=== PATIENT | female | born 1980 | race African-American/Black ===

== ENCOUNTER 2020-12-17 18:25 | Inpatient (IN) | payer OTHER, MEDICAID ==
--- NOTE | 2020-12-17 19:54 | RAD REPORT ---
EXAM DESCRIPTION: RAD - Chest Single View - 12/17/2020 7:47 pm CLINICAL HISTORY: SOB Chest pain. COMPARISON: Chest Pa And Lat (2 Views) dated 11/16/2016; CHEST PA AND LAT 2 VIEW dated 10/07/2015; SAMEERA ST PA AND LAT 2 VIEW dated 09/24/2013; CHEST SINGLE VIEW dated 07/20/2009 FINDINGS: Portable technique limits examination quality. Patchy opacities are present particularly in the right lung likely representing pulmonary edema or pn eumonia. The heart is moderately enlarged in size. No displaced fractures.
[2020-12-17 20:13] LABS: Protime INR 0.97
[2020-12-17 20:14] LABS: Basophils % 0.8 % (0-1.3); Lymphocytes % 17.2 % (15.3-44.8); MPV 9.1 fL (7.6-11.3); RBC Red Blood Cell Count 3.59 M/uL (3.86-4.86)
[2020-12-17] MEDS ORDERED: FUROSEMIDE 20 MG/ 2ML VIAL ONE (20:25)
[2020-12-17 20:27] LABS: ALT/SGPT 10 U/L (12-78); AST/SGOT 11 U/L (15-37); Albumin 2.6 g/dL (3.4-5.0); Alkaline Phosphatase 90 U/L (45-117); BUN Blood Urea Nitrogen 31 mg/dL (7-18); Bicarbonate 26 mmol/L (21-32); Bilirubin Direct < 0.1 mg/dL (0-0.2); Bilirubin Total 0.3 mg/dL (0.2-1.0); Glucose Level 336 mg/dL (74-106); Magnesium 1.5 mg/dL (1.8-2.4); Potassium 4.3 mmol/L (3.5-5.1); Protein, Total 7.9 g/dL (6.4-8.2); Sodium Level 139 mmol/L (136-145)
[2020-12-17 20:29] LABS: NT PRO-BNP 2055 pg/mL (<125); Troponin (Emerg Dept Use Only) < 0.02 ng/mL (0.0-0.045)
[2020-12-17 20:52] LABS: Urine Blood 2+ (NEG); Urine Glucose 2+ (NEG); Urine Protein 3+ (NEG)
[2020-12-17] MEDS ORDERED: NITROGLYCERIN 1 GM PKT TD ONE (21:21)
--- NOTE | 2020-12-17 21:22 | EDPHYS ---
Physician Documentation [facility] Name: Mireille Donovan Age: 40 yrs Sex: Female : 1980 Arrival Date: 12/17/2020 Time: 18:28 Bed 15 Private MD: ED Physician Aj Quan HPI: 12/17 19:27 This 40 yrs old Black Female presents to ER via Wheelchair with complaints of Shortness mh7 Of Breath, CHF. 19:27 The patient has shortness of breath with light activity. Onset: The symptoms/episode mh7 began/occurred 4 day(s) ago. Duration: The symptoms are intermittent, with no pattern. The patient's shortness of breath is aggravated by exertion. Associated signs and symptoms: Pertinent positives: non-productive cough, Pertinent negatives: chest pain, productive cough, diaphoresis, dizziness, fever, hemoptysis, loss of consciousness, nausea, numbness in extremities, visual changes, vomiting. Severity of symptoms: At their worst the symptoms were moderate 2 hour(s) ago, in the emergency department the symptoms are unchanged. The patient has experienced similar episodes in the past, several times. Historical: - Allergies: 18:36 No Known Allergies; ll1 - Home Meds: 20:04 atorvastatin 80 mg Oral tab 1 tab once daily [Active]; metformin 500 mg Oral tab 1 tab vg1 2 times per day [Active]; hydrochlorothiazide 25 mg Oral tab 1 tab once daily [Active]; carvedilol 25 mg Oral tab 1 tab 2 times per day [Active]; Bumetanide Oral [Active]; Spironolactone Oral [Active]; Hydralazine Oral [Active]; - PMHx: 18:36 CVA; Diabetes - IDDM; Hypertension; CHF; ll1 - PSHx: 18:36 ; R knee; ll1 - Immunization history:: Flu vaccine is not up to date. - Social history:: Smoking status: Patient denies any tobacco usage or history of. ROS: 19:27 Constitutional: Negative for fever, chills, and weight loss, Eyes: Negative for injury, mh7 pain, redness, and discharge, ENT: Negative for injury, pain, and discharge, Neck: Negative for injury, pain, and swelling, Cardiovascular: Negative for chest pain, palpitations, and edema, Abdomen/GI: Negative for abdominal pain, nausea, vomiting, diarrhea, and constipation, Back: Negative for injury and pain, : Negative for injury, bleeding, discharge, and swelling, MS/Extremity: Negative for injury and deformity, Skin: Negative for injury, rash, and discoloration, Neuro: Negative for headache, weakness, numbness, tingling, and seizure, Psych: Negative for depression, anxiety, suicide ideation, homicidal ideation, and hallucinations, Allergy/Immunology: Negative for hives, rash, and allergies, Endocrine: Negative for neck swelling, polydipsia, polyuria, polyphagia, and marked weight changes, Hematologic/Lymphatic: Negative for swollen nodes, abnormal bleeding, and unusual bruising. Exam: 19:27 Constitutional: This is a well developed, well nourished patient who is awake, alert, mh7 and in no acute distress. Head/Face: Normocephalic, atraumatic. Eyes: Pupils equal round and reactive to light, extra-ocular motions intact. Lids and lashes normal. Conjunctiva and sclera are non-icteric and not injected. Cornea within normal limits. Periorbital areas with no swelling, redness, or edema. Neck: Trachea midline, no thyromegaly or masses palpated, and no cervical lymphadenopathy. Supple, full range of motion without nuchal rigidity, or vertebral point tenderness. No Meningismus. Chest/axilla: Normal chest wall appearance and motion. Nontender with no deformity. No lesions are appreciated. 19:27 Abdomen/GI: Soft, non-tender, with normal bowel sounds. No distension or tympany. No guarding or rebound. No evidence of tenderness throughout. Back: No spinal tenderness. No costovertebral tenderness. Full range of motion. Skin: Warm, dry with normal turgor. Normal color with no rashes, no lesions, and no evidence of cellulitis. MS/ Extremity: Pulses equal, no cyanosis. Neurovascular intact. Full, normal range of motion. Neuro: Awake and alert, GCS 15, oriented to person, place, time, and situation. Cranial nerves II-XII grossly intact. Motor strength 5/5 in all extremities. Sensory grossly intact. Cerebellar exam normal. Normal gait. Psych: Awake, alert, with orientation to person, place and time. Behavior, mood, and affect are within normal limits. 19:27 Cardiovascular: Rate: tachycardic, Rhythm: regular, Pulses: no pulse deficits are appreciated, Heart sounds: normal, normal S1and S2, Edema: is not appreciated, JVD: is not appreciated. 19:27 Respiratory: the patient does not display signs of respiratory distress, Respirations: normal, Breath sounds: rhonchi, that are mild, are scattered, Respiratory rate: 20 Vital Signs: 18:36 BP 231 / 116; Pulse 111; Resp 18; Temp 97.4; Pulse Ox 94% ; Weight 176.9 kg; Height 5 ll1 ft. 5 in. (165.10 cm); Pain 4/10; 18:54 BP 229 / 90; Pulse 105; Resp 22; Pulse Ox 98% on R/A; vg1 20:05 BP 256 / 115; Pulse 105; Resp 24; Pulse Ox 97% on 2 lpm NC; vg1 20:30 BP 230 / 114; Pulse 99; Resp 26; Pulse Ox 98% on 2 lpm NC; vg1 21:00 BP 210 / 113; Pulse 100; Resp 26; Pulse Ox 99% on 2 lpm NC; vg1 18:36 Body Mass Index 64.90 (176.90 kg, 165.10 cm) ll1 MDM: 21:20 Differential diagnosis: Anemia Anxiety Reaction asthma, Bronchitis CHF exacerbation, [facility] Chronic Obstructive Pulmonary Disease Myocardial Infarction pneumonia, Pneumothorax Psychogenic pulmonary edema, reactive airway disease. Data reviewed: vital signs, nurses notes, old medical records, lab test result(s), cardiac enzymes, CBC, electrolytes, urinalysis, EKG, radiologic studies, plain films. Data interpreted: Pulse oximetry: on 2L(s) per nasal canula, is 99 %. Interpretation: acceptable. Counseling: I had a detailed discussion with the patient and/or guardian regarding: the historical points, exam findings, and any diagnostic results supporting the discharge/admit diagnosis, the presence of at least one elevated blood pressure reading (>120/80) during this emergency department visit, lab results, radiology results, the need for further work-up and treatment in the hospital. 21:22 Patient medically screened. [facility] 12/17 19:11 Order name: Basic Metabolic Panel [facility] 12/17 19:11 Order name: CBC with Diff [facility] 12/17 19:11 Order name: LFT's [facility] 12/17 19:11 Order name: Magnesium [facility] 12/17 19:11 Order name: NT PRO-BNP [facility] 12/17 19:11 Order name: PT-INR; Complete Time: 20:55 [facility] 12/17 19:11 Order name: Troponin (emerg Dept Use Only); Complete Time: 20:55 [facility] 12/17 19:11 Order name: Basic Metabolic Panel; Complete Time: 20:55 [facility] 12/17 19:11 Order name: CBC with Automated Diff; Complete Time: 20:55 [facility] 12/17 19:11 Order name: Liver (Hepatic) Function; Complete Time: 20:55 [facility] 12/17 19:11 Order name: Magnesium; Complete Time: 20:55 [facility] 12/17 19:11 Order name: NT PRO-BNP; Complete Time: 20:55 [facility] 12/17 20:05 Order name: Urine Dipstick--Ancillary (enter results); Complete Time: 20:55 [facility] 12/17 20:05 Order name: Urine --Ancillary (enter results); Complete Time: 20:55 [facility] 12/17 19:11 Order name: XRAY Chest (1 view); Complete Time: 20:07 [facility] 12/17 19:11 Order name: EKG; Complete Time: 19:12 [facility] 12/17 19:11 Order name: Cardiac monitoring; Complete Time: 19:53 [facility] 12/17 20:56 Order name: Blood Culture Adult (2) [facility] 12/17 21:17 Order name: SARS-COV-2 RT PCR; Complete Time: 21:17 [facility] 12/17 21:43 Order name: Magnesium [facility] 12/17 21:43 Order name: CONS Pharmacy Consult [facility] 12/17 21:43 Order name: CONS Physician Consult [facility] 12/17 21:43 Order name: Echo with Doppler [facility] 12/17 21:43 Order name: Thyroid Stimulating Hormone [facility] 12/17 21:43 Order name: Troponin I [facility] 12/17 21:44 Order name: Renal Ultrasound-Complete [facility] 12/17 19:11 Order name: EKG - Nurse/Tech; Complete Time: 19:53 [facility] 12/17 19:11 Order name: IV Saline Lock; Complete Time: 19:43 [facility] 12/17 19:11 Order name: Labs collected and sent; Complete Time: 19:43 [facility] 12/17 19:11 Order name: O2 Per Protocol; Complete Time: 19:43 [facility] 12/17 19:11 Order name: O2 Sat Monitoring; Complete Time: 19:43 [facility] 12/17 19:11 Order name: Urine Dipstick-Ancillary (obtain specimen); Complete Time: 20:11 [facility] 12/17 19:15 Order name: Urine Test (obtain specimen); Complete Time: 20:11 7 Administered Medications: 20:15 Drug: Lasix 20 mg Route: IVP; Site: right antecubital; vg1 21:00 Follow up: Response: No adverse reaction [facility] 21:10 Drug: Nitro-Bid Ointment 2 % 1 inches Route: Transdermal; Site: anterior chest wall; vg1 22:16 Follow up: Response: No adverse reaction [facility] 21:42 Drug: Insulin Regular Human 10 units {Co-Signature: jenny (Johnson Waite RN).} Route: vg1 Sub-Q; Site: right upper arm; 22:16 Follow up: Response: No adverse reaction [facility] Disposition: 12/17/20 21:22 Hospitalization ordered by Isabel Varela for Inpatient Admission. Preliminary diagnosis are CHF Exacerbation, Uncontrolled Hypertension. - Bed requested for Telemetry/MedSurg (Inpatient). - Status is Inpatient Admission. vg1 - Condition is Stable. - Problem is an acute exacerbation. - Symptoms have improved. Signatures: Dispatcher [employer] EDPA Mariah Robertson RN RN mw Garcia, Victoria, RN RN vg1 Ted Ward RN RN 1 Aj Quan MD MD [facility] Johnson Waite RN jb4 Corrections: (The following items were deleted from the chart) 20:34 20:09 CORONAVIRUS+MR.LAB.BRZ ordered. [facility] 21:32 21:22 Hospitalization Ordered by Isabel Varela MD for Inpatient Admission. Preliminary mw diagnosis is CHF Exacerbation; Uncontrolled Hypertension. Bed requested for Telemetry/MedSurg (Inpatient). Status is Inpatient Admission. Condition is Stable. Problem is an acute exacerbation. Symptoms have improved. [facility] 22:16 21:32 12/17/2020 21:22 Hospitalization Ordered by Isabel Varela MD for Inpatient vg1 Admission. Preliminary diagnosis is CHF Exacerbation; Uncontrolled Hypertension. Bed requested for Telemetry/MedSurg (Inpatient). Status is Inpatient Admission. Condition is Stable. Problem is an acute exacerbation. Symptoms have improved. mw
--- NOTE | 2020-12-17 21:22 | ER ---
Nurse's Notes [facility] [place] Name: Mireille Donovan Age: 40 yrs Sex: Female : 1980 Arrival Date: 12/17/2020 Time: 18:28 Bed 15 Private MD: Diagnosis: CHF Exacerbation;Uncontrolled Hypertension Presentation: 12/17 18:36 Chief complaint: Patient states: SOB and fluid build up for 4 days. Can't breathe ll1 laying flat. No fever. Coronavirus screen: Client denies travel out of the [place] in the last 14 days. At this time, the client does not indicate any symptoms associated with coronavirus-19. Ebola Screen: Patient denies travel to an Ebola-affected area in the 21 days before illness onset. Initial Sepsis Screen: Does the patient meet any 2 criteria? HR > 90 bpm. No. Patient's initial sepsis screen is negative. Does the patient have a suspected source of infection? Yes: Other: possible CHF. Risk Assessment: Do you want to hurt yourself or someone else? Patient reports no desire to harm self or others. Onset of symptoms was December 13, 2020. 18:36 Method Of Arrival: Wheelchair ll1 18:36 Acuity: NICOLE 3 ll1 Historical: - Allergies: 18:36 No Known Allergies; ll1 - Home Meds: 20:04 atorvastatin 80 mg Oral tab 1 tab once daily [Active]; metformin 500 mg Oral tab 1 tab vg1 2 times per day [Active]; hydrochlorothiazide 25 mg Oral tab 1 tab once daily [Active]; carvedilol 25 mg Oral tab 1 tab 2 times per day [Active]; Bumetanide Oral [Active]; Spironolactone Oral [Active]; Hydralazine Oral [Active]; - PMHx: 18:36 CVA; Diabetes - IDDM; Hypertension; CHF; ll1 - PSHx: 18:36 ; R knee; ll1 - Immunization history:: Flu vaccine is not up to date. - Social history:: Smoking status: Patient denies any tobacco usage or history of. Screenin:54 Abuse screen: Denies threats or abuse. Nutritional screening: No deficits noted. vg1 Tuberculosis screening: No symptoms or risk factors identified. Fall Risk No fall in past 12 months (0 pts). No secondary diagnosis (0 pts). IV access (20 points). Ambulatory Aid- None/Bed Rest/Nurse Assist (0 pts). Gait- Normal/Bed Rest/Wheelchair (0 pts) Mental Status- Oriented to own ability (0 pts). Total Mares Fall Scale indicates No Risk (0-24 pts). Assessment: 18:52 General: Appears in no apparent distress. comfortable, Behavior is calm, cooperative. vg1 Pain: Denies pain. Neuro: Level of Consciousness is awake, alert, obeys commands, Oriented to person, place, time, situation. Cardiovascular: Heart tones S1 S2 Pulses apical and radial pulses equal and regular. Respiratory: Reports shortness of breath when laying on Right side. Airway is patent Respiratory effort is even, unlabored, Respiratory pattern is regular, symmetrical, Breath sounds are clear bilaterally. GI: No signs and/or symptoms were reported involving the gastrointestinal system. : No signs and/or symptoms were reported regarding the genitourinary system. EENT: No signs and/or symptoms were reported regarding the EENT system. Derm: Skin is intact, is healthy with good turgor. Musculoskeletal: Circulation, motion, and sensation intact. 20:04 Reassessment: Patient appears in no apparent distress at this time. No changes from vg1 previously documented assessment. Patient and/or family updated on plan of care and expected duration. Pain level reassessed. Patient is alert, oriented x 3, equal unlabored respirations, skin warm/dry/pink. 20:09 Reassessment: Received VO from Dr Quan to administer Lasix 20 mg IVP x1. vg1 Vital Signs: 18:36 BP 231 / 116; Pulse 111; Resp 18; Temp 97.4; Pulse Ox 94% ; Weight 176.9 kg; Height 5 ll1 ft. 5 in. (165.10 cm); Pain 4/10; 18:54 BP 229 / 90; Pulse 105; Resp 22; Pulse Ox 98% on R/A; vg1 20:05 BP 256 / 115; Pulse 105; Resp 24; Pulse Ox 97% on 2 lpm NC; vg1 20:30 BP 230 / 114; Pulse 99; Resp 26; Pulse Ox 98% on 2 lpm NC; vg1 21:00 BP 210 / 113; Pulse 100; Resp 26; Pulse Ox 99% on 2 lpm NC; vg1 18:36 Body Mass Index 64.90 (176.90 kg, 165.10 cm) ll1 ED Course: 18:28 Patient arrived in ED. mr 18:36 Arm band placed on Patient placed in an exam room, on a stretcher. ll1 18:37 Triage completed. ll1 18:42 Theresa Pratt, RN is Primary Nurse. vg1 18:54 Patient has correct armband on for positive identification. Bed in low position. Call vg1 light in reach. Side rails up X 1. 19:00 Aj Quan MD is Attending Physician. mh7 19:10 Missed attempt(s): 20 gauge in left antecubital area. Bleeding controlled, band aid jp3 applied, catheter tip intact. 19:42 Initial lab(s) drawn, by ED staff, sent to lab. Inserted saline lock: 22 gauge in right vg1 antecubital area, using aseptic technique. ,using aseptic technique. Done by Antonia FREDERICK Blood collected. 19:47 XRAY Chest (1 view) In Process Unspecified. EDMS 19:55 EKG done, by ED staff, reviewed by Aj Quan MD. vg1 20:11 Urine collected: clean catch specimen, clear, hien colored. vg1 20:40 COVID swab sent to lab. jp3 21:00 First set of blood cultures drawn by me. jp3 21:10 Second set of blood cultures drawn by me. jp3 21:21 Isabel Varela MD is Hospitalizing Provider. 7 22:01 No provider procedures requiring assistance completed. Patient admitted, IV remains in vg1 place. Administered Medications: 20:15 Drug: Lasix 20 mg Route: IVP; Site: right antecubital; vg1 21:00 Follow up: Response: No adverse reaction vg1 21:10 Drug: Nitro-Bid Ointment 2 % 1 inches Route: Transdermal; Site: anterior chest wall; vg1 22:16 Follow up: Response: No adverse reaction vg1 21:42 Drug: Insulin Regular Human 10 units {Co-Signature: jbRaymond (Johnson Waite RN).} Route: vg1 Sub-Q; Site: right upper arm; 22:16 Follow up: Response: No adverse reaction vg1 Outcome: 21:22 Decision to Hospitalize by Provider. 7 22:01 Admitted to Tele accompanied by tech, via stretcher, room 214, with oxygen, with chart, vg1 Report called to OTONIEL Lu 22:01 Condition: good 22:01 Instructed on the need for admit. 22:16 Patient left the ED. vg1 Signatures: Dispatcher [employer] STACY Karlo Keyonna Gan, Romie jp3 Theresa Pratt, RN RN vg1 Ted Ward RN RN ll1 Aj Quan MD MD mh7 Johnson Waite RN jb4
--- NOTE | 2020-12-17 21:32 | P.HP ---
Certification for Inpatient With expected LOS: >2 Midnights Patient will require the following post-hospital care: None Practitioner: I am a practitioner with admitting privileges, knowledge of patient current condition, hospital course, and medical plan of care. Services: Services provided to patient in accordance with Admission requirements found in Title 42 Section 412.3 of the Code of Federal Regulations Patient History Date of Service: 12/18/20 Reason for admission: Shortness of breath History of Present Illness: 40-year-old female with past medical history of diabetes mellitus type 1, hypertension, CHF-syetolic with EF 30-395 in 2017 , presented because of worsening shortness of breath, initially was on exertion but later became at rest. On admission she was noted mildly dyspneic requiring supplemental O2. She was also noted with marked elevated blood pressure with systolic of 210/116. She admits to compliance with her medications including her daily lasix use . She denies any chest pain. She denies any fever or chills. She admits to cough which dry sputum. Her cough B screen was negative. Chest x-ray shows bilateral interstitial pattern consistent with pneumonia vessels CHF. She has been admitted for presumed CHF exacerbation. Allergies NKDA Allergy (Uncoded 10/07/15 15:54) Unknown No Known Allergies Allergy (Uncoded 11/23/16 14:03) Unknown Home medications list reviewed: No Home Medications: Liraglutide [Victoza 3-Mandeep] 1.8 ml PO DAILY 11/16/16 Montelukast [Singulair*] 10 mg PO DAILY 11/16/16 Sertraline [Zoloft*] 50 mg PO BEDTIME 11/16/16 Atorvastatin Calcium [Lipitor] 80 mg PO BEDTIME #0 tab 11/18/16 Furosemide [Lasix*] 80 mg PO DAILY #30 tab 11/18/16 Hydralazine [Apresoline*] 50 mg PO TID #90 tab 11/18/16 Sacubitril/Valsartan [Entresto 49 mg-51 mg Tablet] 2 tab PO BID #120 tab 11/18/16 carvediloL [Coreg*] 25 mg PO BID 6AM 6PM tab 11/18/16 Pen Needle, Diabetic [Insulin Pen Needle] 1 dis.ndl [facility] BREAKFAST 12/17/20 Pen Needle, Diabetic [Insulin Pen Needle] 1 dis.ndl MC TID 12/17/20 Pen Needle, Diabetic [Insulin Pen Needle] See Protocol SQ BEDTIME 12/17/20 - Past Medical/Surgical History Diabetic: Yes -: HTN -: CVA -: DM -: C SECTION -: RIGHT KNEE SURGERY - Family History Mother -: Hypertension, Diabetes Father -: Hypertension, Diabetes, Stroke - Social History Smoking Status: Never smoker Alcohol use: Yes CD- Drugs: No Caffeine use: Yes Place of Residence: Home Review of Systems 10-point ROS is otherwise unremarkable Physical Examination - Physical Exam General: Alert, Oriented x3, Cooperative, Mild distress HEENT: Atraumatic, Normocephalic, PERRLA Neck: Supple, 2+ carotid pulse no bruit, JVD not distended Respiratory: Diminished, Crackles/rales Cardiovascular: Normal pulses, Regular rate/rhythm, Normal S1 S2 Gastrointestinal: Normal bowel sounds, Soft and benign, Non-distended Musculoskeletal: No clubbing, No swelling Integumentary: No rashes, No breakdown Neurological: Normal gait, Normal speech, Normal strength at 5/5 x4 extr - Studies Laboratory Data (last 24 hrs) 12/17/20 19:40: PT 11.2, INR 0.97 12/17/20 19:40: WBC 11.70 H, Hgb 10.5 L, Hct 32.0 L, Plt Count 377 12/17/20 19:40: Sodium 139, Potassium 4.3, BUN 31 H, Creatinine 1.89 H, Glucose 336 H, Magnesium 1.5 L, Total Bilirubin 0.3, AST 11 L, ALT 10 L, Alkaline Phosphatase 90 Imagings Data: Chest x-ray -Patchy opacities are present particularly in the right lung likely representing pulmonary edema or pneumonia. The heart is moderately enlarged in size. No displaced fractures. Assessment and Plan - Problems (Diagnosis) (1) ARF (acute renal failure) Current Visit: Yes Status: Acute (2) Malignant hypertensive urgency Current Visit: Yes Status: Acute (3) Diabetes Current Visit: Yes Status: Acute (4) CHF (congestive heart failure) Current Visit: No Status: Acute (5) Cardiomyopathy Current Visit: No Status: Acute (6) Hypomagnesemia Current Visit: Yes Status: Acute - Plan #Acute CHF exacerbation-may be due to acute on chronic systolic CHF - obtain repeat echocardiogram -start IV Lasix 60 mg Q 12 -monitor intake and output -Strict fluid restriction to less than 1.2 L per day -Daily weights -serial CE May need cardiology consult #Hypertensive urgency-will start IV labetalol 20 mg x1 now - resume coreg -adjust hydralazine to 100 tid -Add isosorbide to aid hydralazine for cardiac protection -Hold Fausto or Arb for now since azotemia -Hold Entresto for now until Creatinine stabilize May be due to renal artery stenosis, will obtain renal Doppler #Acute kidney injury-prior baseline creatinine of 1.3 -hold Fausto or Arb -follow with diureses -may be due to cardiorenal syndrome -will obtained nephrology consult to follow -Proteinuria noted , follow proteinuria level as outpt -may be due to DM nephropathy #Diabetes mellitus - continue insulin regimen, continue home meds - Accu-Cheks Q 6 #DVT prophylaxis-subcutaneous heparin/Lovenox #Advanced directive-full code next #Disposition -possible hospital stay for more than 48 hr workup - Advance Directives Does patient have a Living Will: No Does patient have a Durable POA for Healthcare: No
[2020-12-17] MEDS ORDERED: LORAZEPAM 0.5 MG TABLET PO PRN (21:34)
[2020-12-17] MEDS ORDERED: HYDRALAZINE HCL 20 MG/ML VIAL IV PRN (21:34)
[2020-12-17] MEDS ORDERED: ALBUTEROL 2.5 MG/3 ML NEB SOL NEB PRN (21:34)
[2020-12-17] MEDS ORDERED: MORPHINE 2 MG/ML SYR IV PRN (21:34)
[2020-12-17] MEDS ORDERED: GLUCAGON 1 MG/VIAL IM PRN (21:34)
[2020-12-17] MEDS ORDERED: D50W 25 GM/50 ML SYRINGE IV PRN (21:34)
[2020-12-17] MEDS ORDERED: GUAIFENESIN/DM 5 ML UCUP PO PRN (21:34)
[2020-12-17] MEDS ORDERED: ONDANSETRON 4 MG/2 ML VIAL IV PRN (21:35)
[2020-12-17] MEDS ORDERED: LABETALOL 20 MG/4ML SYRINGE IV ONE (21:39)
[2020-12-17] MEDS ORDERED: INSULIN -REGULAR HUMAN 50 UNIT/0.5 ML ML ONE (21:51)
[2020-12-17] MEDS: ISOSORBIDE DINIT 20 MG TAB PO SCH (22:43)
[2020-12-17] MEDS: FUROSEMIDE 40 MG/4 ML VIAL IV SCH (22:44)
[2020-12-17] MEDS: HYDRALAZINE HCL 25 MG TABLET PO SCH (22:44)
[2020-12-17] MEDS: Magnesium Sulfate 2gm IVPB 2 G/50 ML BAG IV SCH ×2 (22:44→23:45)
[2020-12-18 00:03] LABS: Troponin I 0.02 ng/mL (0.0-0.045)
[2020-12-18 00:04] LABS: Thyroid Stimulating Hormone 4.31 uIU/mL (0.360-3.740)
[2020-12-18 00:06] LABS: Magnesium 1.4 mg/dL (1.8-2.4)
[2020-12-18] MEDS: HEPARIN 5000 UNIT/ML 1 ML VIAL SQ SCH ×3 (01:53→17:53)
[2020-12-18 04:31] LABS: Absolute Lymphocytes (CBC) 2.3 K/uL (0.7-4.9); Basophils % 1.2 % (0-1.3); Hematocrit 29.5 % (36.0-45.0); Lymphocytes % 21.6 % (15.3-44.8); MPV 9.3 fL (7.6-11.3)
[2020-12-18 04:38] LABS: Albumin 2.3 g/dL (3.4-5.0); Bilirubin Total 0.3 mg/dL (0.2-1.0); Magnesium 2.2 mg/dL (1.8-2.4); Potassium 4.3 mmol/L (3.5-5.1); Protein, Total 6.7 g/dL (6.4-8.2)
[2020-12-18] MEDS: carvediloL 25 MG TAB PO SCH ×2 (05:35→17:53)
[2020-12-18 05:39] VITALS: BMI 66.3
[2020-12-18] MEDS ORDERED: INSULIN -REGULAR HUMAN 50 UNIT/0.5 ML ML SQ SCH (07:30)
--- NOTE | 2020-12-18 07:54 | EKG ---
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
[2020-12-18] MEDS: MONTELUKAST 10 MG TAB PO SCH (09:17)
[2020-12-18] MEDS: HYDRALAZINE HCL 25 MG TABLET PO SCH ×3 (09:17→21:00)
[2020-12-18] MEDS: ASPIRIN EC 81 MG TAB PO SCH (09:18)
[2020-12-18] MEDS: ISOSORBIDE DINIT 20 MG TAB PO SCH ×3 (09:18→21:00)
[2020-12-18] MEDS: FUROSEMIDE 40 MG/4 ML VIAL IV SCH ×2 (09:19→21:32)
[2020-12-18] MEDS: INSULIN -REGULAR HUMAN 50 UNIT/0.5 ML ML SQ SCH ×4 (09:20→21:00)
--- NOTE | 2020-12-18 09:32 | P.CNS ---
Date of Consult: 12/18/20 Reason for Consult: NIKOLAY/CKD Chief Complaint: Shortness of breath History of Present Illness: A 40-year-old AA woman with past medical history of Morbid obesity, CKD , IDDM Dx 20 years ago, hypertension, CHF on Entresto and Bumex 2mg bid and HCTZ pt presented with SOB in ER Cr 1.9 , SBP 210, Chest x-ray shows bilateral interstitial pattern consistent with pneumonia vessels CHF. Review of Systems: Head and Neck: No red eye. No ear pain. GI: denied nausea or diarrhea. : No polyuria. No dysuria. No hematuria. 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 Cardiovascular: denied chest pain or palpitation Endocrine: No polydipsia. Skin: No rash. Neuro: denied neuropathy. Musculoskeletal: denied joint pain Physical exam general: AAOX3, in mild distress , obese Neck; Supple, No elevated JVD hear: RRR, normal S1,2 no murmur or rub Chest: decreased air entry b/L Abdomen: Soft , Nt Extremities: +1 edema A/P NIKOLAY vs CKD no available recent labs proteninuric will order US cont lasix avoid NSAID nad contrast CHF with pulmonary edema F/U TTE Cont lasix cont to hold entresto DM SSI HTN BP is better controlled now cont to hold entresto total time spent 65min Allergies NKDA Allergy (Uncoded 10/07/15 15:54) Unknown No Known Allergies Allergy (Uncoded 11/23/16 14:03) Unknown Home Medications: Liraglutide [Victoza 3-Mandeep] 1.8 ml PO DAILY 11/16/16 Montelukast [Singulair*] 10 mg PO DAILY 11/16/16 Sertraline [Zoloft*] 50 mg PO BEDTIME 11/16/16 Atorvastatin Calcium [Lipitor] 80 mg PO BEDTIME #0 tab 11/18/16 Furosemide [Lasix*] 80 mg PO DAILY #30 tab 11/18/16 Hydralazine [Apresoline*] 50 mg PO TID #90 tab 11/18/16 Sacubitril/Valsartan [Entresto 49 mg-51 mg Tablet] 2 tab PO BID #120 tab 11/18/16 carvediloL [Coreg*] 25 mg PO BID 6AM 6PM tab 01/15/17 Pen Needle, Diabetic [Insulin Pen Needle] 1 dis.ndl MC BREAKFAST 12/17/20 Pen Needle, Diabetic [Insulin Pen Needle] 1 dis.ndl MC TID 12/17/20 Pen Needle, Diabetic [Insulin Pen Needle] See Protocol SQ BEDTIME 12/17/20 - Past Medical/Surgical History Diabetic: Yes -: HTN -: CVA -: DM -: C SECTION -: RIGHT KNEE SURGERY - Family History Mother Medical History: Hypertension, Diabetes Father Medical History: Hypertension, Diabetes, Stroke - Social History Smoking Status: Unknown if ever smoked Alcohol use: Yes CD- Drugs: No Caffeine use: Yes Place of Residence: Home Physical Examination Temp Pulse Resp BP Pulse Ox 97.6 F 78 20 168/77 H 96 12/18/20 08:00 12/18/20 08:00 12/18/20 08:00 12/18/20 08:00 12/18/20 08:00 Laboratory Data (last 24 hrs) 12/17/20 19:40: PT 11.2, INR 0.97 12/17/20 19:40: WBC 11.70 H, Hgb 10.5 L, Hct 32.0 L, Plt Count 377 12/17/20 19:40: Sodium 139, Potassium 4.3, BUN 31 H, Creatinine 1.89 H, Glucose 336 H, Magnesium 1.5 L, Total Bilirubin 0.3, AST 11 L, ALT 10 L, Alkaline Phosphatase 90
--- NOTE | 2020-12-18 11:23 | P.PN ---
Subjective Date of Service: 12/18/20 Chief Complaint: Shortness of breath Patient states she feels better. She is maintained on oxygen by nasal cannula. Physical Examination - Vital Signs Temperature: 97.6 F Blood Pressure: 168/77 Pulse: 78 Respirations: 20 Pulse Ox (%): 96 - Physical Exam General: Alert, In no apparent distress, Obese HEENT: Atraumatic, PERRLA, Mucous membr. moist/pink, Sclerae nonicteric Neck: Supple, JVD not distended Respiratory: Diminished Cardiovascular: Regular rate/rhythm, Normal S1 S2 Gastrointestinal: Soft and benign, Non-distended, No tenderness Musculoskeletal: No tenderness, Swelling (Bilateral legs) Integumentary: No rashes, No erythema Neurological: Normal strength at 5/5 x4 extr, Cranial nerves 3-12 intact - Studies Laboratory Data (last 24 hrs) 12/17/20 19:40: PT 11.2, INR 0.97 12/17/20 19:40: WBC 11.70 H, Hgb 10.5 L, Hct 32.0 L, Plt Count 377 12/17/20 19:40: Sodium 139, Potassium 4.3, BUN 31 H, Creatinine 1.89 H, Glucose 336 H, Magnesium 1.5 L, Total Bilirubin 0.3, AST 11 L, ALT 10 L, Alkaline Phosphatase 90 Assessment And Plan - Current Problems (Diagnosis) (1) Acute diastolic heart failure Current Visit: Yes Status: Acute (2) Morbid obesity Current Visit: Yes Status: Acute (3) ARF (acute renal failure) Current Visit: Yes Status: Acute (4) Diabetes Current Visit: Yes Status: Acute (5) Malignant hypertensive urgency Current Visit: Yes Status: Acute - Plan Continue IV Lasix. IV hydralazine p.r.n. for BP spikes. Resume home antihypertensives. Hydralazine increased to 100 mg t.i.d. Coreg maintained at 25 mg b.i.d. Echocardiogram is pending. Nephrology input appreciated. Patient noted to have significant proteinuria. Nephrology is managing. Insulin sliding scale and Lantus insulin for glucose management.
[2020-12-18] MEDS: SERTRALINE HCL 50 MG TAB PO SCH (21:00)
[2020-12-18] MEDS: INSULIN GLARGINE 100 UNITS/ML SQ SCH (21:00)
[2020-12-18] MEDS: ATORVASTATIN 80 MG TAB PO SCH (21:00)
[2020-12-18] MEDS: ACETAMINOPHEN 500 MG TAB PO PRN (21:49)
[2020-12-19] MEDS: HEPARIN 5000 UNIT/ML 1 ML VIAL SQ SCH ×3 (01:20→17:39)
[2020-12-19 04:34] LABS: Absolute Lymphocytes (CBC) 2.1 K/uL (0.7-4.9); Basophils % 0.4 % (0-1.3); Hematocrit 25.8 % (36.0-45.0); Lymphocytes % 17.6 % (15.3-44.8); MPV 8.3 fL (7.6-11.3); RBC Red Blood Cell Count 2.91 M/uL (3.86-4.86)
[2020-12-19 04:51] LABS: Albumin 2.5 g/dL (3.4-5.0); Bilirubin Total 0.3 mg/dL (0.2-1.0); Potassium 4.4 mmol/L (3.5-5.1); Protein, Total 7.1 g/dL (6.4-8.2)
[2020-12-19] MEDS: carvediloL 25 MG TAB PO SCH ×2 (05:49→17:38)
[2020-12-19] MEDS: INSULIN -REGULAR HUMAN 50 UNIT/0.5 ML ML SQ SCH ×4 (07:30→20:52)
[2020-12-19] MEDS: HYDRALAZINE HCL 25 MG TABLET PO SCH ×3 (09:00→20:52)
[2020-12-19] MEDS ORDERED: AMLODIPINE 10 MG TAB PO SCH (09:12)
[2020-12-19] MEDS: FUROSEMIDE 40 MG/4 ML VIAL IV SCH ×2 (10:00→18:05)
--- NOTE | 2020-12-19 10:45 | RAD REPORT ---
EXAM DESCRIPTION: US - Abdomen Pelvis Scan US - 12/19/2020 9:44 am CLINICAL HISTORY: HTN urgency Final report was delayed due to technical difficulty with the PACs Fluency reporting system COMPARISON: No comparisons TECHNIQUE: Sonographic evaluation of the kidneys was performed with measurements obtained and gross anatomic assessment performed.Doppler evaluation of the renal arteries, interlobar arteries and aorta performed. Waveforms and velocities were recorded. The renal artery ratios and resistive index kelsie ues were calculated. FINDINGS: Right kidney is 11.8 x 5.4 x 6.0 cm. Left kidney is 13.3 x 5.1 x 5.2 cm. Cortical thicknes s and echogenicity are normal. No hydronephrosis or suspicious renal mass. Doppler evaluation of the renal vasculature shows no suspicious waveform pattern. No suspicious veloc ity findings. Right renal artery resistive index values range from 0.79-0.83 in value. Proximal left renal artery was not optimally visualized. Resistive index values are 0.69 and 0.75 in value for the left renal artery. Right renal arcuate artery were resistive index value is 0.81 with the left resist fabrizio index value for the arcuate artery 0.83 in value. Renal artery ratios are well within normal range. IMPRESSION: Renal vascular study showing no evidence for renal artery stenosis. No vascular abnormal ity seen. Kidneys are normal size and symmetric in size. Cortical thickness and echogenicity are normal with no hydronephrosis or suspicious mass.
[2020-12-19] MEDS: ISOSORBIDE DINIT 20 MG TAB PO SCH ×3 (11:39→20:52)
[2020-12-19] MEDS: ASPIRIN EC 81 MG TAB PO SCH (11:39)
[2020-12-19] MEDS: MONTELUKAST 10 MG TAB PO SCH (11:40)
--- NOTE | 2020-12-19 13:09 | P.PN ---
Subjective Date of Service: 12/19/20 Chief Complaint: Shortness of breath Patient reports an episode of dizziness and swelling on her right face last night. Her serum creatinine is getting worse. Blood pressure still significantly elevated this morning. She still complaining of significant shortness of breath. Physical Examination - Vital Signs Temperature: 97.6 F Blood Pressure: 158/76 Pulse: 74 Respirations: 20 Pulse Ox (%): 98 - Physical Exam General: Alert, In no apparent distress, Oriented x3 Neck: Supple, JVD not distended Respiratory: Diminished Cardiovascular: Regular rate/rhythm, Normal S1 S2, Edema (1+ bilateral lower ex tremity) Gastrointestinal: Soft and benign, No tenderness Musculoskeletal: No tenderness Integumentary: No rashes, No erythema Neurological: Other (No focal motor deficit) Assessment And Plan - Current Problems (Diagnosis) (1) Acute diastolic heart failure Current Visit: Yes Status: Acute (2) Morbid obesity Current Visit: Yes Status: Acute (3) ARF (acute renal failure) Current Visit: Yes Status: Acute (4) Diabetes Current Visit: Yes Status: Acute (5) Malignant hypertensive urgency Current Visit: Yes Status: Acute - Plan Reduce IV Lasix dose to 40 mg b.i.d. IV hydralazine p.r.n. for BP spikes. Patient feels he her symptoms last night is related to the increase in hydralazine dose and requested we cut back to her original dose. Hydralazine decreased to 50 mg t.i.d. Continue Coreg 25 mg b.i.d. Added amlodipine 10 mg daily. Nephrology is following manage renal insufficiency. Echocardiogram is pending. Insulin sliding scale and Lantus insulin for glucose management.
[2020-12-19 13:41] LABS: Urine Protein/Creatinine Ratio 2.01 ratio (<0.15)
[2020-12-19] MEDS: ACETAMINOPHEN 500 MG TAB PO PRN (14:04)
[2020-12-19] MEDS ORDERED: D50W 25 GM/50 ML SYRINGE IV PRN (15:00)
[2020-12-19] MEDS ORDERED: D50W 25 GM/50 ML VIAL IV PRN (16:00)
[2020-12-19] MEDS: SERTRALINE HCL 50 MG TAB PO SCH (20:52)
[2020-12-19] MEDS: INSULIN GLARGINE 100 UNITS/ML SQ SCH (20:53)
[2020-12-19] MEDS: ATORVASTATIN 80 MG TAB PO SCH (20:56)
[2020-12-20] MEDS: HEPARIN 5000 UNIT/ML 1 ML VIAL SQ SCH (01:18)
[2020-12-20 05:52] LABS: Absolute Lymphocytes (CBC) 2.7 K/uL (0.7-4.9); Basophils % 0.3 % (0-1.3); Hematocrit 26.1 % (36.0-45.0); Lymphocytes % 25.9 % (15.3-44.8); MPV 8.2 fL (7.6-11.3); RBC Red Blood Cell Count 2.89 M/uL (3.86-4.86)
[2020-12-20 05:59] LABS: Albumin 2.4 g/dL (3.4-5.0); Bilirubin Total 0.3 mg/dL (0.2-1.0); Magnesium 1.9 mg/dL (1.8-2.4); Potassium 4.1 mmol/L (3.5-5.1); Protein, Total 6.8 g/dL (6.4-8.2)
[2020-12-20 06:43] VITALS: TEMP 97.4
[2020-12-20] MEDS: FUROSEMIDE 40 MG/4 ML VIAL IV SCH (06:46)
[2020-12-20] MEDS: carvediloL 25 MG TAB PO SCH (06:46)
[2020-12-20 06:47] VITALS: BP 164/79
[2020-12-20 08:24] VITALS: O2SAT 96
--- NOTE | 2020-12-20 19:33 | P.DS ---
Admission Date: 12/17/20 Discharge Date: 12/20/20 Disposition: AMA-LEFT AGAINST MEDICAL ADVIC Reason for Admission: Shortness of breath Consultations: Nephrology - Dr. Garner Procedures: Abd U/S (12/17): Renal vascular study showing no evidence for renal artery stenosis. No vascular abnormality seen. Kidneys are normal size and symmetric in size. Cortical thickness and echogenicity are normal with no hydronephrosis or suspicious mass. Doppler evaluation of the renal vasculature shows no suspicious waveform pattern. No suspicious velocity findings. Right renal artery resistive index values range from 0.79-0.83 in value. Proximal left renal artery was not optimally visualized. Resistive index values are 0.69 and 0.75 in value for the left renal artery. Right renal arcuate artery were resistive index value is 0.81 with the left resistive index value for the arcuate artery 0.83 in value. CXR (12/17): Patchy opacities are present particularly in the right lung likely representing pulmonary edema or pneumonia. The heart is moderately enlarged in size. No displaced fractures. Problem List: Acute on chronic systolic heart failure (HFrEF) Malignant hypertensive urgency with h/o HTN ARF (acute renal failure) Diabetes Mellitus, type 1 Morbid obesity Brief History of Present Illness: 40yo F, PMH: DM1, HTN, CHF (EF:30-39% in 2017), presented due to worsening SOB, initially on exertion but later became at rest. At time of admission, she was noted to be mildly dyspneic requiring supplemental O2, noted to have marked elevated BP: 210/116. Reported compliance with her medications, including daily lasix use. Denies chest pain, fevers, chills. +cough with dry sputum. CXR: bilateral insterstitial pattern concerning for pneumonia vs CHF exacerbation. Hospital Course: She was admitted and treated for CHF exacerbation and hypertensive urgency. The patient left AMA. Upon my arrival for morning rounds, patient and her family reported she did not want to continue her medical treatments/care here. 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 I advised against leaving AMA as patient's blood pressure has still been labile. Patient and family stated they had made up to their mind already. Patient was breathing comfortably on room air, she had no headaches/dizziness. Vital Signs/Physical Exam: Temp Pulse Resp BP Pulse Ox 97.4 F 77 20 164/79 H 93 12/20/20 04:00 12/20/20 06:46 12/20/20 04:00 12/20/20 06:46 12/20/20 04:00 General: Alert, In no apparent distress HEENT: Sclerae nonicteric Respiratory: Other (patient deferred; nonlabored on room air at rest) Cardiovascular: Other (patient deferred) Integumentary: No rashes (seen on exposed skin) Laboratory Data at Discharge: WBC 10.40 K/uL (4.3-10.9) 12/20/20 05:30 Hgb 8.6 g/dL (12.0-15.0) L 12/20/20 05:30 Hct 26.1 % (36.0-45.0) L 12/20/20 05:30 Plt Count 346 K/uL (152-406) 12/20/20 05:30 PT 11.2 SECONDS (9.5-12.5) 12/17/20 19:40 INR 0.97 12/17/20 19:40 Sodium 140 mmol/L (136-145) 12/20/20 05:30 Potassium 4.1 mmol/L (3.5-5.1) 12/20/20 05:30 BUN 47 mg/dL (7-18) H 12/20/20 05:30 Creatinine 2.41 mg/dL (0.55-1.3) H 12/20/20 05:30 Glucose 186 mg/dL (74-106) H 12/20/20 05:30 Magnesium 1.9 mg/dL (1.8-2.4) 12/20/20 05:30 Total Bilirubin 0.3 mg/dL (0.2-1.0) 12/20/20 05:30 AST 9 U/L (15-37) L 12/20/20 05:30 ALT 10 U/L (12-78) L 12/20/20 05:30 Alkaline Phosphatase 67 U/L (45-117) 12/20/20 05:30 Troponin I < 0.02 ng/mL (0.0-0.045) 12/18/20 03:59 Home Medications: Liraglutide [Victoza 3-Mandeep] 1.8 ml PO DAILY 11/16/16 Montelukast [Singulair*] 10 mg PO DAILY 11/16/16 Sertraline [Zoloft*] 50 mg PO BEDTIME 11/16/16 Atorvastatin Calcium [Lipitor] 80 mg PO BEDTIME #0 tab 11/18/16 Furosemide [Lasix*] 80 mg PO DAILY #30 tab 11/18/16 Hydralazine [Apresoline*] 50 mg PO TID #90 tab 11/18/16 Sacubitril/Valsartan [Entresto 49 mg-51 mg Tablet] 2 tab PO BID #120 tab 11/18/16 carvediloL [Coreg*] 25 mg PO BID 6AM 6PM tab 11/18/16 Pen Needle, Diabetic [Insulin Pen Needle] 1 dis.ndl MC BREAKFAST 12/17/20 Pen Needle, Diabetic [Insulin Pen Needle] 1 dis.ndl MC TID 12/17/20 Pen Needle, Diabetic [Insulin Pen Needle] See Protocol SQ BEDTIME 12/17/20 Followup: Maday Ann NP [Primary Care Provider] - Time spent managing pt's care (in minutes): 35
== END 2020-12-20 08:38 | disposition left against medical advice (07) | DRG 291 ==
LOC: ER 18:25 → 2ND 22:05 → INTOOBSV 22:05 → OBSVTOIN 12-19 17:37
PROVIDERS: ADMIT Internal Medicine; ATTEND Hospitalist
DX: I13.0 Hypertensive heart and chronic kidney disease with heart failure and stage 1 through stage 4 chronic kidney disease, or unspecified chronic kidney disease (principal); I50.31 Acute diastolic (congestive) heart failure; N17.9 Acute kidney failure, unspecified; Z68.44 Body mass index [BMI] 60.0-69.9, adult; E66.01 Morbid (severe) obesity due to excess calories; I43 Cardiomyopathy in diseases classified elsewhere; E83.42 Hypomagnesemia; N18.9 Chronic kidney disease, unspecified; E11.22 Type 2 diabetes mellitus with diabetic chronic kidney disease; I16.0 Hypertensive urgency; Z53.29 Procedure and treatment not carried out because of patient's decision for other reasons; Z79.84 Long term (current) use of oral hypoglycemic drugs; Z79.899 Other long term (current) drug therapy; Z86.73 Personal history of transient ischemic attack (TIA), and cerebral infarction without residual deficits; Z20.822 Contact with and (suspected) exposure to COVID-19
CPT/HCPCS: 36415; 71045; 76706; 76770; 80048; 80053; 80076; 81003; 81025; 82570; 82947; 83735; 83880; 84156; 84300; 84439; 84443; 84484; 85025; 85610; 87040; 93005; 93975; 96372; 96374; 99285; J1644; J1815; J1940; J2270; J2405; J3475; U0003

== ENCOUNTER 2021-11-05 05:44 | Emergency (ER) | payer OTHER ==
--- OUTSIDE RECORDS SUMMARY | 2021-11-05 05:48 | XMS REPORT | Continuity of Care Document ---
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 9.4 mg/dL 8.6-10.6 7868791401) T PROTEIN (test code = 7.4 g/dL 6.3-8.2 7094652913) ALBUMIN (test code = 3.9 g/dL 3.5-5.0 9325136299) ALK PHOS (test code = 86 U/L 34-122 0121171266) ALTv (test code = 15 U/L 5-35 1742-6) AST(SGOT) (test code = 24 U/L 13-40 7886497895) eGFR (test code = mL/min/1.73m2 9614229787) MARIA LUISA (test code = MARIA LUISA) Association of Glomerular Filtration Rate (GFR) and Staging of Kidney Disease* + --+ --+ ------+| GFR (mL/min/1.73 m2) ?| With Kidney Damage ?| ?Without Kidney Damage+ --------+ --------+ +| ?>90 ?| ?Stage one ?| ? Normal ?+ ---+ ---+ -------+| ?60-89 ?| ?Stage two ?| ? Decreased GFR ? + --+ --+ ------+| ?30-59 ?| ?Stage three ?| ? Stage three ? + --+ --+ ------+| ?15-29 ?| ?Stage four ? | ? Stage four ?+ ---+ ---+ -------+| ?<15 (or dialysis) ? ?| ?Stage five ? | ? Stage five ?+ ---+ ---+ -------+ *Each stage assumes the associated GFR level has been in effect for at least three months. ?Stages 1 to 5, with or without kidney disease, indicate chronic kidney disease. Notes: Determination of stages one and two (with eGFR >59mL/min/1.73 m2) requires estimation of kidney damage for at least three months as defined by structural or functional abnormalities of the kidney, manifested by either:Pathological abnormalities or Markers of kidney damage (including abnormalities in the composition of the blood or urine or abnormalities in imaging tests). Lab Interpretation Abnormal (test code = 31727-9) [facility], [id number] 07:44:03 Test Item Value Reference Range Interpretation Comments PREG SERUM (test code Negative = [id number]) MARIA LUISA (test code = MARIA LUISA) Less than 10 IU/L. ?If low titer or ectopic is suspected, resubmit specimen in 48-72 hours. [facility]
[2021-11-05 08:39] LABS: SARS-COV-2 RT PCR NEGATIVE (NEGATIVE)
--- NOTE | 2021-11-05 08:44 | RAD REPORT ---
EXAM DESCRIPTION: RAD - Chest Single View - 11/05/2021 8:17 am CLINICAL HISTORY: SOB;Cough COMPARISON: Chest Single View dated 12/17/2020; Chest Pa And Lat (2 Views) dated 11/16/2016; CHEST PA AND LAT 2 VIEW dated 10/07/2015; CHEST PA AND LAT 2 VIEW dated 09/24/2013 FINDINGS: Lines: None. Lungs: Hazy opacities with prominence of the pulmonary interstitium. Pleural: No significant pleural effusions or pneumothorax. Cardiac: Moderate to severe cardiomegaly. Bones: No acute fractures. Other: IMPRESSION: Mild edema is suspected. Moderate to severe cardiomegaly.
[2021-11-05 09:50] LABS: Absolute Lymphocytes (CBC) 2.4 K/uL (0.7-4.9); Hematocrit 28.7 % (36.0-45.0); Lymphocytes % 20.5 % (15.3-44.8); RBC Red Blood Cell Count 3.25 M/uL (3.86-4.86)
[2021-11-05 09:54] LABS: Protime INR 1.09
[2021-11-05 10:10] LABS: ALT/SGPT 17 U/L (12-78); AST/SGOT 16 U/L (15-37); Albumin 2.8 g/dL (3.4-5.0); Alkaline Phosphatase 85 U/L (45-117); BUN Blood Urea Nitrogen 37 mg/dL (7-18); Bicarbonate 24 mmol/L (21-32); Bilirubin Direct < 0.1 mg/dL (0-0.2); Bilirubin Total 0.2 mg/dL (0.2-1.0); Glucose Level 226 mg/dL (74-106); NT PRO-BNP 1055 pg/mL (<125); Potassium 3.9 mmol/L (3.5-5.1); Protein, Total 8.3 g/dL (6.4-8.2); Sodium Level 138 mmol/L (136-145); Troponin (Emerg Dept Use Only) < 0.02 ng/mL (0.0-0.045)
[2021-11-05 10:14] LABS: Magnesium 1.4 mg/dL (1.8-2.4)
[2021-11-05] MEDS ORDERED: IPRATROPIUM BROM 0.5MG/2.5ML ONE (11:36)
[2021-11-05] MEDS ORDERED: LEVALBUTEROL 1.25 MG/3 ML NEB ONE (11:36)
[2021-11-05] MEDS ORDERED: MAGNESIUM SULFATE 1 gm IVPB 1 GM/100 ML BAG IV ONE (11:36)
--- NOTE | 2021-11-05 13:08 | ER ---
Nurse's Notes [facility] Name: Mireille Donovan Age: 41 yrs Sex: Female : 1980 Arrival Date: 11/05/2021 Time: 05:47 Bed 17 Private MD: Diagnosis: Mild intermittent asthma;Congestive heart failure: Chronic Presentation: 11/05 07:17 Chief complaint: Patient states: coughing and wheezing for over a week, denies fever or iw chills, productive cough , no known exposure to COVID. Coronavirus screen: Client presents with at least one sign or symptom that may indicate coronavirus-19. Ebola Screen: Patient negative for fever greater than or equal to 101.5 degrees Fahrenheit, and additional compatible Ebola Virus Disease symptoms Patient denies exposure to infectious person. Patient denies travel to an Ebola-affected area in the 21 days before illness onset. No symptoms or risks identified at this time. Initial Sepsis Screen: Does the patient meet any 2 criteria? No. Patient's initial sepsis screen is negative. Does the patient have a suspected source of infection? No. Patient's initial sepsis screen is negative. Risk Assessment: Do you want to hurt yourself or someone else? Patient reports no desire to harm self or others. Onset of symptoms was October 28, 2021. 07:17 Method Of Arrival: Ambulatory iw 07:17 Acuity: NICOLE 3 iw Triage Assessment: 12:00 General: Appears in no apparent distress. Respiratory: Reports shortness of breath eo2 Onset: The symptoms/episode began/occurred at an unknown time. the patient has moderate shortness of breath. 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 - Irregular menses iw Historical: - Allergies: 07:19 No Known Allergies; iw - Home Meds: 12:58 Apidra 100 unit/mL subcutaneous soln 10 unit 3 times a day if needed [Active]; aspirin eo2 325 mg Oral tab 1 tab once daily [Active]; atorvastatin 80 mg Oral tab 1 tab once daily [Active]; Bumetanide Oral [Active]; carvedilol 25 mg Oral tab 1 tab 2 times per day [Active]; Hydralazine Oral [Active]; hydrochlorothiazide 25 mg Oral tab 1 tab once daily [Active]; Invokana 300 mg Oral tab 1 tab once daily [Active]; Levemir 100 unit/mL subcutaneous soln 50 unit nightly [Active]; losartan 25 mg Oral tab 1 tab once daily [Active]; metformin 500 mg Oral tab 1 tab 2 times per day [Active]; montelukast 10 mg Oral tab 1 tab once daily [Active]; Nexium 40 mg Oral cpDR 1 cap once daily [Active]; sertraline 50 mg Oral tab 1 tab once daily [Active]; Spironolactone Oral [Active]; Victoza 2-Mandeep 0.6 mg/0.1 mL (18 mg/3 mL) subcutaneous pnij 1.8 mL [Active]; - PMHx: 07:19 CHF; CVA; Diabetes - IDDM; Hypertension; iw - PSHx: 07:19 section; knee; Tonsillectomy; Adenoid excision; iw - Immunization history:: Client reports receiving the 2nd dose of the Covid vaccine. - Social history:: Smoking status: Patient denies any tobacco usage or history of. Screenin:48 Abuse screen: Denies threats or abuse. Denies injuries from another. Nutritional iw screening: No deficits noted. Tuberculosis screening: No symptoms or risk factors identified. Fall Risk IV access (20 points). Assessment: 11:46 Reassessment: Patient appears in no apparent distress at this time. Patient and/or iw family updated on plan of care and expected duration. Pain level reassessed. Patient is alert, oriented x 3, equal unlabored respirations, skin warm/dry/pink. pt given breathing tx, VSS, magnesium started to RAC. 12:00 General: Appears in no apparent distress. Behavior is calm, cooperative. Pain: Denies eo2 pain. Neuro: Denies dizziness, headache. Cardiovascular: Reports hx CHF Denies chest pain. Respiratory: Reports shortness of breath cough that is Airway is patent Respiratory effort is even, unlabored, Breath sounds with wheezes bilaterally. 12:00 Cardiovascular: Rhythm is sinus rhythm. eo2 12:57 Cardiovascular:. eo2 Vital Signs: 07:20 BP 154 / 77; Pulse 81; Resp 18; Temp 97.0; Pulse Ox 99% on R/A; Weight 163.29 kg; iw Height 5 ft. 5 in. (165.10 cm); 11:47 BP 142 / 61; Pulse 74; Resp 18 S; Pulse Ox 100% on Nebulizer Mask; iw 12:00 BP 155 / 78; Pulse 74; Resp 17; Pulse Ox 100% ; Pain 0/10; eo2 13:00 BP 167 / 90; Pulse 99; Resp 18; Pulse Ox 99% ; Pain 0/10; eo2 14:00 BP 156 / 67; Pulse 81; Resp 17; Pulse Ox 100% ; Pain 0/10; eo2 07:20 Body Mass Index 59.91 (163.29 kg, 165.10 cm) iw Vitals: 12:00 Cardiac Rhythm Assessment Regular Sinus rhythm. eo2 ED Course: 05:47 Patient arrived in ED. wm 07:19 Triage completed. iw 07:20 Arm band placed on. iw 07:37 Naman Leung MD is Attending Physician. kdr 08:16 CXR XRAY In Process Unspecified. EDMS 09:30 Inserted saline lock: 20 gauge in right antecubital area, using aseptic technique. eo2 10:51 Shania Soria, OTONIEL is Primary Nurse. eo2 11:59 EKG done, by ED staff, reviewed by Naman Leung MD. dh3 12:00 Patient has correct armband on for positive identification. eo2 12:00 No provider procedures requiring assistance completed. eo2 14:09 IV discontinued. eo2 Administered Medications: 11:46 Not Given (Physician Discretion): Albuterol - atroVENT (ipratropium) (3:1) (2.5 mg - iw 0.5 mg) 3 ml Nebulizer once 11:46 Drug: Magnesium Sulfate 1 grams Route: IVPB; Infused Over: 1 hrs; Site: right iw antecubital; 12:45 Follow up: Response: No adverse reaction; IV Status: Completed infusion; IV Intake: eo2 100ml 11:46 Drug: Xopenex (levalbuterol) (3) 1.25 mg Route: Inhalation; iw 12:30 Follow up: Response: No adverse reaction; Wheezing diminished eo2 Intake: 12:45 IV: 100ml; Total: 100ml. eo2 Outcome: 13:07 Discharge ordered by . kdr 14:09 Discharged to home eo2 14:09 Condition: stable 14:09 Discharge instructions given to patient, Instructed on discharge instructions, follow up and referral plans. Demonstrated understanding of instructions, follow-up care. 14:10 Patient left the ED. eo2 Signatures: Dispatcher [employer] EDMS Naman Leung MD MD [facility] Leeann Tate RN RN Naheed Alegria formerly [facility] Tati Romano Shania Soria RN RN eo2 Corrections: (The following items were deleted from the chart) 14:02 12:00 Respiratory: Airway is patent Respiratory effort is even, unlabored, Breath eo2 sounds with wheezes bilaterally. eo2
--- NOTE | 2021-11-05 13:09 | EDPHYS ---
Physician Documentation [facility] Name: Mireille Donovan Age: 41 yrs Sex: Female : 1980 Arrival Date: 11/05/2021 Time: 05:47 Bed 17 Private MD: ED Physician Naman Leung HPI: 11/05 09:01 This 41 yrs old Black Female presents to ER via Ambulatory with complaints of Cough, kdr Wheezing > 1 Year. 09:01 The patient or guardian reports airway noise, cough, that is intermittent, described as kdr moderate, with no sputum, difficulty breathing. Onset: The symptoms/episode began/occurred gradually, 1 week(s) ago. Severity of symptoms: At their worst the symptoms were mild, moderate, in the emergency department the symptoms are unchanged. Associated signs and symptoms: The patient has no apparent associated signs or symptoms. The patient has experienced similar episodes in the past, multiple times. The patient has not recently seen a physician. Patient states she has had increasing shortness of breath over the last week. She has a history of CHF. She also has history of asthma. 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 iw Historical: - Allergies: 07:19 No Known Allergies; iw - Home Meds: 12:58 Apidra 100 unit/mL subcutaneous soln 10 unit 3 times a day if needed [Active]; aspirin eo2 325 mg Oral tab 1 tab once daily [Active]; atorvastatin 80 mg Oral tab 1 tab once daily [Active]; Bumetanide Oral [Active]; carvedilol 25 mg Oral tab 1 tab 2 times per day [Active]; Hydralazine Oral [Active]; hydrochlorothiazide 25 mg Oral tab 1 tab once daily [Active]; Invokana 300 mg Oral tab 1 tab once daily [Active]; Levemir 100 unit/mL subcutaneous soln 50 unit nightly [Active]; losartan 25 mg Oral tab 1 tab once daily [Active]; metformin 500 mg Oral tab 1 tab 2 times per day [Active]; montelukast 10 mg Oral tab 1 tab once daily [Active]; Nexium 40 mg Oral cpDR 1 cap once daily [Active]; sertraline 50 mg Oral tab 1 tab once daily [Active]; Spironolactone Oral [Active]; Victoza 2-Mandeep 0.6 mg/0.1 mL (18 mg/3 mL) subcutaneous pnij 1.8 mL [Active]; - PMHx: 07:19 CHF; CVA; Diabetes - IDDM; Hypertension; iw - PSHx: 07:19 section; knee; Tonsillectomy; Adenoid excision; iw - Immunization history:: Client reports receiving the 2nd dose of the Covid vaccine. - Social history:: Smoking status: Patient denies any tobacco usage or history of. ROS: 09:01 Constitutional: Negative for fever, chills, and weight loss, Eyes: Negative for injury, kdr pain, redness, and discharge, Neck: Negative for injury, pain, and swelling, Cardiovascular: Negative for chest pain, palpitations, and edema, Abdomen/GI: Negative for abdominal pain, nausea, vomiting, diarrhea, and constipation, Back: Negative for injury and pain, : Negative for injury, bleeding, discharge, and swelling, MS/Extremity: Negative for injury and deformity, Skin: Negative for injury, rash, and discoloration, Neuro: Negative for headache, weakness, numbness, tingling, and seizure activity. Psych: Negative for depression, anxiety, suicide ideation, homicidal ideation, and hallucinations, Allergy/Immunology: Negative for hives, rash, and allergies, Endocrine: Negative for neck swelling, polydipsia, polyuria, polyphagia, and marked weight changes, Hematologic/Lymphatic: Negative for swollen nodes, abnormal bleeding, and unusual bruising. 09:01 Respiratory: Positive for cough, with no reported sputum, dyspnea on exertion, shortness of breath, wheezing, Negative for orthopnea, pleurisy. Exam: 09:01 Constitutional: This is a well developed, well nourished obese patient who is awake, kdr alert, and in no acute distress. Head/Face: Normocephalic, atraumatic. Eyes: Pupils equal round and reactive to light, extra-ocular motions intact. Lids and lashes normal. Conjunctiva and sclera are non-icteric and not injected. Cornea within normal limits. Periorbital areas with no swelling, redness, or edema. Neck: Trachea midline, no thyromegaly or masses palpated, and no cervical lymphadenopathy. Supple, full range of motion without nuchal rigidity, or vertebral point tenderness. No Meningismus. Chest/axilla: Normal chest wall appearance and motion. Nontender with no deformity. No lesions are appreciated. Cardiovascular: Regular rate and rhythm with a normal S1 and S2. No gallops, murmurs, or rubs. Normal PMI, no JVD. No pulse deficits. Abdomen/GI: Soft, non-tender, with normal bowel sounds. No distension or tympany. No guarding or rebound. No evidence of tenderness throughout. Back: No spinal tenderness. No costovertebral tenderness. Full range of motion. Skin: Warm, dry with normal turgor. Normal color with no rashes, no lesions, and no evidence of cellulitis. MS/ Extremity: Pulses equal, no cyanosis. Neurovascular intact. Full, normal range of motion. Neuro: Awake and alert, GCS 15, oriented to person, place, time, and situation. Cranial nerves II-XII grossly intact. Motor strength 5/5 in all extremities. Sensory grossly intact. Cerebellar exam normal. Normal gait. Psych: Awake, alert, with orientation to person, place and time. Behavior, mood, and affect are within normal limits. 09:01 Respiratory: the patient does not display signs of respiratory distress, Respirations: normal, Breath sounds: wheezing: that is mild, is heard diffusely. 12:15 ECG was reviewed by the Attending Physician. kdr Vital Signs: 07:20 BP 154 / 77; Pulse 81; Resp 18; Temp 97.0; Pulse Ox 99% on R/A; Weight 163.29 kg; iw Height 5 ft. 5 in. (165.10 cm); 11:47 BP 142 / 61; Pulse 74; Resp 18 S; Pulse Ox 100% on Nebulizer Mask; iw 12:00 BP 155 / 78; Pulse 74; Resp 17; Pulse Ox 100% ; Pain 0/10; eo2 13:00 BP 167 / 90; Pulse 99; Resp 18; Pulse Ox 99% ; Pain 0/10; eo2 14:00 BP 156 / 67; Pulse 81; Resp 17; Pulse Ox 100% ; Pain 0/10; eo2 07:20 Body Mass Index 59.91 (163.29 kg, 165.10 cm) iw MDM: 13:07 Patient medically screened. kdr 18:57 Data reviewed: vital signs, nurses notes, lab test result(s), radiologic studies. kdr Counseling: I had a detailed discussion with the patient and/or guardian regarding: the historical points, exam findings, and any diagnostic results supporting the discharge/admit diagnosis, lab results, radiology results, the need for outpatient follow up. 11/05 07:25 Order name: COVID-19/FLU A+B (Document "Date of Onset" if Symptomatic); Complete Time: iw 08:58 11/05 09:00 Order name: Basic Metabolic Panel; Complete Time: 10:56 kdr 11/05 09:00 Order name: CBC with Diff; Complete Time: 10:56 kdr 11/05 09:00 Order name: LFT's; Complete Time: 10:56 kdr 11/05 09:00 Order name: Magnesium; Complete Time: 10:56 kdr 11/05 09:00 Order name: NT PRO-BNP; Complete Time: 10:56 kdr 11/05 07:22 Order name: CXR XRAY; Complete Time: 08:58 iw 11/05 09:00 Order name: PT-INR; Complete Time: 10:56 kdr 11/05 09:00 Order name: Troponin (emerg Dept Use Only); Complete Time: 10:56 kdr 11/05 09:00 Order name: EKG; Complete Time: 09:01 kdr 02 09:00 Order name: Cardiac monitoring; Complete Time: 12:00 kdr 11/05 09:00 Order name: EKG - Nurse/Tech; Complete Time: 12:00 kdr 02 09:00 Order name: IV Saline Lock; Complete Time: 11:46 kdr 11/05 09:00 Order name: Labs collected and sent; Complete Time: 11:46 kdr 11/05 09:00 Order name: O2 Per Protocol; Complete Time: 11:46 kdr 11/05 09:00 Order name: O2 Sat Monitoring; Complete Time: 11:46 kdr EC:15 Rate is 75 beats/min. Rhythm is regular, Sinus Rhythm with No ectopy. QT interval is kdr prolonged at 442 msec. Clinical impression: NSR w/ Non-specific ST/T Changes. Administered Medications: 11:46 Not Given (Physician Discretion): Albuterol - atroVENT (ipratropium) (3:1) (2.5 mg - iw 0.5 mg) 3 ml Nebulizer once 11:46 Drug: Magnesium Sulfate 1 grams Route: IVPB; Infused Over: 1 hrs; Site: right iw antecubital; 12:45 Follow up: Response: No adverse reaction; IV Status: Completed infusion; IV Intake: eo2 100ml 11:46 Drug: Xopenex (levalbuterol) (3) 1.25 mg Route: Inhalation; iw 12:30 Follow up: Response: No adverse reaction; Wheezing diminished eo2 Disposition Summary: 11/05/21 13:07 Discharge Ordered Location: Home kdr Problem: an acute exacerbation kdr Symptoms: have improved kdr Condition: Stable kdr Diagnosis - Mild intermittent asthma kdr - Congestive heart failure: Chronic kdr Followup: kdr - With: Private Physician - When: 2 - 3 days - Reason: If symptoms return, Further diagnostic work-up, Recheck today's complaints, Continuance of care, Re-evaluation by your physician Discharge Instructions: - Discharge Summary Sheet kdr - Asthma, Adult kdr - Asthma, Adult, [id number] kdr - Heart Failure, Diagnosis, [id number] kdr - Asthma Attack Prevention, Adult kdr - Heart Failure Exacerbation kdr - Heart Failure Eating Plan kdr Forms: - Medication Reconciliation Form kdr - Thank You Letter kdr Signatures: Dispatcher [employer] Naman García MD MD kdr Leeann Tate RN RN iw Shania Soria RN RN eo2
[2021-11-05 14:32] VITALS: TEMP 97
[2021-11-05 14:38] VITALS: BP 156/67; O2SAT 100
== END 2021-11-05 14:10 | disposition home or self-care (01) ==
LOC: ER 05:44
DX: J45.20 Mild intermittent asthma, uncomplicated (principal); I50.9 Heart failure, unspecified; Z20.822 Contact with and (suspected) exposure to COVID-19; I10 Essential (primary) hypertension; Z79.4 Long term (current) use of insulin
CPT/HCPCS: 96365; 93005; 85025; 80048; 36415; 83735; 85610; 80076; 84484; 83880; 0240U; 71045; 99285; J3475

== ENCOUNTER 2022-04-10 06:21 | Inpatient (IN) | payer OTHER ==
--- OUTSIDE RECORDS SUMMARY | 2022-04-10 06:25 | XMS REPORT | Continuity of Care Document ---
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 done at (test code = INDEX CLEAR GREENACRES HUGO ONAL HCVAB) [facility] [address] [place] [address] [id number] COMPLEMENT [id number] 13:20:00 Test Item Value Reference Range Interpretation Comments COMPLEMENT C3 (test 147 mg/dL 82-167 Performe d At: HD code = COMC3) [facility] n7207 [place], [place] [id number] Kyle L MD [phone] COMPLEMENT [id number] 13:20:00 Test Item Value Reference Range Interpretation Comments COMPLEMENT C4 (test code = COMC4) 44 mg/dL 12-38 H [id number] 14:35:00 Test Item Value Reference Range Interpretation Comments GLUBED (test code = GLUBED) 131 mg/dL 70-110 H AB HEPATITIS [id number] 15:30:00 Test Item Value Reference Range Interpretation Comments AB HEPATITIS C (test code NON REACTIVE INDEX NON REACT. = HCVAB) HIV 12 AB [id number] 11:13:00 Test Item Value Reference Range Interpretation Comments AB HIV 1 2 (test code = NON REACTIVE NONREACTIVE [id number]) AG HIV1 P24 (test code = NEGATIVE NEGATIVE [id number]) FE W/TOTAL IRON BINDING CAP.2021-11-16 08:38:00 Test Item Value Reference Range Interpretation Comments SERUM IRON (test 27 mcg/dl 35.0-150.0 L Patients tr eated with code = IRON) metal-binding d rugs such asdeferoxamine may have depressed iron values due to ironchel ation. Clinical impact would be mitigated byconsideration of clinical sympto ms. TOTAL IRON BINDING 245 mcg/dl 260.0-445.0 L Result is in microgram CAPACITY (test code per deci liter = TIBC) IRON SATURATION 11 % 15-50 L (test code = FESAT) [id number] 08:38:00 Test Item Value Reference Range Interpretation Comments FERRITIN (test code = KARI) 112 ng/mL 11.0-306.8 N CBC W/AUTO [id number] 07:24:00 Test Item Value Reference Range Interpretation Comments WHITE BLOOD CELL (test code = 14.9 K/mm3 4.5-11.0 H WBC) RED BLOOD CELL (test code = 2.83 M/mm3 3.80-5.20 L RBC) HEMOGLOBIN (test code = HGB) 8.0 gm/dL 12.0-16.0 L HEMATOCRIT (test code = HCT) 25.8 % 36.0-48.0 L MEAN CELL VOLUME (test code = 91.2 UM3 82.0-99.0 N MCV) MEAN CELL HGB (test code = MCH) 28.3 UUG 25.5-32.5 N MEAN CELL HGB CONCETRATION 31.0 gm/dL 29.0-35.5 N (test code = MCHC) RED CELL DISTRIBUTION WIDTH 13.3 % 11.5-15.0 N (test code = RDW) RED CELL DISTRIBUTION WIDTH SD 43.8 fL 34.8-50.2 N (test code = RDW-SD) PLATELET COUNT (test code = 385 K/mm3 150-400 N PLT) MEAN PLATELET VOLUME (test code 9.9 fl 7.4-10.4 N = MPV) NEUTROPHIL % (test code = NT%) 65.5 % 49.0-76.0 N IMMATURE GRANULOCYTE % (test 0.6 % 0.0-0.4 H code = IG%) LYMPHOCYTE % (test code = LY%) 24.6 % 23.0-38.0 N MONOCYTE % (test code = MO%) 8.1 % 1.0-10.0 N EOSINOPHIL % (test code = EO%) 0.9 % 1.0-5.0 L BASOPHIL % (test code = BA%) 0.3 % 0.0-1.0 N NUCLEATED RBC % (test code = 0.0 % 0.0-0.1 N NRBC%) NEUTROPHIL # (test code = NT#) 9.7 K/mm3 2.4-6.3 H IMMATURE GRANULOCYTE # (test 0.09 x10 3/uL 0.00-0.07 H code = IG#) LYMPHOCYTE # (test code = LY#) 3.7 K/mm3 1.2-4.0 N MONOCYTE # (test code = MO#) 1.2 K/mm3 0.0-0.6 H EOSINOPHIL # (test code = EO#) 0.1 K/MM3 0.0-0.7 N BASOPHIL # (test code = BA#) 0.0 K/mm3 0.0-0.2 N NUCLEATED RBC # (test code = 0.00 X10 3uL 0.00-0.01 N NRBC#) BASIC METABOLIC [id number] 06:37:00 Test Item Value Reference Range Interpretation Comments SODIUM (test code = NA) 139 mmol/l 134.0-147.0 N POTASSIUM (test code = K) 4.1 mmol/L 3.6-5.2 N CHLORIDE (test code = CL) 106 mmol/l 98.0-107.0 N CARBON DIOXIDE (test code = CO2) 23.4 mmol/l 21.0-33.0 N ANION GAP (test code = GAP) 13.7 0-20 N GLUCOSE (test code = GLU) 184 mg/dl 70.0-110.0 H BLOOD UREA NITROGEN (test code = 65 mg/dl 7.0-18.0 H BUN) CREATININE (test code = CREAT) 2.41 mg/dL 0.60-1.30 H GFR NON BLACK (test code = 24 mL/min 95-105 L GFRNONBLACK) GFR BLACK (test code = GFRBLACK) 28 mL/min 115-127 L CALCIUM (test code = CA) 8.0 mg/dl 8.0-10.5 N [id number] 04:49:00 Test Item Value Reference Range Interpretation Comments GLUBED (test code = GLUBED) 172 mg/dL 70-110 H [id number] 20:48:00 Test Item Value Reference Range Interpretation Comments GLUBED (test code = GLUBED) 185 mg/dL 70-110 H [id number] 15:56:00 Test Item Value Reference Range Interpretation Comments HGBA1C% (test code = HGBA1C%) 10.5 %A1C 4.8-6.0 H ESTIMATED AVERAGE GLUCOSE (test 255 MG/DL code = EAG) ADD ONSpecimen comments: off blood in labBASIC METABOLIC [id number] 15:35:00 Test Item Value Reference Range Interpretation Comments SODIUM (test code = NA) 139 mmol/l 134.0-147.0 N POTASSIUM (test code = K) 4.1 mmol/L 3.6-5.2 N CHLORIDE (test code = CL) 103 mmol/l 98.0-107.0 N CARBON DIOXIDE (test code = CO2) 21.9 mmol/l 21.0-33.0 N ANION GAP (test code = GAP) 18.2 0-20 N GLUCOSE (test code = GLU) 193 mg/dl 70.0-110.0 H BLOOD UREA NITROGEN (test code = 67 mg/dl 7.0-18.0 H BUN) CREATININE (test code = CREAT) 2.49 mg/dL 0.60-1.30 H GFR NON BLACK (test code = 23 mL/min 95-105 L GFRNONBLACK) GFR BLACK (test code = GFRBLACK) 27 mL/min 115-127 L CALCIUM (test code = CA) 7.8 mg/dl 8.0-10.5 L H/S PER KNLIPID PROFILE (CORONARY RISK)2021-11-15 15:26:00 Test Item Value Reference Range Interpretation Comments TRIGLYCERIDES (test code = TRIG) 220 mg/dl 40.0-150.0 H CHOLESTEROL (test code = CHOL) 175 mg/dl 0.0-200.0 N CHOLESTEROL/HDL RATIO (test code = 5.5 RATIO CHOLHDL) HDL CHOLESTEROL (test code = HDL) 32 mg/dl 30.0-60.0 N LIPOPROTEIN LDL (test code = LDL) 87 mg/dl 70-130 N H/S PT. E.LAB.KN 11/15/21 0730.[id number] 10:27:00 Test Item Value Reference Range Interpretation Comments GLUBED (test code = GLUBED) 218 mg/dL 70-110 H [id number] 06:55:00 Test Item Value Reference Range Interpretation Comments GLUBED (test code = GLUBED) 173 mg/dL 70-110 H [id number] 20:38:00 Test Item Value Reference Range Interpretation Comments GLUBED (test code = GLUBED) 297 mg/dL 70-110 H [id number] 16:15:00 Test Item Value Reference Range Interpretation Comments GLUBED (test code = GLUBED) 244 mg/dL 70-110 H [id number] 11:37:00 Test Item Value Reference Range Interpretation Comments GLUBED (test code = GLUBED) 241 mg/dL 70-110 H - US RETRO [id number] 09:56:00 [facility] JOYEduCECILIA RODAS : 1980 Sex: F FAX: Brandee Montgomery MD [phone] [place]: St: [facility] FAX: Ange Hamilton [phone] Name: CAYETANO JOY [facility] : 1980 Age/S: 41/F [address] [facility] Unit #: [id number] Loc: [address] Phys: [place] [address] Acct: [id number] Dis Date: Status: ADM IN PHONE #: [phone] Exam Date: 11/14/2021926 FAX #: [phone]: arf EXAMS: CPT CODE: [id number] US RETRO LTD 03112 EXAMINATION: - US RETRO LTD. LOCATION: B2. HISTORY: arf. COMPARISON: None. TECHNIQUE: Routine renal ultrasound was performed. FINDINGS: The kidneys are normal in size. The right kidney measures 12.8 cm, and the left kidney measures 13.0 cm in length. Cortical echogenicity is within normal limits. There is no evidence of renal mass, hydronephrosis or urolithiasis. The urinary bladder is partially distended. IMPRESSION: Normal sonographic appearance of the kidneys. at 0956 Reported and signed by: Melinda Baum M.D. CC: Brandee Zaldivar MD; Marilu Tracy MD Technologist: JUNE FLETCHER Trnscrd Date/Time/By: 11/14/2021 (0956) : By: [email or web address] PAGE 1 Signed Report FAX: Brandee Montgomery MD [phone] [place]: St: ADM FAX: Ange Salazar [phone] Name: CAYETANO JOY [facility] : 1980 Age/S: 41/F [address] [facility] Unit #: [id number] Loc: [address] [place] [address] Phys: [place] [address] Acct: [id number] Dis Date: Status: ADM IN PHONE #: [phone] Exam Date: 11/14/2021926 FAX #: [phone] Caitlin son: arf EXAMS: CPT CODE: [id number] RETRO LTD 98564 <Continued> Orig Print D/T: S: 11/14/2021 (0959) PAGE 2 Signed ReportBASIC METABOLIC [id number] 09:12:00 Test Item Value Reference Range Interpretation Comments SODIUM (test code = NA) 137 mmol/l 134.0-147.0 N POTASSIUM (test code = K) 3.7 mmol/L 3.6-5.2 N CHLORIDE (test code = CL) 101 mmol/l 98.0-107.0 N CARBON DIOXIDE (test code = CO2) 24.9 mmol/l 21.0-33.0 N ANION GAP (test code = GAP) 14.8 0-20 N GLUCOSE (test code = GLU) 266 mg/dl 70.0-110.0 H BLOOD UREA NITROGEN (test code = 67 mg/dl 7.0-18.0 H BUN) CREATININE (test code = CREAT) 2.96 mg/dL 0.60-1.30 H GFR NON BLACK (test code = 19 mL/min 95-105 L GFRNONBLACK) GFR BLACK (test code = GFRBLACK) 22 mL/min 115-127 L CALCIUM (test code = CA) 8.1 mg/dl 8.0-10.5 N CBC W/AUTO [id number] 08:55:00 Test Item Value Reference Range Interpretation Comments WHITE BLOOD CELL (test code = 16.6 K/mm3 4.5-11.0 H WBC) RED BLOOD CELL (test code = 3.13 M/mm3 3.80-5.20 L RBC) HEMOGLOBIN (test code = HGB) 9.1 gm/dL 12.0-16.0 L HEMATOCRIT (test code = HCT) 28.9 % 36.0-48.0 L MEAN CELL VOLUME (test code = 92.3 UM3 82.0-99.0 MCV) MEAN CELL HGB (test code = MCH) 29.1 UUG 25.5-32.5 N MEAN CELL HGB CONCETRATION 31.5 gm/dL 29.0-35.5 N (test code = MCHC) RED CELL DISTRIBUTION WIDTH 13.1 % 11.5-15.0 N (test code = RDW) RED CELL DISTRIBUTION WIDTH SD 43.8 fL 34.8-50.2 N (test code = RDW-SD) PLATELET COUNT (test code = 407 K/mm3 150-400 H PLT) MEAN PLATELET VOLUME (test code 9.2 fl 7.4-10.4 N = MPV) NEUTROPHIL % (test code = NT%) 65.3 % 49.0-76.0 N IMMATURE GRANULOCYTE % (test 0.6 % 0.0-0.4 H code = IG%) LYMPHOCYTE % (test code = LY%) 25.8 % 23.0-38.0 N MONOCYTE % (test code = MO%) 7.6 % 1.0-10.0 N EOSINOPHIL % (test code = EO%) 0.4 % 1.0-5.0 L BASOPHIL % (test code = BA%) 0.3 % 0.0-1.0 N NUCLEATED RBC % (test code = 0.0 % 0.0-0.1 N NRBC%) NEUTROPHIL # (test code = NT#) 10.9 K/mm3 2.4-6.3 H IMMATURE GRANULOCYTE # (test 0.10 x10 3/uL 0.00-0.07 H code = IG#) LYMPHOCYTE # (test code = LY#) 4.3 K/mm3 1.2-4.0 H MONOCYTE # (test code = MO#) 1.3 K/mm3 0.0-0.6 H EOSINOPHIL # (test code = EO#) 0.1 K/MM3 0.0-0.7 N BASOPHIL # (test code = BA#) 0.1 K/mm3 0.0-0.2 N NUCLEATED RBC # (test code = 0.00 X10 3uL 0.00-0.01 N NRBC#) [id number] 07:33:00 Test Item Value Reference Range Interpretation Comments GLUBED (test code = GLUBED) 199 mg/dL 70-110 H [id number] 21:00:00 Test Item Value Reference Range Interpretation Comments GLUBED (test code = GLUBED) 251 mg/dL 70-110 H [id number] 16:49:00 Test Item Value Reference Range Interpretation Comments GLUBED (test code = GLUBED) 289 mg/dL 70-110 H BASIC METABOLIC [id number] 14:09:00 Test Item Value Reference Range Interpretation Comments SODIUM (test code = NA) 135 mmol/l 134.0-147.0 N POTASSIUM (test code = K) 3.9 mmol/L 3.6-5.2 N CHLORIDE (test code = CL) 99 mmol/l 98.0-107.0 N CARBON DIOXIDE (test code = CO2) 26.2 mmol/l 21.0-33.0 N ANION GAP (test code = GAP) 13.7 0-20 N GLUCOSE (test code = GLU) 349 mg/dl 70.0-110.0 H BLOOD UREA NITROGEN (test code = 58 mg/dl 7.0-18.0 H BUN) CREATININE (test code = CREAT) 2.93 mg/dL 0.60-1.30 H GFR NON BLACK (test code = 19 mL/min 95-105 L GFRNONBLACK) GFR BLACK (test code = GFRBLACK) 23 mL/min 115-127 L CALCIUM (test code = CA) 8.4 mg/dl 8.0-10.5 N HEPATIC FUNCTION PANEL [id number] 14:09:00 Test Item Value Reference Range Interpretation Comments TOTAL PROTEIN (test code = PROT) 7.9 gm/dL 6.4-8.2 N ALBUMIN (test code = ALB) 2.7 gm/dl 3.2-4.7 L BILIRUBIN TOTAL (test code = BILT) 0.3 mg/dl 0.0-1.0 N BILIRUBIN DIRECT (test code = <0.1 mg/dl 0.0-0.3 N BILD) SGOT/AST (test code = AST) 39 Units/L 15-37 H SGPT/ALT (test code = ALT) 91 Units/L 12.0-78.0 H ALKALINE PHOSPHATASE TOTAL (test 88 Units/L 50.0-136.0 N code = ALKP) B-TYPE NATRIURETIC [id number] 14:09:00 Test Item Value Reference Range Interpretation Comments B-TYPE NATRIURETIC PEPTIDE (test 291 PG/ML 5-100 H code = BNP) [id number] 14:09:00 Test Item Value Reference Range Interpretation Comments TROPONIN-I (test <0.02 NG/ML 0.00-0.06 N REFERENCE R ANGEL code = TROPI) TROPONIN I HEA LTHY INDIVIDUALS: < 0.06 ng/mL R/O ISCHE ALEXIS: 0.07 - 0.60 ng/ mL CUT-OFF RANGE F OR AMI: 0.60 - 1.5 ng/m L COVID 19 INHOUSE [id number] 13:52:00 Test Item Value Reference Range Interpretation Comments COVID 19 INHOUSE NEGATIVE NEGATIVE Negative re sults should be AG (test code = treated as p resumptive and [id number]) ifinconsistent with clinical signs and sympt oms, or necessaryfor pa tient management, donta uld be tested with an alterna tivemolecular assay. Negative results do not preclude [id number] tion and should not be u sed as the sole basis forp atient management deci sions. Negative result s should beconsidered in the context of a patient's recent exposures,histo ry, presence of clinical sig ns and symptoms consis tentwith COVID-19. CBC W/AUTO [id number] 13:33:00 Test Item Value Reference Range Interpretation Comments WHITE BLOOD CELL (test code = 18.7 K/mm3 4.5-11.0 H WBC) RED BLOOD CELL (test code = 3.55 M/mm3 3.80-5.20 L RBC) HEMOGLOBIN (test code = HGB) 10.0 gm/dL 12.0-16.0 L HEMATOCRIT (test code = HCT) 31.1 % 36.0-48.0 L MEAN CELL VOLUME (test code = 87.6 UM3 82.0-99.0 N MCV) MEAN CELL HGB (test code = MCH) 28.2 UUG 25.5-32.5 N MEAN CELL HGB CONCETRATION 32.2 gm/dL 29.0-35.5 N (test code = MCHC) RED CELL DISTRIBUTION WIDTH 12.7 % 11.5-15.0 N (test code = RDW) RED CELL DISTRIBUTION WIDTH SD 40.6 fL 34.8-50.2 N (test code = RDW-SD) PLATELET COUNT (test code = 459 K/mm3 150-400 H PLT) MEAN PLATELET VOLUME (test code 9.8 fl 7.4-10.4 N = MPV) NEUTROPHIL % (test code = NT%) 72.1 % 49.0-76.0 N IMMATURE GRANULOCYTE % (test 0.7 % 0.0-0.4 H code = IG%) LYMPHOCYTE % (test code = LY%) 19.0 % 23.0-38.0 L MONOCYTE % (test code = MO%) 7.9 % 1.0-10.0 N EOSINOPHIL % (test code = EO%) 0.1 % 1.0-5.0 L BASOPHIL % (test code = BA%) 0.2 % 0.0-1.0 N NUCLEATED RBC % (test code = 0.0 % 0.0-0.1 N NRBC%) NEUTROPHIL # (test code = NT#) 13.5 K/mm3 2.4-6.3 H IMMATURE GRANULOCYTE # (test 0.13 x10 3/uL 0.00-0.07 H code = IG#) LYMPHOCYTE # (test code = LY#) 3.6 K/mm3 1.2-4.0 N MONOCYTE # (test code = MO#) 1.5 K/mm3 0.0-0.6 H EOSINOPHIL # (test code = EO#) 0.0 K/MM3 0.0-0.7 N BASOPHIL # (test code = BA#) 0.0 K/mm3 0.0-0.2 N NUCLEATED RBC # (test code = 0.00 X10 3uL 0.00-0.01 N [facility]#) URINALYSIS [id number] 11:36:00 Test Item Value Reference Range Interpretation Comments UA COLOR (test code = YELLOW COLU) UA APPEARANCE (test code CLEAR = APPU) UA GLUCOSE DIPSTICK (test 250 mg/dl NORMAL code = DGLUU) UA BILIRUBIN DIPSTICK NEGATIVE mg/dL NEGATIVE (test code = BILU) UA KETONE DIPSTICK (test NEGATIVE mg/dl NEGATIVE code = KETU) UA SPECIFIC GRAVITY (test 1.015 1.000-1.030 code = SGU) UA BLOOD DIPSTICK (test 50 Brayan/micL Brayan/micL NEGATIVE A code = ASHA) UA PH DIPSTICK (test code 6.0 5.0-9.0 = DAVIS) UA PROTEIN DIPSTICK (test 500 mg/dl mg/dl NEGATIVE A code = PROU) UA UROBILINIOGEN DIPSTICK NORMAL mg/dl NORMAL (test code = URO) UA NITRITE DIPSTICK (test NEGATIVE NEGATIVE code = TEDDY) UA LEUKOCYTE ESTERASE NEGATIVE Yuriy/micL NEGATIVE DIPSTICK (test code = LEUU) UA WBC (test code = WBCU) 0-3 WBC/HPF NONE UA RBC (test code = RBCU) 5-10 RBC/HPF 0-3 A UA EPITHELIAL CELLS (test 0-3 EPI/HPF 0-3 code = EPIU) UA BACTERIA (test code = TRACE NONE BACU) UR HCG [id number] 11:36:00 Test Item Value Reference Range Interpretation Comments UR HCG QUAL (test code = HCGQLU) NEGATIVE NEGATIVE DRUGS OF ABUSE SCREEN [id number] 11:36:00 Test Item Value Reference Range Interpretation Comments URN COCAINE (test code NEGATIVE NEGATIVE Cocai ne cut-off = COCAURN) concentration: 300 ng/mL URN CANNABINOIDS (test NEGATIVE NEGATIVE Canna binoids cut-off code = CANNABURN) concentrat ion: 50 ng/mL URN AMPHETAMINE (test NEGATIVE NEGATIVE Amphet amine cut-off code = AMPHETURN) concentrat ion: 1000 ng/mL URN BARBITURATE (test NEGATIVE NEGATIVE Barbit urate cut-off code = BARBITURN) concentrat ion: 200 ng/mL URN BENZODIAZEPINE NEGATIVE NEGATIVE Benzodiaz epine cut-off (test code = BENZOURN) selina ntration: 200 ng/mL URN OPIATES (test code NEGATIVE NEGATIVE Opiat es cut-off = OPIATURN) concentration: 2000 ng/mL URN PHENCYCLIDINE (PCP) NEGATIVE NEGATIVE Phen cyclidine(PCP) (test code = PHENCURN) cut-o ff concentration: 25 ng/ml URN METHADONE (test NEGATIVE NEGATIVE Methadon e cut-off code = METHAURN) concentrati on: 300 ng/mL - CT HEAD/BRAIN W/O [id number] 11:27:00 [facility] : 1980 Sex: F FAX: Luis Cornelius [phone] [place]: St: PRE FAX: Ana Paula Carmona MD [phone] Name: QASIM JOY [facility] : 1980 Age/S: 41/F [address] [facility] Unit: [id number] Loc: [address] Phys: Luis Cornelius [address] Acct: [id number] Dis Date: Status: PRE ER PHONE #: [phone] Exam Date: 11/13/2021 1116 FAX #: [phone] Reason: w eakness, syncope EXAMS: CPT CODE: [id number] CT HEAD/BRAIN W/O CONT [id number] Dictation location: H37. CT HEAD WITHOUT CONTRAST. HISTORY: weakness, syncope COMPARISON: No comparison is available. TECHNIQUE: Axial CT images of the head were obtained with coronal and/or sagittal reformatted views. Automated exposure contro l, iterative reconstruction technique, and/or adjustment of mA and/or kV according to patient's size was utilized for radiation dose reduction. IV CONTRAST: None. FINDINGS: Small area of encephalomalacia seen along the right basal ganglia towards the posterior limb of the internal capsule. Another area of encephalomalacia seen along the right occipital parietal region also concerning for a chronic infarct. Minimal amount of periventricular and deep white matter hypodensities are seen, these are most commonly associated with chronic, microvascular ischemic changes. No other intracranial abnormalities such as hemorrhage, mass, mass effect, hydrocephalus, midline shift, extra-axial fluid collection or secondary signs of an acute infarct are noted. The calvarium and skull base are intact. The paranasal sinus and mastoid air cells are clear. IMPRESSION: No evidence of acute intracranial abnormality. 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 Correlate with comorbidities. If needed, MRI brain may be helpful for further assessment. PAGE 1 Signed Report (CONTINUED) FAX: Luis Cornelius [phone] [place]: St: PRE FAX: Karol Carmona MD [phone] Name: QASIM JOY [facility] : 1980 Age/S: 41/F [address] [facility] Unit: [id number] Loc: E.ERS[address] [place], [place] Phys: Luis Cornelius [address] Acct: [id number] Dis Date: Status: PRE ER PHONE #: [phone] Exam Date: 11/13/2021 1116 FAX #: [phone] Reason: weakness, syncope EXAMS: CPT CODE: [id number] CT HEAD/BRAIN W/O CONT [id number] <Continued> at 1127 Reported and signed by: Nazia Montano M.D. CC: Luis CINTRON; Karol Carmona MD Technologist: ELLIOT MEJIA; KIRA BOOGIE Trnscrd Dt/Tm: 11/13/2021 (1127) [email or web address] Orig Print D/T: S: 11/13/2021 (1130 PAGE 2 Signed Report- XR CHEST 1 [id number] 11:19:00 [facility] 1980 Sex: F FAX: Luis Cornelius [phone] [place]: St: PRE FAX: Fab Carmona MD [phone] Name: QASIM JOY [facility] : 1980 Age/S: 41/F [address] [facility] Unit #: [id number] Loc: [address] Phys: Luis Cornelius [id number] Acct: [id number] Dis Date: Status: PRE ER PHONE #: [phone] Exam Date: 11/13/2021 1117 FAX #: [phone] Reason: SOB EXAMS: CPT CODE: [id number] XR CHEST 1 V 86047 HISTORY: Shortness of breath Location code: B2 FINDINGS: Frontal view of thechest demonstrates a moderately enlarged cardiomediastinal silhouette, with central venous congestion and mild interstitial edema. The trachea is midline. No effusion or pneumothorax. The bones are intact. IMPRESSION: Moderate cardiomegaly and central venous congestion with mild interstitial edema. No significant effusions. Electronically Signedby Alysha Hernández on 11/13/2021 at 1119 Reported and signed by: Roverto Hernández M.D. CC: Luis CINTRON; Karol Carmona MD Technologist: MELLISSA PACHECO Trnlard Date/Time/By: 11/13/2021 (0568) : By: [email or web address] PAGE 1 Signed Report FAX: Luis Cornelius [phone] [place]: St: PRE FAX: Karol Carmona MD [phone] --- Name: QASIM JOY [facility] : 1980 Age/S: 41/F [address] [facility] Unit #: [id number] Loc: E.ERS[address] [place] [address] Phys: Luis Cornelius [id number] Acct: [id number] Dis Date: Status: PRE ER PHONE #: [phone] Exam Date: 11/13/2021 1117 FAX #: [phone] Reason: SOB EXAMS: CPT CODE: [id number] XR CHEST 1 V [id number] <Continued> Orig Print D/T: S: 11/13/2021 (1123) PAGE 2 Signed Report
[2022-04-10] MEDS ORDERED: ONDANSETRON 4 MG/2 ML VIAL ONE (07:06)
[2022-04-10] MEDS ORDERED: NA CHLORIDE 0.9% 500 ML ONE (07:06)
[2022-04-10 07:40] LABS: Absolute Lymphocytes (CBC) 1.8 K/uL (0.7-4.9); Lymphocytes % 16.4 % (15.3-44.8); MPV 8.5 fL (7.6-11.3); RBC Red Blood Cell Count 4.24 M/uL (3.86-4.86)
[2022-04-10] MEDS ORDERED: LABETALOL 20 MG/4ML SYRINGE IV ONE (07:42)
[2022-04-10 08:10] LABS: ALT/SGPT 13 U/L (12-78); AST/SGOT 17 U/L (15-37); Alkaline Phosphatase 87 U/L (45-117); BUN Blood Urea Nitrogen 45 mg/dL (7-18); Bicarbonate 20 mmol/L (21-32); Bilirubin Total 0.3 mg/dL (0.2-1.0); Glomerular Filtration Rate 30 ml/min (=/>90); Glucose Level 194 mg/dL (74-106); Lipase 153 U/L (73-393); NT PRO-BNP 3182 pg/mL (<125); Potassium 4.3 mmol/L (3.5-5.1); Protein, Total 8.4 g/dL (6.4-8.2); Sodium Level 138 mmol/L (136-145); Troponin High Sensitivity 30.9 pg/mL (<58.9)
[2022-04-10 08:11] LABS: Bilirubin Direct < 0.1 mg/dL (0-0.2)
[2022-04-10 08:16] LABS: Magnesium 1.3 mg/dL (1.8-2.4)
--- NOTE | 2022-04-10 08:29 | RAD REPORT ---
EXAM DESCRIPTION: RAD - Chest Single View - 04/10/2022 7:51 am CLINICAL HISTORY: Hypertensive COMPARISON: Portable 11/05/2021 TECHNIQUE: AP portable chest image was obtained 04/10/2022 7:51 am . FINDINGS: Lung volumes are relatively low. Large body habitus and portable technique accentuate all chest findings. No focal mass or consolidation identifiable. Interstitial pattern is similar or less prominent than t he comparison study. Cardiomegaly is present but improved. Upper lobe vasculature is mildly prominent . No measurable pleural effusion and no pneumothorax. No acute bony abnormality seen. No acute aortic findings suspected. IMPRESSION: Patient shows a minimal failure/ volume overload pattern. Findings are less prominent th an seen on the November 05 imaging.
[2022-04-10] MEDS ORDERED: MAGNESIUM OXIDE 400 MG TAB ONE (08:41)
[2022-04-10] MEDS ORDERED: MAGNESIUM SULFATE 1 gm IVPB 1 GM/100 ML BAG IV ONE ×2 (08:42→12:06)
[2022-04-10 08:49] LABS: Urine Blood 2+ (Negative); Urine Glucose Trace (Negative); Urine Protein 3+ (Negative); Urine Specific Gravity 1.025 (1.005-1.030); Urine pH 5.5 (5.0-7.0)
[2022-04-10] MEDS ORDERED: PROMETHAZINE INJ 25 MG/ML AMP ONE ×2 (09:21→11:43)
--- NOTE | 2022-04-10 10:36 | RAD REPORT ---
EXAM DESCRIPTION: CT - Abdomen Pelvis Wo Contrast - 04/10/2022 10:18 am CLINICAL HISTORY: Abdominal pain, acute, nonlocalized COMPARISON: None TECHNIQUE: Axial [address] imaging of the abdomen and pelvis was performed without IV contrast. No IV contrast was given because of allergy, abnormal renal function, patient refusal or physician re quest. No oral contrast administered. All CT scans are performed using dose optimization technique as appropriate and may include automated exposure control or mA/KV adjustment according to patient size. FINDINGS: Exam has inherent limitation due to body habitus affects. No suspicious findings in the lung bases. Heart size is prominent. No pericardial thickening or effus ion. The liver, spleen and pancreas show no suspicious findings on non-contrast imaging. Gallbladder size is normal. No evidence for gallbladder wall thickening or edema. No pericholecystic fluid. Increased density in the fundus of the gallbladder is potentially gallstones. Technical artifact due to body lomeli bitus affects would be possible as well. No biliary tree dilatation. No hydronephrosis or suspicious renal mass. No significant adrenal finding. Isodense renal masses an d pyelonephritis cannot be excluded in the absence of IV contrast. Mostly contracted urinary bladder shows no suspicious findings. Uterus and ovaries have suspicious finding as well. No dilated bowel loops or bowel wall thickening. The appendix is not well defined. No direct or indir ect appendicitis findings. No free air, free fluid or inflammatory stranding. No mass or bulky lympha denopathy. A 6 centimeter diameter fat only periumbilical hernia is present. No congestion or edema o f the herniated fat. No suspicious bony findings. Lower lumbar degenerative changes are present. There is degenerative gas in the L5-S1 disc space. IMPRESSION: Non-contrast enhanced CT abdomen and pelvis imaging show no acute or emergent finding. Slight hyperdensity in the gallbladder fundus could be technical artifact or stones. No wall thickeni ng or edema. No biliary tree abnormality. Full assessment is limited is the absence of IV contrast.
--- NOTE | 2022-04-10 11:07 | EDPHYS ---
Physician Documentation [facility] Name: Mireille Donovan Age: 42 yrs Sex: Female : 1980 Arrival Date: 04/10/2022 Time: 06:24 Bed 14 Private MD: ED Physician Nilson Porter HPI: 04/10 06:45 This 42 yrs old Black Female presents to ER via Ambulatory with complaints of Vomiting, mh7 Medication reaction. 06:45 The patient presents to the emergency department with nausea, that is moderate, mh7 vomiting, that is intermittent, 6 times since the onset of symptoms, described as clear fluid, abdominal pain, of the epigastric area, described as intermittent, vague,\\E\\ waxing and waning, and does not radiate. Onset: The symptoms/episode began/occurred last night. Possible causes: New diabetes medication. The symptoms are aggravated by nothing. The symptoms are alleviated by nothing. Associated signs and symptoms: Pertinent negatives: anorexia, belching, constipation, diarrhea, dysuria, fever, flatulence, GI bleeding, hematuria, vaginal discharge. Severity of symptoms: At their worst the symptoms were moderate last night, in the emergency department the symptoms have improved moderately. 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 - Irregular menses lg3 Historical: - Allergies: 06:36 No Known Allergies; lg3 - Home Meds: 06:36 Albuterol Inhl [Active]; Albuterol Nebulizer [Active]; atorvastatin 80 mg Oral tab 1 lg3 tab once daily [Active]; symbicort [Active]; bumetanide 2 mg oral tab 2 times per day [Active]; carvedilol 25 mg oral tab 2 tab 2 times per day [Active]; Cholecal DF oral [Active]; doxazosin 4 mg oral tab 1 tab twice a day [Active]; ezetimibe 10 mg oral tab 1 tab once daily [Active]; levothyroxine 50 mcg cap 1 cap once daily [Active]; linagliptin 5 mg oral tab 1 tab once daily [Active]; metformin 500 mg Oral tab 1 tab 2 times per day [Active]; Novolog Sub-Q [Active]; prednisone 20 mg Oral tab once daily [Active]; semaglutide inj oral [Active]; sertraline 50 mg Oral tab 1 tab once daily [Active]; spironolacton-hydrochlorothiaz 25-25 mg Oral tab 1 tab once daily [Active]; tresiba 60 units QHS [Active]; - PMHx: 06:36 CHF; CVA; Diabetes - IDDM; Hypertension; Hypothyroidism; Asthma; stroke; lg3 - PSHx: 06:36 Adenoid excision; section; knee; Tonsillectomy; lg3 - Immunization history:: Adult Immunizations up to date, Client reports receiving the 2nd dose of the Covid vaccine, moderna X3. - Social history:: Smoking status: Patient denies any tobacco usage or history of. Patient/guardian denies using alcohol, street drugs. ROS: 06:45 Constitutional: Negative for fever, chills, and weight loss, Eyes: Negative for injury, mh7 pain, redness, and discharge, ENT: Negative for injury, pain, and discharge, Neck: Negative for injury, pain, and swelling, Cardiovascular: Negative for chest pain, palpitations, and edema, Respiratory: Negative for shortness of breath, cough, wheezing, and pleuritic chest pain, Back: Negative for injury and pain, : Negative for injury, bleeding, discharge, and swelling, MS/Extremity: Negative for injury and deformity, Skin: Negative for injury, rash, and discoloration, Neuro: Negative for headache, weakness, numbness, tingling, and seizure, Psych: Negative for depression, anxiety, suicide ideation, homicidal ideation, and hallucinations, Allergy/Immunology: Negative for hives, rash, and allergies, Endocrine: Negative for neck swelling, polydipsia, polyuria, polyphagia, and marked weight changes, Hematologic/Lymphatic: Negative for swollen nodes, abnormal bleeding, and unusual bruising. Exam: 06:45 Head/Face: Normocephalic, atraumatic. Eyes: Pupils equal round and reactive to light, mh7 extra-ocular motions intact. Lids and lashes normal. Conjunctiva and sclera are non-icteric and not injected. Cornea within normal limits. Periorbital areas with no swelling, redness, or edema. Neck: Trachea midline, no thyromegaly or masses palpated, and no cervical lymphadenopathy. Supple, full range of motion without nuchal rigidity, or vertebral point tenderness. No Meningismus. Chest/axilla: Normal chest wall appearance and motion. Nontender with no deformity. No lesions are appreciated. 06:45 Respiratory: Lungs have equal breath sounds bilaterally, clear to auscultation and percussion. No rales, rhonchi or wheezes noted. No increased work of breathing, no retractions or nasal flaring. 06:45 Back: No spinal tenderness. No costovertebral tenderness. Full range of motion. Skin: Warm, dry with normal turgor. Normal color with no rashes, no lesions, and no evidence of cellulitis. MS/ Extremity: Pulses equal, no cyanosis. Neurovascular intact. Full, normal range of motion. Neuro: Awake and alert, GCS 15, oriented to person, place, time, and situation. Cranial nerves II-XII grossly intact. Motor strength 5/5 in all extremities. Sensory grossly intact. Cerebellar exam normal. Normal gait. Psych: Awake, alert, with orientation to person, place and time. Behavior, mood, and affect are within normal limits. 06:45 Constitutional: The patient appears in no acute distress, alert, awake, uncomfortable. 06:45 Cardiovascular: Rate: tachycardic, Rhythm: regular, Pulses: no pulse deficits are appreciated, Heart sounds: normal, normal S1and S2, Edema: is not appreciated, JVD: is not appreciated. 06:45 Abdomen/GI: Inspection: obese Bowel sounds: normal, in all quadrants, Palpation: nontender, in all quadrants, Indicators: McBurney's point is not tender, Franklin's sign is negative, Rovsing's sign is negative, Obturator sign is negative, Psoas sign is negative, Liver: no appreciated palpable abnormalities, Hernia: not appreciated. Vital Signs: 06:34 BP 224 / 130; Pulse 116; Resp 18 S; Temp 98.4(O); Pulse Ox 100% on R/A; Weight 163.29 lg3 kg (R); Height 5 ft. 5 in. (165.10 cm) (R); 07:00 BP 214 / 113; Pulse 112; Resp 18; Pulse Ox 100% ; Pain 3/10; jh6 07:48 BP 209 / 102; Pulse 97; Resp 18; Pulse Ox 100% ; Pain 2/10; jh6 08:30 BP 211 / 116; Pulse 92; Resp 18; Pulse Ox 100% ; Pain 0/10; jh6 09:30 BP 200 / 119; Pulse 102; Resp 18; Pulse Ox 100% ; Pain 1/10; jh6 10:30 BP 212 / 101; Pulse 102; Resp 18; Pulse Ox 100% ; Pain 2/10; jh6 11:30 BP 141 / 119; Pulse 112; Resp 18; Temp 97.8(O); Pulse Ox 98% ; Pain 0/10; jh6 12:46 BP 153 / 81; Pulse 100; Resp 17; Pulse Ox 100% ; Pain 0/10; jh6 06:34 Body Mass Index 59.91 (163.29 kg, 165.10 cm) lg3 MDM: 07:01 Patient medically screened. rn 11:04 Differential diagnosis: gastritis, viral gastroenteritis, gastroenteritis, malignant rn HTN, medication side effect, CHF. Data reviewed: vital signs, nurses notes, lab test result(s), EKG, radiologic studies, CT scan, and as a result, I will admit patient. Counseling: I had a detailed discussion with the patient and/or guardian regarding: the historical points, exam findings, and any diagnostic results supporting the discharge/admit diagnosis, lab results, radiology results, the need for further work-up and treatment in the hospital. Response to treatment: There is no appreciated change of the patient's symptoms at this time, and as a result, I will admit patient. Admission orders: after a detailed discussion of the patient's condition and case, the admit orders are written by me. ED course: Pt still not feeling much better, still nauseated and vomiting, + malignant HTN without improvement after labetalol, slight worsening in renal function, + pulmonary edema with minimal respiratory symptoms. Pt does not feel well enough to go home, will observe overnight. . 04/10 06:47 Order name: Basic Metabolic Panel; Complete Time: 08:36 04/10 06:47 Order name: CBC with Diff; Complete Time: 07:50 04/10 06:47 Order name: LFT's; Complete Time: 08:36 04/10 06:47 Order name: Magnesium; Complete Time: 08:36 04/10 06:47 Order name: NT PRO-BNP; Complete Time: 08:36 04/10 06:47 Order name: PT-INR 04/10 06:47 Order name: Troponin HS; Complete Time: 08:36 mh07 06:47 Order name: Lipase; Complete Time: 08:36 7 04/10 07:09 Order name: Glucose, Ancillary Testing; Complete Time: 07:50 EDMS 04/10 07:29 Order name: Flu; Complete Time: 08:36 rn 07 07:29 Order name: SARS-COV-2 RT PCR (Document "Date of Onset" if Symptomatic); Complete Time: rn 09:10 04/10 08:49 Order name: Urine Dipstick-Ancillary; Complete Time: 09:10 MS 04/10 08:53 Order name: Urine --Ancillary (enter results) bd 04/10 12:24 Order name: Urinalysis EDMS 04/10 06:47 Order name: XRAY Chest (1 view); Complete Time: 08:36 [facility] 04/10 10:00 Order name: CT Abd/Pelvis - Without Contrast rn 04/10 10:04 Order name: Abdomen ; Complete Time: 10:39 EDMS 04/10 12:24 Order name: Echo with Doppler [facility] 04/10 12:26 Order name: CBC with Automated Diff EDMS 04/10 12:26 Order name: CBC with Automated Diff EDMS 04/10 12:26 Order name: Comprehensive Metabolic Panel EDMS 04/10 12:26 Order name: Comprehensive Metabolic Panel [facility] 04/10 12:26 Order name: NT PRO-BNP EDMS 04/10 12:26 Order name: NT PRO-BNP EDMS 04/10 12:36 Order name: Abdomen Pelvis Scan\\E\\US EDMS 04/10 14:16 Order name: Glucose, Ancillary Testing [facility] 04/10 06:47 Order name: EKG; Complete Time: 06:48 [facility] 04/10 06:47 Order name: Cardiac monitoring; Complete Time: 06:58 [facility] 04/10 06:47 Order name: EKG - Nurse/Tech; Complete Time: 06:58 [facility] 04/10 06:47 Order name: IV Saline Lock [facility] 04/10 06:47 Order name: Labs collected and sent [facility] 04/10 06:47 Order name: O2 Per Protocol; Complete Time: 06:57 7 04/10 06:47 Order name: O2 Sat Monitoring; Complete Time: 06:57 [facility] 04/10 06:49 Order name: Accucheck Blood Glucose; Complete Time: 06:57 [facility] 04/10 12:02 Order name: CONS Physician Consult EDKS 04/10 12:24 Order name: NPO; Complete Time: 12:44 EDMS 04/10 12:24 Order name: NPO; Complete Time: 12:44 EDMS Administered Medications: 07:34 Drug: Zofran (Ondansetron) 4 mg Route: IVP; Site: right forearm; 6 07:34 Drug: NS 0.9% 500 ml Route: IV; Rate: bolus; Site: right forearm; 6 07:39 Drug: Labetalol 10 mg Route: IV; Rate: per protocol; Infused Over: 2 mins; Site: right 6 forearm; 09:18 Follow up: Response: Blood pressure is lowered [facility] 08:36 Drug: Magnesium Sulfate 1 grams Route: IVPB; Infused Over: 1 hrs; Site: right forearm; [facility] 09:18 Follow up: Response: No adverse reaction [facility] 09:18 Drug: Phenergan (promethazine) 12.5 mg Route: IVP; Site: right forearm; 6 11:16 Drug: hydrALAZINE 10 mg Route: IVP; Site: right forearm; 6 11:33 Follow up: Response: Blood pressure is lowered [facility] 11:41 Drug: Phenergan (promethazine) 12.5 mg Route: IVP; Site: left antecubital; 6 12:44 Follow up: Response: Nausea is decreased [facility] Disposition Summary: 04/10/22 11:06 Hospitalization Ordered Hospitalization Status: Observation rn Provider: Bijan Verma rn Location: Telemetry/[facility] (observation) rn Condition: Stable rn Problem: new rn Symptoms: are unchanged rn Bed/Room Type: Standard rn Room Assignment: 220(04/10/22 15:47) dw Diagnosis - Intractable vomiting rn - Malignant Hypertension rn - Acidosis rn - Unspecified combined systolic (congestive) and diastolic (congestive) heart failure rn Forms: - Medication Reconciliation Form rn - SBAR form rn Signatures: Dispatcher [facility] Laura Acuña RN RN dw Nieto, Roman, MD MD rn Gibson, Lacie, RN RN 3 Aj Quan MD MD [facility] Maday Kidd RN RN 6 Corrections: (The following items were deleted from the chart) 12:36 12:33 Renal Ultrasound-Complete ordered. EDMS EDMS 15:47 11:06 rn dw
--- NOTE | 2022-04-10 11:07 | ER ---
Nurse's Notes [facility] Name: Mireille Donovan Age: 42 yrs Sex: Female : 1980 Arrival Date: 04/10/2022 Time: 06:24 Bed 14 Private MD: Diagnosis: Intractable vomiting;Malignant Hypertension;Acidosis;Unspecified combined systolic (congestive) and diastolic (congestive) heart failure Presentation: 04/10 06:34 Chief complaint: Patient states: i took 2 units of ozempic for the first time and about lg3 an hour later i began vomiting and have not stopped. i took it around 2000 last night. Coronavirus screen: Client denies travel out of the [place] in the last 14 days. At this time, the client does not indicate any symptoms associated with coronavirus-19. Ebola Screen: No symptoms or risks identified at this time. Initial Sepsis Screen: Does the patient meet any 2 criteria? No. Patient's initial sepsis screen is negative. Does the patient have a suspected source of infection? No. Patient's initial sepsis screen is negative. Risk Assessment: Do you want to hurt yourself or someone else? Patient reports no desire to harm self or others. Onset of symptoms was April 09, 2022. 06:34 Method Of Arrival: Ambulatory lg3 06:34 Acuity: NICOLE 3 lg3 Triage Assessment: 06:36 General: Appears in no apparent distress. uncomfortable, Behavior is calm, cooperative. lg3 Pain: Denies pain. EENT: No deficits noted. No signs and/or symptoms were reported regarding the EENT system. Neuro: No deficits noted. Iglesias Agitation-Sedation Scale (RASS): 0 - Alert and Calm Level of Consciousness is awake, alert, obeys commands, Oriented to person, place, time, situation. Cardiovascular: No deficits noted. Denies chest pain, Capillary refill < 3 seconds Clubbing of nail beds is absent JVD is absent Patient's skin is warm and dry. Cardiovascular: Respiratory: No deficits noted. Airway is patent Trachea midline Respiratory effort is even, unlabored, Respiratory pattern is regular, symmetrical. GI: Reports intolerance of fluids, intolerance of food, nausea, vomiting. : No deficits noted. No signs and/or symptoms were reported regarding the genitourinary system. Derm: No deficits noted. No signs and/or symptoms reported regarding the dermatologic system. Skin is intact, is healthy with good turgor, Skin is dry, Skin temperature is warm. Musculoskeletal: No deficits noted. No signs and/or symptoms reported regarding the musculoskeletal system. Circulation, motion, and sensation intact. Range of motion: intact in all extremities. 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 - Irregular menses lg3 Historical: - Allergies: 06:36 No Known Allergies; lg3 - Home Meds: 06:36 Albuterol Inhl [Active]; Albuterol Nebulizer [Active]; atorvastatin 80 mg Oral tab 1 lg3 tab once daily [Active]; symbicort [Active]; bumetanide 2 mg oral tab 2 times per day [Active]; carvedilol 25 mg oral tab 2 tab 2 times per day [Active]; Cholecal DF oral [Active]; doxazosin 4 mg oral tab 1 tab twice a day [Active]; ezetimibe 10 mg oral tab 1 tab once daily [Active]; levothyroxine 50 mcg cap 1 cap once daily [Active]; linagliptin 5 mg oral tab 1 tab once daily [Active]; metformin 500 mg Oral tab 1 tab 2 times per day [Active]; Novolog Sub-Q [Active]; prednisone 20 mg Oral tab once daily [Active]; semaglutide inj oral [Active]; sertraline 50 mg Oral tab 1 tab once daily [Active]; spironolacton-hydrochlorothiaz 25-25 mg Oral tab 1 tab once daily [Active]; tresiba 60 units QHS [Active]; - PMHx: 06:36 CHF; CVA; Diabetes - IDDM; Hypertension; Hypothyroidism; Asthma; stroke; lg3 - PSHx: 06:36 Adenoid excision; section; knee; Tonsillectomy; lg3 - Immunization history:: Adult Immunizations up to date, Client reports receiving the 2nd dose of the Covid vaccine, moderna X3. - Social history:: Smoking status: Patient denies any tobacco usage or history of. Patient/guardian denies using alcohol, street drugs. Screenin:50 Abuse screen: Denies threats or abuse. Denies injuries from another. Nutritional lg3 screening: No deficits noted. Tuberculosis screening: No symptoms or risk factors identified. Fall Risk None identified. Assessment: 06:51 General: see triage assessment . lg3 07:00 General: Appears in no apparent distress. comfortable. jh6 07:10 Pain: Complains of pain in epigastric area, right upper quadrant and left upper jh6 quadrant Pain currently is 2 out of 10 on a pain scale. GI: Bowel sounds present X 4 quads. Abd is soft Abd is non tender Reports nausea. 08:30 Reassessment: No changes from previously documented assessment. jh6 09:30 Reassessment: Patient and/or family updated on plan of care and expected duration. Pain jh6 level reassessed. Patient is alert, oriented x 3, equal unlabored respirations, skin warm/dry/pink. 09:30 General: pt having an episode of vomiting and er provider made aware. pt states that jh6 zofran did help for a little but started getting worse just recent. pt also states that her normal bp has been elevated for some time even with taking bp meds. reports that her normal is 200/100 range. . 10:30 Reassessment: Patient and/or family updated on plan of care and expected duration. Pain jh6 level reassessed. 10:30 General: pt able to rest after meds given and has had no further episodes of vomiting. jh6 family is at bedside. . 11:41 Reassessment: admitting provider at bedside speaking with pt, when pt became nauseated jh6 and vomited x 1. verbal order for Phenergan 12.5mg given. Pain: Denies pain. 12:46 Reassessment: Patient and/or family updated on plan of care and expected duration. Pain jh6 level reassessed. pt resting with eyes closed. nad noted and call light in reach. Patient states feeling better. Vital Signs: 06:34 BP 224 / 130; Pulse 116; Resp 18 S; Temp 98.4(O); Pulse Ox 100% on R/A; Weight 163.29 lg3 kg (R); Height 5 ft. 5 in. (165.10 cm) (R); 07:00 BP 214 / 113; Pulse 112; Resp 18; Pulse Ox 100% ; Pain 3/10; jh6 07:48 BP 209 / 102; Pulse 97; Resp 18; Pulse Ox 100% ; Pain 2/10; jh6 08:30 BP 211 / 116; Pulse 92; Resp 18; Pulse Ox 100% ; Pain 0/10; 6 09:30 BP 200 / 119; Pulse 102; Resp 18; Pulse Ox 100% ; Pain 1/10; jh6 10:30 BP 212 / 101; Pulse 102; Resp 18; Pulse Ox 100% ; Pain 2/10; jh6 11:30 BP 141 / 119; Pulse 112; Resp 18; Temp 97.8(O); Pulse Ox 98% ; Pain 0/10; jh6 12:46 BP 153 / 81; Pulse 100; Resp 17; Pulse Ox 100% ; Pain 0/10; jh6 06:34 Body Mass Index 59.91 (163.29 kg, 165.10 cm) lg3 ED Course: 06:24 Patient arrived in ED. bp1 06:29 Aj Quan MD is Attending Physician. 7 06:34 Erika Stephens, OTONIEL is Primary Nurse. lg3 06:36 Triage completed. lg3 06:36 Arm band placed on right wrist. lg3 06:51 Patient has correct armband on for positive identification. Bed in low position. Call 3 light in reach. Client placed on continuous cardiac and pulse oximetry monitoring. NIBP monitoring applied. laboratory monitor on. Door closed. Noise minimized. Warm blanket given. Family accompanied patient. 07:01 Attending Physician role handed off by Aj Quan MD rn 07:01 Nilson Porter MD is Attending Physician. rn 07:25 Inserted saline lock: 22 gauge in right forearm, using aseptic technique. [facility] 07:52 XRAY Chest (1 view) In Process Unspecified. EDMS 10:19 Abdomen In Process Unspecified. EDMS 11:05 Bijan Verma MD is Hospitalizing Provider. rn 12:44 Urinalysis Sent. [facility] Administered Medications: 07:34 Drug: Zofran (Ondansetron) 4 mg Route: IVP; Site: right forearm; 6 07:34 Drug: NS 0.9% 500 ml Route: IV; Rate: bolus; Site: right forearm; 6 07:39 Drug: Labetalol 10 mg Route: IV; Rate: per protocol; Infused Over: 2 mins; Site: right [facility] forearm; 09:18 Follow up: Response: Blood pressure is lowered [facility] 08:36 Drug: Magnesium Sulfate 1 grams Route: IVPB; Infused Over: 1 hrs; Site: right forearm; jh6 09:18 Follow up: Response: No adverse reaction [facility] 09:18 Drug: Phenergan (promethazine) 12.5 mg Route: IVP; Site: right forearm; [facility] 11:16 Drug: hydrALAZINE 10 mg Route: IVP; Site: right forearm; 6 11:33 Follow up: Response: Blood pressure is lowered [facility] 11:41 Drug: Phenergan (promethazine) 12.5 mg Route: IVP; Site: left antecubital; [facility] 12:44 Follow up: Response: Nausea is decreased [facility] Outcome: 11:06 Decision to Hospitalize by Provider. rn 15:59 Admitted to Tele accompanied by tech, via wheelchair, room 220, [address] 15:59 Condition: stable [facility] 15:59 Instructed on the need for admit, Demonstrated understanding of 16:09 Patient left the ED. [facility] Signatures: Dispatcher [employer] EDMS Nilson Porter MD MD rn Martinez, Maria 5 Erika Stephens RN RN 3 Kelly Cabello Maurice, MD MD 7 Maday Kidd RN RN 6 Corrections: (The following items were deleted from the chart) 07:09 07:08 Bed in low position. Side rails up X 1. Adult w/ patient. [place] [id number] 07:09 07:08 Client placed on continuous cardiac and pulse oximetry monitoring. NIBP [facility] monitoring applied. laboratory monitor on. [facility] 07:09 07:07 EKG done, by ED staff, reviewed by Nilson Porter MD [place] [id number]
[2022-04-10] MEDS ORDERED: HYDRALAZINE HCL 20 MG/ML VIAL ONE (11:13)
[2022-04-10] MEDS ORDERED: LABETALOL 20 MG/4ML SYRINGE IV PRN (12:10)
[2022-04-10] MEDS ORDERED: HYDROCODONE/APAP 5/325 MG TAB PO PRN (12:16)
[2022-04-10] MEDS ORDERED: PROMETHAZINE INJ 25 MG/ML AMP IV PRN (12:16)
[2022-04-10] MEDS ORDERED: ZOLPIDEM TARTRATE 5 MG TABLET PO PRN (12:18)
--- NOTE | 2022-04-10 12:36 | P.HP ---
Certification for Inpatient With expected LOS: >2 Midnights Patient will require the following post-hospital care: None Practitioner: I am a practitioner with admitting privileges, knowledge of patient current condition, hospital course, and medical plan of care. Services: Services provided to patient in accordance with Admission requirements found in Title 42 Section 412.3 of the Code of Federal Regulations Patient History Date of Service: 04/10/22 Reason for admission: Hypertensive Urgency History of Present Illness: Patient is a 42-year-old female with a past medical history significant for diabetes, hypertension, CHF, CVA, morbid obesity who presents with complaint of uncontrolled hypertension, nausea and vomiting. Patient reported that her blood sugar has been uncontrolled and has been in the 200s to 300s. Patient reported that her insulin medication was changed to Ozempic and she took 2 units around 8 PM yesterday. 1 hour later patient started having nausea and vomiting that has been ongoing since yesterday. Patient also reports that her blood pressure has been uncontrolled in the last 1 month with systolic SBP in the 200s. Patient reported that she has not been able to follow-up with her PCP due to insurance issues. Patient reports associated signs and symptoms of chills, shortness of breath with exertion and BLE edema. Patient denies any other signs and symptoms. Symptoms are aggravated or relieved by nothing. Patient decided to present to the hospital due to worsening symptoms. Allergies No Known Allergies Allergy (Unverified 04/10/22 12:39) Home medications list reviewed: Yes Home Medications: Liraglutide [Victoza 3-Mandeep] 1.8 ml PO DAILY 11/16/16 Montelukast [Singulair*] 10 mg PO DAILY 11/16/16 Sertraline [Zoloft*] 50 mg PO BEDTIME 11/16/16 Atorvastatin Calcium [Lipitor] 80 mg PO BEDTIME #0 tab 11/18/16 Furosemide [Lasix*] 80 mg PO DAILY #30 tab 11/18/16 Hydralazine [Apresoline*] 50 mg PO TID #90 tab 11/18/16 Sacubitril/Valsartan [Entresto 49 mg-51 mg Tablet] 2 tab PO BID #120 tab 11/18/16 carvediloL [Coreg*] 25 mg PO BID 6AM 6PM tab 11/18/16 Pen Needle, Diabetic [Insulin Pen Needle] 1 dis.ndl [facility] BREAKFAST 12/17/20 Pen Needle, Diabetic [[facility] Pen Needle, Diabetic [Insulin Pen Needle] See Protocol SQ BEDTIME 12/17/20 - Past Medical/Surgical History Diabetic: Yes -: HTN -: CVA -: DM -: C SECTION -: RIGHT KNEE SURGERY - Family History Mother -: Hypertension, Diabetes Father -: Hypertension, Diabetes, Stroke - Social History Smoking Status: Never smoker Alcohol use: Yes CD- Drugs: No Caffeine use: Yes Review of Systems General: Chills Eyes: Unremarkable ENT: Unremarkable Respiratory: SOB with Excertion Cardiovascular: Edema Gastrointestinal: Nausea, Vomiting Genitourinary: Unremarkable Musculoskeletal: Unremarkable Integumentary: Unremarkable Neurological: Unremarkable Lymphatics: Unremarkable Physical Examination - Physical Exam General: Alert, Oriented x3 HEENT: PERRLA Neck: Supple, JVD not distended Respiratory: Clear to auscultation bilaterally Cardiovascular: Regular rate/rhythm, Edema (BLE edema) Capillary refill: <2 Seconds Gastrointestinal: Normal bowel sounds, Soft and benign, Non-distended Musculoskeletal: No clubbing, No erythema, No tenderness Integumentary: No rashes, No breakdown, No significant lesion Neurological: Normal gait, Normal speech, Normal tone Lymphatics: No axilla or inguinal lymphadenopathy - Studies Laboratory Data (last 24 hrs) 04/10/22 07:21: WBC 11.2 H, Hgb 12.0, Hct 38.0, Plt Count 349 04/10/22 07:21: Sodium 138, Potassium 4.3, BUN 45 H, Creatinine 2.10 H, Glucose 194 H, Magnesium 1.3 L*, Total Bilirubin 0.3, AST 17, ALT 13, Alkaline Phosphatase 87, Lipase 153 Microbiology Data (last 24 hrs): 04/10/22 07:40 Nasopharnyx Influenza Type A Antigen Screen - Final 04/10/22 07:40 Nasopharnyx Influenza Type B Antigen Screen - Final Assessment and Plan - Plan --Hypertensive urgency. Patient reports uncontrolled blood pressure in the last 1 month. Not able to follow-up with PCP due to insurance issues. Cardiology consulted. Echocardiogram pending to assess LV\valvular function and wall motion. Telemetry to monitor for any significant arrhythmia. Renal ultrasound to rule out renal artery stenosis. Continue home medications and hydralazine as needed. Will await further recommendation from manager diesel. --Nausea and vomiting. Antiemetics on board. CT abdomen worrisome for cholelithiasis. Gallbladder ultrasound pending for further evaluation. Continue supportive care. --CKD 3B. Nephrology consulted. Will await further recommendations from toe puller. --Acute on chronic systolic CHF exacerbation. Continue diuresis with Lasix. Daily weight and strict I/O. Continue home medications. Further management per manager diesel. . --History of CVA. Continue aspirin when appropriate. --HLD. Continue statin when appropriate. --Depression. Continue home medications when appropriate. --DM2. BS monitor with sliding scale insulin. --Morbid obesity. Patient counseled on weight reduction, diet and exercise therapy. --DVT prophylaxis with heparin subQ Discharge Plan: Home Plan to discharge in: 72 Hours - Advance Directives Does patient have a Living Will: No Does patient have a Durable POA for Healthcare: No - Code Status/Comfort Care Code Status Assessed: Yes Code Status: Full Code Critical Care: No
[2022-04-10] MEDS ORDERED: SODIUM CHLORIDE 0.9% 10ML INJ IV PRN (12:57)
[2022-04-10] MEDS: INSULIN -REGULAR HUMAN 50 UNIT/0.5 ML ML SQ SCH ×3 (13:00→21:37)
--- NOTE | 2022-04-10 13:24 | P.CNS ---
Date of Consult: 04/10/22 Reason for Consult: renal failure Requesting Physician: Moise Porter Chief Complaint: Hypertensive Urgency History of Present Illness: 42F w/ PMHx of Htn, HLD, DM2, morbid obesity, chronic systolic HF, CVA, & depression, who p/w 1-day hx of nausea & vomiting, referred to Nephrology for NIKOLAY. SCr was 0.9 in February 2017, then was 1.9 in Dec 2020. SCr on adm is 2.1. She has mild leukocytosis, acidosis, & hypoMg. BNP sig elevated. Has serum protein gap. Allergies No Known Allergies Allergy (Verified 04/10/22 16:48) Home Medications: Liraglutide [Victoza 3-Mandeep] 1.8 ml PO DAILY 11/16/16 Montelukast [Singulair*] 10 mg PO DAILY 11/16/16 Sertraline [Zoloft*] 50 mg PO BEDTIME 11/16/16 Atorvastatin Calcium [Lipitor] 80 mg PO BEDTIME #0 tab 11/18/16 Furosemide [Lasix*] 80 mg PO DAILY #30 tab 11/18/16 Hydralazine [Apresoline*] 50 mg PO TID #90 tab 11/18/16 Sacubitril/Valsartan [Entresto 49 mg-51 mg Tablet] 2 tab PO BID #120 tab 11/18/16 carvediloL [Coreg*] 25 mg PO BID 6AM 6PM tab 11/18/16 Pen Needle, Diabetic [Insulin Pen Needle] 1 dis.ndl [facility] BREAKFAST 12/17/20 Pen Needle, Diabetic [Insulin Pen Needle] 1 dis.ndl [facility] TID 12/17/20 Pen Needle, Diabetic [Insulin Pen Needle] See Protocol SQ BEDTIME 12/17/20 - Past Medical/Surgical History Diabetic: Yes -: HTN -: CVA -: DM -: C SECTION -: RIGHT KNEE SURGERY - Family History Mother Medical History: Hypertension, Diabetes Father Medical History: Hypertension, Diabetes, Stroke - Social History Smoking Status: Unknown if ever smoked Alcohol use: Yes CD- Drugs: No Caffeine use: Yes Review of Systems General: Weakness Eyes: Unremarkable ENT: Unremarkable Respiratory: Shortness of Breath Cardiovascular: Unremarkable Gastrointestinal: Nausea, Vomiting Genitourinary: Unremarkable Musculoskeletal: Pedal edema Integumentary: Unremarkable Neurological: Unremarkable Lymphatics: Unremarkable Physical Examination General: Other (appears as her stated age) HEENT: Atraumatic, Normocephalic Neck: Supple, JVD not distended Respiratory: Other (symmetric chest expansion) Cardiovascular: No rubs, No murmurs Gastrointestinal: Soft and benign, No rebound Musculoskeletal: No clubbing, Swelling Integumentary: No warmth Neurological: Normal speech, Normal tone Lymphatics: No axilla or inguinal lymphadenopathy Urinary: Other (no bladder distention) External genitalia: Deferred Rectal: Deferred Laboratory Data (last 24 hrs) 04/10/22 07:21: WBC 11.2 H, Hgb 12.0, Hct 38.0, Plt Count 349 04/10/22 07:21: Sodium 138, Potassium 4.3, BUN 45 H, Creatinine 2.10 H, Glucose 194 H, Magnesium 1.3 L*, Total Bilirubin 0.3, AST 17, ALT 13, Alkaline Phosphatase 87, Lipase 153 04/10/22 06:47: PT Cancelled, INR Cancelled Conclusions/Impression: # NIKOLAY 2/2 accelerated Htn + prerenal state, aggravated by valsartan/entresto & furosemide use SCr was 0.9 in February 2017, then was 1.9 in Dec 2020. SCr on adm is 2.1. Urinalysis w/ high SG, +blood, +proteinuria CT A/P unremarkable KUB +Serum protein gap. F/u random UPCR. F/u random urine chem, CPK, iPTH Start D5W gtt. Avoid Na-containing IV fluid coz she is already very Na- overloaded. Do not restrict free water intake po or IV unless serum Na drops below 130 BP control Monitor I/O, renal panel # Acidosis Monitor Lasix as below # Acute on chronic systolic HF 1+ BLE edema. BNP sig elevated at 3200. Lasix IV bid # HypoMg Replete prn # Htn BP meds adjusted # DM2 Mngt per primary team # Nausea, vomiting CT A/P + cholelithiasis F/u GB US Anti-emetics prn # Hx of CVA Per primary team
[2022-04-10] MEDS ORDERED: FUROSEMIDE 40 MG/4 ML VIAL IV SCH (14:00)
[2022-04-10] MEDS: PANTOPRAZOLE 40 MG INJ IVP SCH ×2 (14:00→21:37)
[2022-04-10] MEDS: HYDRALAZINE HCL 25 MG TABLET PO SCH ×2 (14:00→21:36)
--- NOTE | 2022-04-10 14:05 | RAD REPORT ---
EXAM DESCRIPTION: US - Abdomen Pelvis Scan US - 04/10/2022 1:52 pm CLINICAL HISTORY: High blood pressure Renal artery stenosis COMPARISON: Abdomen Pelvis Scan US dated 12/18/2020 FINDINGS: The bilateral kidneys are normal in size, the right measuring 10.0 x 7.0 x 5.8 cm and the left measuring 11.7 x 5.8 x 5.4 cm. Aortic velocity: 88 cm/second Right proximal renal artery: 151 cm/second Right mid renal artery: 137 cm/second Right distal renal artery: 81 cm/second Right renal arcuate artery resistive index: 0.7 Right renal artery / aorta ratio: 1.7 Left proximal renal artery: 93 cm/second Left mid renal artery: 108 cm/second Left distal renal artery: 58 cm/second Left renal arcuate artery resistive index: 0.9 Left renal artery/aorta ratio: 1.2 Normal waveforms demonstrated within the bilateral renal arteries. IMPRESSION: No evidence of hemodynamically significant stenosis within the bilateral renal arteries.
[2022-04-10 14:15] LABS: Urine Specific Gravity/Preg 1.025 (1.005-1.030)
[2022-04-10] MEDS ORDERED: PANTOPRAZOLE 40 MG INJ ONE (14:15)
[2022-04-10] MEDS ORDERED: HYDRALAZINE HCL 25 MG TABLET ONE (14:15)
[2022-04-10] MEDS: D5W 1,000 ML IV SCH (16:34)
[2022-04-10] MEDS: HEPARIN 5000 UNIT/ML 1 ML VIAL SQ SCH (16:36)
[2022-04-10] MEDS: FUROSEMIDE 40 MG/4 ML VIAL IV SCH (16:36)
[2022-04-10] MEDS: ACETAMINOPHEN 500 MG TAB PO PRN (16:40)
[2022-04-10] MEDS: HYDRALAZINE HCL 20 MG/ML VIAL IV PRN (16:41)
[2022-04-10] MEDS: ONDANSETRON 4 MG/2 ML VIAL IV PRN (16:41)
[2022-04-10] MEDS: carvediloL 25 MG TAB PO SCH (17:19)
[2022-04-10] MEDS: SACUBITRIL/VALSARTAN 49/51 MG TAB PO SCH (21:36)
[2022-04-10] MEDS: ATORVASTATIN 80 MG TAB PO SCH (21:37)
[2022-04-10] MEDS: SERTRALINE HCL 50 MG TAB PO SCH (21:39)
[2022-04-11] MEDS: INSULIN -REGULAR HUMAN 50 UNIT/0.5 ML ML SQ SCH ×6 (01:00→20:40)
[2022-04-11] MEDS: HEPARIN 5000 UNIT/ML 1 ML VIAL SQ SCH ×3 (01:27→18:52)
[2022-04-11] MEDS: HYDRALAZINE HCL 20 MG/ML VIAL IV PRN ×2 (01:28→16:41)
[2022-04-11] MEDS: carvediloL 25 MG TAB PO SCH ×2 (04:54→18:51)
[2022-04-11 05:56] LABS: Absolute Lymphocytes (CBC) 3.2 K/uL (0.7-4.9); Hematocrit 30.9 % (36.0-45.0); Lymphocytes % 25.7 % (15.3-44.8); MPV 7.5 fL (7.6-11.3); RBC Red Blood Cell Count 3.54 M/uL (3.86-4.86)
[2022-04-11 06:21] LABS: Albumin 2.9 g/dL (3.4-5.0); Bilirubin Total 0.3 mg/dL (0.2-1.0); Potassium 3.7 mmol/L (3.5-5.1); Protein, Total 7.4 g/dL (6.4-8.2)
[2022-04-11] MEDS: D5W 1,000 ML IV SCH (07:00)
--- NOTE | 2022-04-11 07:24 | P.PN ---
Date of Service: 04/11/22 Subjective: improved, no nausea/vomiting, hasn't eaten feels thirsty denies abd pain n/v started 1 hour after first dose of ozempic ROS: 10 point ROS as noted above, otherwise negative Physical Exam GEN: Alert, oriented, NAD, obese HEENT: Normal conjunctiva, sclera anicteric CV: Regular rate and rhythm, no edema Pulm: Non-labored respirations on room air ABD: Soft, nontender, nondistended Integumentary: No rashes Neuro: Normal speech, normal affect Problem List Malignant HTN intractable nausea/vomiting CKD3B Acute on chronic Systolic CHF cholelithiasis h/o CVA HLD Depression DM2 morbid Obesity BP improved with PO meds, IV PRN; cardiology consulted antiemetics as needed cholelithiasis seen on CT, U/S today with sonographic signs of cholecystitis general surgery consulted, pt with n/v, leukocytosis, chills at home, but no tenderness/abd pain Cr increasing; nephro consulted hold nephrotoxic meds reports recently taken off BP meds for unknown reason Code: full Dispo: home, ~2 days Time Spent Managing Pts Care (In Minutes): 35
[2022-04-11 07:44] LABS: Magnesium 1.5 mg/dL (1.8-2.4); Phosphorus 3.2 mg/dL (2.5-4.9)
--- NOTE | 2022-04-11 07:57 | EKG ---
Test Date: 2022-04-10 Test Time: 07:00:06 Operations Advisor: MEASUREMENT RESULTS: Intervals: Rate: 106 [place]: 172 QRSD: 88 QT: 362 QTc: 480 [place]: P: 37 [place]: 172 QRS: -10 T: 52 INTERPRETIVE STATEMENTS: Sinus tachycardia Otherwise normal ECG Compared to ECG 11/05/2021 11:56:20 Sinus rhythm no longer present Prolonged QT interval no longer present Electronically Signed On 04-11-22 07:52:48 CDT by Cesar Anderson
[2022-04-11] MEDS ORDERED: POTASSIUM CL SA 10 MEQ TAB PO ONE (09:00)
[2022-04-11] MEDS: LIRAGLUTIDE 0.6 MG/0.1 ML PO SCH (09:00)
[2022-04-11] MEDS: HYDRALAZINE HCL 25 MG TABLET PO SCH ×3 (09:00→20:41)
--- NOTE | 2022-04-11 10:28 | RAD REPORT ---
EXAM DESCRIPTION: US - Abdomen Exam Limited - 04/11/2022 10:15 am CLINICAL HISTORY: eval gallbladder/liver, cholelith , gen abd pain Abdominal pain COMPARISON: No comparisons FINDINGS: The gallbladder demonstrates multiple shadowing gallstones. Gallbladder wall is thickened to 9 mm with edema present. The common bile duct is normal measuring 4-5 mm. The liver demonstrates no findings of intrahepatic biliary dilatation. IMPRESSION: Cholelithiasis with sonographic findings suspicious for acute cholecystitis.
[2022-04-11] MEDS: SACUBITRIL/VALSARTAN 49/51 MG TAB PO SCH (10:49)
[2022-04-11] MEDS: MONTELUKAST 10 MG TAB PO SCH (10:49)
[2022-04-11] MEDS: ASPIRIN 81 MG CHEWABLE TABLET PO SCH (10:49)
[2022-04-11] MEDS: PANTOPRAZOLE 40 MG INJ IVP SCH ×2 (10:50→20:42)
[2022-04-11] MEDS: FUROSEMIDE 40 MG/4 ML VIAL IV SCH ×2 (10:51→18:51)
[2022-04-11] MEDS: ACETAMINOPHEN 500 MG TAB PO PRN (16:29)
[2022-04-11] MEDS: NIFEDIPINE XL 30 MG TABLET PO SCH ×2 (16:40→20:40)
[2022-04-11] MEDS ORDERED: Magnesium Sulfate 2gm IVPB 2 G/50 ML BAG IV ONE (20:01)
[2022-04-11] MEDS: ATORVASTATIN 80 MG TAB PO SCH (20:38)
[2022-04-11] MEDS: SERTRALINE HCL 50 MG TAB PO SCH (20:39)
[2022-04-11] MEDS: ONDANSETRON 4 MG/2 ML VIAL IV PRN (20:42)
[2022-04-11 22:31] LABS: Urine Appearance Clear (Clear); Urine Bilirubin Negative (Negative); Urine Blood Trace-intact (Negative); Urine Color Yellow (Yellow); Urine Glucose Negative (Negative); Urine Protein 3+ (Negative); Urine Urobilinogen 0.2 mg/dL (0.2-1.0)
[2022-04-11 22:46] LABS: Urine Microscopic Reflex ORDER UMIC
[2022-04-11 23:47] LABS: Urine Bacteria 20-50 /HPF (<20)
[2022-04-11 23:51] LABS: UR PROTEIN 274.7 mg/dL (<11.9); Urine Protein/Creatinine Ratio 2.03 ratio (<0.15)
[2022-04-12] MEDS: INSULIN -REGULAR HUMAN 50 UNIT/0.5 ML ML SQ SCH ×6 (01:00→21:00)
[2022-04-12] MEDS: HEPARIN 5000 UNIT/ML 1 ML VIAL SQ SCH ×3 (01:00→17:52)
--- NOTE | 2022-04-12 04:40 | P.PN ---
Subjective Date of Service: 04/11/22 Chief Complaint: Hypertensive Urgency Subjective: No new changes Physical Examination - Vital Signs Temperature: 98.2 F Blood Pressure: 120/58 Pulse: 93 Respirations: 18 Pulse Ox (%): 97 - Physical Exam General: Other (appears as her stated age) HEENT: Atraumatic, Normocephalic Neck: Supple, JVD not distended Respiratory: Other (symmetric chest expansion) Cardiovascular: No rubs, No murmurs Gastrointestinal: Soft and benign, No rebound Musculoskeletal: No clubbing Integumentary: No warmth Neurological: Normal tone Urinary: Other (no bladder distention) External genitalia: Deferred Rectal: Deferred Assessment And Plan - Plan # NIKOLAY 2/2 accelerated Htn + prerenal state, aggravated by valsartan/entresto & furosemide use SCr was 0.9 in February 2017, then was 1.9 in Dec 2020. SCr on adm is 2.1, increased to 2.6. Urinalysis w/ high SG, +blood, +proteinuria CT A/P unremarkable KUB +Serum protein gap. Random UPCR 2.0g. Urine chem non-prerenal F/u CPK Dc D5W gtt Avoid Na-containing IV fluid coz she is already very Na-overloaded. Do not restrict free water intake po or IV unless serum Na drops below 130 BP control Monitor I/O, renal panel # Acidosis Monitor Lasix as below # Secondary hyperPTH iPTH elevated at 319. Recheck PTH when NIKOLAY improved. F/u 25OHD # Acute on chronic systolic HF 1+ BLE edema. BNP sig elevated at 3200. Lasix IV bid # HypoMg Replete prn # Htn BP meds adjusted. Start Nifedipine XL 30 mg po bid. # DM2 Mngt per primary team # Nausea, vomiting CT A/P + cholelithiasis F/u GB US Anti-emetics prn # Hx of CVA Per primary team
[2022-04-12] MEDS: carvediloL 25 MG TAB PO SCH ×2 (05:30→17:52)
--- NOTE | 2022-04-12 06:39 | P.PN ---
Date of Service: 04/12/22 Subjective: nausea/vomiting last night no abd pain feels ok otherwise BP better ROS: 10 point ROS as noted above, otherwise negative Physical Exam GEN: Alert, oriented, NAD, obese HEENT: Normal conjunctiva, sclera anicteric CV: Regular rate and rhythm, no edema Pulm: Non-labored respirations on room air ABD: Soft, nontender, nondistended Integumentary: No rashes Neuro: Normal speech, normal affect Problem List Malignant HTN intractable nausea/vomiting CKD3B Acute on chronic Systolic CHF cholelithiasis h/o CVA HLD Depression DM2 morbid Obesity BP improved with PO meds, IV PRN; cardiology consulted antiemetics as needed cholelithiasis seen on CT, U/S with sonographic signs of cholecystitis general surgery consulted, pt with n/v, leukocytosis, chills at home, but no tenderness/abd pain; no plan for surgery at this time Cr increasing; nephro consulted, holden for accurate I/Os hold nephrotoxic meds reports recently taken off BP meds for unknown reason by her doctor Code: full Dispo: home, ~2 days Time Spent Managing Pts Care (In Minutes): 35
[2022-04-12 06:53] LABS: Hematocrit 32.1 % (36.0-45.0); MPV 7.7 fL (7.6-11.3); RBC Red Blood Cell Count 3.66 M/uL (3.86-4.86)
[2022-04-12 07:12] LABS: Bilirubin Total 0.5 mg/dL (0.2-1.0); Magnesium 2.1 mg/dL (1.8-2.4); Protein, Total 7.7 g/dL (6.4-8.2)
[2022-04-12] MEDS: LIRAGLUTIDE 0.6 MG/0.1 ML PO SCH (09:00)
[2022-04-12] MEDS: HYDRALAZINE HCL 25 MG TABLET PO SCH ×3 (09:00→21:00)
[2022-04-12] MEDS: ASPIRIN 81 MG CHEWABLE TABLET PO SCH (11:20)
[2022-04-12] MEDS: MONTELUKAST 10 MG TAB PO SCH (11:22)
[2022-04-12] MEDS: NIFEDIPINE XL 30 MG TABLET PO SCH ×2 (11:26→22:05)
[2022-04-12] MEDS: FUROSEMIDE 40 MG/4 ML VIAL IV SCH ×2 (11:26→17:52)
[2022-04-12] MEDS: PANTOPRAZOLE 40 MG INJ IVP SCH ×2 (11:26→21:55)
--- NOTE | 2022-04-12 12:34 | P.PN ---
Subjective Date of Service: 04/12/22 Chief Complaint: Hypertensive Urgency Subjective: No new changes Physical Examination - Vital Signs Temperature: 97.8 F Blood Pressure: 140/65 Pulse: 88 Respirations: 16 Pulse Ox (%): 97 - Physical Exam General: In no apparent distress HEENT: Atraumatic, Normocephalic Neck: Supple, JVD not distended Respiratory: Other (symmetric chest expansion) Cardiovascular: No rubs, No murmurs Gastrointestinal: Soft and benign, No rebound Musculoskeletal: No clubbing Integumentary: No warmth Urinary: Other (no bladder distention) External genitalia: Deferred Rectal: Deferred Assessment And Plan - Plan # NIKOLAY 2/2 accelerated Htn + prerenal state, aggravated by valsartan/entresto & furosemide use SCr was 0.9 in February 2017, then was 1.9 in Dec 2020. SCr on adm is 2.1, increased to 3.1. Urinalysis w/ high SG, +blood, +proteinuria CT A/P unremarkable KUB +Serum protein gap. Random UPCR 2.0g. Urine chem non-prerenal CPK not sig elevated Avoid Na-containing IV fluid coz she is already very Na-overloaded. Do not restrict free water intake po or IV unless serum Na drops below 130 BP control Insert holden, keep for at least 2 days Monitor I/O, renal panel # Acidosis Monitor Lasix as below # Secondary hyperPTH iPTH elevated at 319. Recheck PTH when NIKOLAY improved. 25OHD low at 9 Start on D3 5T IU po daily on 04/13/22, x 3 mos # Acute on chronic systolic HF 1+ BLE edema. BNP sig elevated at 3200. Cont Lasix IV bid # HypoMg Replete prn # Htn BP meds adjusted. Start Nifedipine XL 30 mg po bid. # DM2 Mngt per primary team # Nausea, vomiting CT A/P + cholelithiasis F/u GB US Anti-emetics prn # Hx of CVA Per primary team
--- NOTE | 2022-04-12 13:43 | CON ---
Date of Consultation: 04/10/2022 Reason For Consultation: Hypertensive crisis. History Of Present Illness: Ms. Donovan is 42-year-old woman with morbid obesity, chronic systolic con gestive heart failure, hypertension, dyslipidemia, chronic renal insufficiency, noncompliance. She s ees Dr. Barkley in [place] from a Cardiology standpoint. Has been noncompliant with her medications. Came in with a blood pressure of 224/130 without any specific symptoms from a cardiac standpoint. By the time I saw her, her blood pressure was 160/79. Past Medical History: As stated above. Allergies: NONE. Review of Systems: Negative. Social History: Negative. Family History: Noncontributory. Medications: At home are supposed to be hydralazine and Entresto and Coreg as well as Lasix and Lipi tor. Physical Examination: Vital Signs: Blood pressure was 160/79, morbidly obese. Vital signs stable otherwise, afebrile, sin us rhythm. HEENT: Negative. Neck: Supple with no bruit. Chest: Revealed no rales. Was clear to auscultation and percussion. Cardiac: Revealed S4 gallops. Regular rhythm and rate. Abdomen: Obese, but benign. Extremities: Revealed no clubbing, cyanosis. She had trace edema. Laboratory Data: Her EKG showed LVH. Chest x-ray was negative. Creatinine is 2.10. Magnesium is 1 .3. BNP is 3182. Impression And Plan: 1.Hypertensive crisis secondary to noncompliance. 2.Chronic renal insufficiency, stage III. 3.Low magnesium that needs to be supplemented. 4.Elevated BNP secondary to chronic systolic congestive heart failure. 5.Dyslipidemia, on Lipitor. 6.Chronic systolic congestive heart failure, on Entresto and Coreg and Lasix. The patient's regimen right now include hydralazine, Entresto, Coreg, and labetalol. Her pressure has improved. It is re asonable to send her home with the same medications, except that I will hold labetalol and use presen ce of Coreg. I would consider losartan consider increasing the dose of Entresto, consider increasing the dose of hydralazine. As far as I am concerned, she can go home whenever it is okay with Dr. Hartman to. She just had an echocardiogram in the last 2-[address] Barkley and there is no point repeati ng that. SHANNON/ANGI Voice ID: [id number] Report ID: [id number]
[2022-04-12] MEDS: ATORVASTATIN 80 MG TAB PO SCH (21:56)
[2022-04-12] MEDS: SERTRALINE HCL 50 MG TAB PO SCH (21:56)
[2022-04-13] MEDS: HEPARIN 5000 UNIT/ML 1 ML VIAL SQ SCH ×3 (01:23→16:32)
[2022-04-13] MEDS: carvediloL 25 MG TAB PO SCH ×2 (06:35→18:01)
--- NOTE | 2022-04-13 06:36 | P.PN ---
Date of Service: 04/13/22 Subjective: no new issues/concerns feels ok, no pain, no fever/chills, no vomiting ROS: 10 point ROS as noted above, otherwise negative Physical Exam GEN: Alert, oriented, NAD, obese CV: Regular rate and rhythm, no edema Pulm: Non-labored respirations on room air ABD: Soft, nontender, nondistended Integumentary: No rashes Neuro: Normal speech, normal affect Problem List Malignant HTN intractable nausea/vomiting NIKOLAY on CKD3B Acute on chronic Systolic CHF cholelithiasis h/o CVA HLD Depression DM2 morbid Obesity BP improved with PO meds, IV PRN; cardiology consulted antiemetics as needed cholelithiasis seen on CT, U/S with sonographic signs of cholecystitis general surgery consulted, pt with n/v, leukocytosis, chills at home, but no tenderness/abd pain; no plan for surgery at this time Cr increasing; nephro consulted, holden for accurate I/Os hold nephrotoxic meds; dc'd protonix Code: full Dispo: home, ~2 days Time Spent Managing Pts Care (In Minutes): 35
[2022-04-13 06:42] LABS: Bilirubin Total 0.6 mg/dL (0.2-1.0); Protein, Total 7.2 g/dL (6.4-8.2)
[2022-04-13 06:50] LABS: Absolute Lymphocytes (CBC) 2.7 K/uL (0.7-4.9); Lymphocytes % 23.5 % (15.3-44.8); MPV 7.8 fL (7.6-11.3); RBC Red Blood Cell Count 3.49 M/uL (3.86-4.86)
--- NOTE | 2022-04-13 06:59 | P.PN ---
Subjective Date of Service: 04/13/22 Chief Complaint: Hypertensive Urgency Subjective: No new changes Physical Examination - Vital Signs Temperature: 97.9 F Blood Pressure: 115/60 Pulse: 85 Respirations: 18 Pulse Ox (%): 92 - Physical Exam General: In no apparent distress HEENT: Atraumatic, Normocephalic Neck: Supple, JVD not distended Respiratory: Other (symmetric chest expansion) Cardiovascular: No rubs, No murmurs Gastrointestinal: Soft and benign, No rebound Musculoskeletal: No clubbing Integumentary: No warmth Neurological: Normal speech, Normal tone Lymphatics: No axilla or inguinal lymphadenopathy Urinary: Holden catheter, Other (no bladder distention) External genitalia: Deferred Rectal: Deferred Assessment And Plan - Plan # NIKOLAY 2/2 accelerated Htn + prerenal state +/- AIN from PPI, aggravated by valsartan/entresto & furosemide use SCr was 0.9 in February 2017, then was 1.9 in Dec 2020. SCr on adm is 2.1, inc reased to 3.6 Urinalysis w/ high SG, +blood, +proteinuria CT A/P unremarkable KUB +Serum protein gap. Random UPCR 2.0g. Urine chem non-prerenal CPK not sig elevated, no rhabdo Dc protonix Avoid Na-containing IV fluid coz she is already very Na-overloaded. Do not restrict free water intake po or IV unless serum Na drops below 130 Cont holden BP control Monitor I/O, renal panel # Acidosis Monitor Lasix as below # Secondary hyperPTH iPTH elevated at 319. Start Calcitriol 0.25 mcg po daily. Recheck PTH when NIKOLAY improved. 25OHD low at 9. Start D3 5T IU po daily # Acute on chronic systolic HF 1+ BLE edema. BNP sig elevated at 3200. Lasix IV bid # HypoMg Replete prn # Htn BP meds adjusted. Cont Nifedipine XL 30 mg po bid. # DM2 Mngt per primary team # Nausea, vomiting CT A/P + cholelithiasis No surg intervention per Gen Surg service Anti-emetics prn # Hx of CVA Per primary team
[2022-04-13] MEDS: INSULIN -REGULAR HUMAN 50 UNIT/0.5 ML ML SQ SCH ×4 (07:30→20:51)
[2022-04-13] MEDS: HYDRALAZINE HCL 25 MG TABLET PO SCH ×3 (09:00→21:00)
[2022-04-13] MEDS: LIRAGLUTIDE 0.6 MG/0.1 ML PO SCH (09:00)
[2022-04-13] MEDS: VITAMIN D 5,000 UNIT CAP PO SCH (10:02)
[2022-04-13] MEDS: PANTOPRAZOLE 40 MG INJ IVP SCH (10:02)
[2022-04-13] MEDS: MONTELUKAST 10 MG TAB PO SCH (10:03)
[2022-04-13] MEDS: FUROSEMIDE 40 MG/4 ML VIAL IV SCH ×2 (10:03→16:32)
[2022-04-13] MEDS: ASPIRIN 81 MG CHEWABLE TABLET PO SCH (10:03)
[2022-04-13] MEDS: NIFEDIPINE XL 30 MG TABLET PO SCH ×2 (10:07→21:00)
--- NOTE | 2022-04-13 14:28 | P.PN ---
Date of Service: 04/13/22 Patient's right upper quadrant abdominal pain appears to have resolved. She is free to follow-up with me once her kidney issues have been resolved. I have explained this to her and she is happy with that.
[2022-04-13 18:06] VITALS: BMI 56.3
[2022-04-13] MEDS: ATORVASTATIN 80 MG TAB PO SCH (21:47)
[2022-04-13] MEDS: SERTRALINE HCL 50 MG TAB PO SCH (21:47)
[2022-04-14] MEDS: HEPARIN 5000 UNIT/ML 1 ML VIAL SQ SCH ×4 (01:47→23:57)
[2022-04-14 06:05] LABS: Absolute Lymphocytes (CBC) 3.2 K/uL (0.7-4.9); Hematocrit 30.5 % (36.0-45.0); Lymphocytes % 27.3 % (15.3-44.8); RBC Red Blood Cell Count 3.44 M/uL (3.86-4.86)
[2022-04-14 06:35] LABS: Albumin 2.8 g/dL (3.4-5.0); Bilirubin Total 0.6 mg/dL (0.2-1.0); C-Reactive Protein 20.2 mg/L (<3.00); Phosphorus 4.9 mg/dL (2.5-4.9); Potassium 3.9 mmol/L (3.5-5.1); Protein, Total 7.3 g/dL (6.4-8.2)
[2022-04-14] MEDS: carvediloL 25 MG TAB PO SCH ×2 (07:12→17:32)
[2022-04-14] MEDS: INSULIN -REGULAR HUMAN 50 UNIT/0.5 ML ML SQ SCH ×4 (07:30→20:55)
[2022-04-14] MEDS: HYDRALAZINE HCL 25 MG TABLET PO SCH ×2 (09:00→14:00)
[2022-04-14] MEDS ORDERED: POTASSIUM CL SA 10 MEQ TAB PO ONE (09:00)
[2022-04-14] MEDS: LIRAGLUTIDE 0.6 MG/0.1 ML PO SCH (09:00)
--- NOTE | 2022-04-14 09:13 | P.PN ---
Subjective Date of Service: 04/14/22 Chief Complaint: Hypertensive Urgency Subjective: No new changes Physical Examination - Vital Signs Temperature: 97 F Blood Pressure: 124/59 Pulse: 80 Respirations: 16 Pulse Ox (%): 93 - Physical Exam General: In no apparent distress HEENT: Atraumatic, Normocephalic Neck: Supple, JVD not distended Respiratory: Other (symmetric chest expansion) Cardiovascular: No rubs, No murmurs Gastrointestinal: Soft and benign, No rebound Musculoskeletal: No clubbing Integumentary: No warmth Neurological: Normal speech, Normal tone Urinary: Holden catheter, Other (no bladder distention) External genitalia: Deferred Rectal: Deferred Assessment And Plan - Plan # NIKOLAY 2/2 accelerated Htn + prerenal state +/- AIN from PPI, aggravated by valsartan/entresto & furosemide use SCr was 0.9 in February 2017, then was 1.9 in Dec 2020. SCr on adm is 2.1, increased to 3.6, not plateaued Urinalysis w/ high SG, +blood, +proteinuria CT A/P unremarkable KUB +Serum protein gap. Random UPCR 2.0g. Urine chem non-prerenal CPK not sig elevated, no rhabdo Protonix d/c'ed Avoid Na-containing IV fluid coz she is already very Na-overloaded. Do not restrict free water intake po or IV unless serum Na drops below 130 Cont holden BP control Monitor I/O, renal panel # Acidosis Monitor Lasix as below # Secondary hyperPTH iPTH elevated at 319. Start Calcitriol 0.25 mcg po daily. Recheck PTH when NIKOLAY improved. 25OHD low at 9. Start D3 5T IU po daily # Acute on chronic systolic HF 1+ BLE edema. BNP sig elevated at 3200. Lasix IV bid # HypoMg Replete prn # Htn BP meds adjusted. Cont Nifedipine XL 30 mg po bid. # DM2 Mngt per primary team # Nausea, vomiting CT A/P + cholelithiasis No surg intervention per Gen Surg service Anti-emetics prn # Hx of CVA Per primary team
[2022-04-14] MEDS: NIFEDIPINE XL 30 MG TABLET PO SCH ×2 (10:12→20:55)
[2022-04-14] MEDS: ASPIRIN 81 MG CHEWABLE TABLET PO SCH (10:12)
[2022-04-14] MEDS: MONTELUKAST 10 MG TAB PO SCH (10:13)
[2022-04-14] MEDS: FAMOTIDINE 20 MG TAB PO SCH (10:13)
[2022-04-14] MEDS: VITAMIN D 5,000 UNIT CAP PO SCH (10:13)
[2022-04-14] MEDS: CALCITROL 0.25 MCG CAP PO SCH (10:13)
[2022-04-14] MEDS: FUROSEMIDE 40 MG/4 ML VIAL IV SCH ×2 (10:13→17:32)
--- NOTE | 2022-04-14 16:06 | P.PN ---
Date of Service: 04/14/22 Subjective: no new issues/concerns feels ok, no pain, no fever/chills, no vomiting tolerated liquid diet UOP low ROS: 10 point ROS as noted above, otherwise negative Physical Exam GEN: Alert, oriented, NAD, obese CV: Regular rate and rhythm, no edema Pulm: Non-labored respirations on room air ABD: Soft, nontender, nondistended Integumentary: No rashes Neuro: Normal speech, normal affect holden in place Problem List Malignant HTN intractable nausea/vomiting NIKOLAY on CKD3B Acute on chronic Systolic CHF cholelithiasis h/o CVA HLD Depression DM2 morbid Obesity BP improved with PO meds, IV PRN; cardiology consulted nausea resolved; advance diet as tolerated cholelithiasis seen on CT, U/S with sonographic signs of cholecystitis general surgery consulted, pt with n/v, leukocytosis, chills at home, but no tenderness/abd pain; no plan for surgery at this time Cr increasing; nephro consulted, holden for accurate I/Os placed a few days ago UOP low possible PPI contributed, in addition to uncontrolled HTN hold nephrotoxic meds; dc'd protonix 04/13 Cr seems to have plateaued Code: full Dispo: home, ~2 days Time Spent Managing Pts Care (In Minutes): 35
[2022-04-14] MEDS: ATORVASTATIN 80 MG TAB PO SCH (20:54)
[2022-04-14] MEDS: SERTRALINE HCL 50 MG TAB PO SCH (20:56)
[2022-04-15] MEDS: carvediloL 25 MG TAB PO SCH ×2 (04:59→17:25)
--- NOTE | 2022-04-15 06:23 | P.PN ---
Date of Service: 04/15/22 Subjective: stable, no nausea/vomiting, tolerating diet holden in place no pains, no fever/chills ROS: 10 point ROS as noted above, otherwise negative Physical Exam GEN: Alert, oriented, NAD, obese CV: Regular rate and rhythm, no edema Pulm: Non-labored respirations on room air ABD: Soft, nontender, nondistended Integumentary: No rashes Neuro: Normal speech, normal affect holden in place, sediment in tubing Problem List Malignant HTN intractable nausea/vomiting NIKOLAY on CKD3B Acute on chronic Systolic CHF cholelithiasis h/o CVA HLD Depression DM2 morbid Obesity BP improved with PO meds, IV PRN; cardiology consulted nausea resolved; tolerating diet cholelithiasis seen on CT, U/S with sonographic signs of cholecystitis general surgery consulted, pt with n/v, leukocytosis, chills at home, but no t enderness/abd pain; no plan for surgery at this time Cr increasing; nephro consulted, holden for accurate I/Os placed a few days ago; renal function now slowly improving; discontinued protonix 2days ago UOP picking up suspect PPI contributed to worsening NIKOLAY on top of initial injury from uncontrolled HTN hold nephrotoxic meds; dc'd protonix 04/13 Cr improving Code: full Dispo: home, ~1-2 days Time Spent Managing Pts Care (In Minutes): 35
[2022-04-15] MEDS: INSULIN -REGULAR HUMAN 50 UNIT/0.5 ML ML SQ SCH ×2 (07:30→11:30)
--- NOTE | 2022-04-15 07:35 | P.PN ---
Subjective Date of Service: 04/15/22 Chief Complaint: Hypertensive Urgency Subjective: Other (No c/o SOB/N/V/D/flank pain.) Physical Examination - Vital Signs Temperature: 97 F Blood Pressure: 124/59 Pulse: 80 Respirations: 16 Pulse Ox (%): 93 - Physical Exam General: In no apparent distress HEENT: Atraumatic, Normocephalic Neck: Supple, JVD not distended Respiratory: Other (Symmetric chest expansion) Cardiovascular: No rubs, No murmurs Gastrointestinal: Soft and benign, No rebound Musculoskeletal: No clubbing Integumentary: No warmth Neurological: Normal speech, Normal tone Urinary: Other (No bladder distention) External genitalia: Deferred Rectal: Deferred Assessment And Plan - Plan # NIKOLAY 2/2 accelerated Htn + prerenal state + likely AIN from PPI, aggravated by valsartan/entresto & furosemide use SCr was 0.9 in February 2017, then was 1.9 in Dec 2020. SCr on adm is 2.1, increased to 3.7, now improved to 3.3 Urinalysis w/ high SG, +blood, +proteinuria CT A/P unremarkable KUB +Serum protein gap. Random UPCR 2.0g. Urine chem non-prerenal CPK not sig elevated, no rhabdo Protonix d/c'ed; list PPI as allergy Avoid Na-containing IV fluid coz she is already very Na-overloaded. Do not restrict free water intake po or IV unless serum Na drops below 130 Cont holden BP control Monitor I/O, renal panel # Acidosis Improved, monitor Lasix as below # Secondary hyperPTH iPTH elevated at 319. Started on Calcitriol 0.25 mcg po daily. Recheck PTH when NIKOLAY improved. 25OHD low at 9. Started on D3 5T IU po daily # Acute on chronic systolic HF Improved 1+ BLE edema. BNP sig elevated at 3200. Switch Lasix IV to PO bid # HypoMg Replete prn # Htn BP meds adjusted. Cont Nifedipine XL 30 mg po bid. # DM2 Mngt per primary team # Nausea, vomiting CT A/P + cholelithiasis No surg intervention per Gen Surg service Anti-emetics prn # Hx of CVA Per primary team
[2022-04-15] MEDS: LIRAGLUTIDE 0.6 MG/0.1 ML PO SCH (09:00)
[2022-04-15] MEDS: ASPIRIN 81 MG CHEWABLE TABLET PO SCH (10:29)
[2022-04-15] MEDS: VITAMIN D 5,000 UNIT CAP PO SCH (10:30)
[2022-04-15] MEDS: NIFEDIPINE XL 30 MG TABLET PO SCH ×2 (10:30→21:17)
[2022-04-15] MEDS: FAMOTIDINE 20 MG TAB PO SCH (10:30)
[2022-04-15] MEDS: HEPARIN 5000 UNIT/ML 1 ML VIAL SQ SCH (10:30)
[2022-04-15] MEDS: FUROSEMIDE 40 MG/4 ML VIAL IV SCH ×2 (10:30→17:24)
[2022-04-15] MEDS: MONTELUKAST 10 MG TAB PO SCH (10:31)
[2022-04-15] MEDS: CALCITROL 0.25 MCG CAP PO SCH (10:31)
[2022-04-15] MEDS: ACETAMINOPHEN 500 MG TAB PO PRN (10:38)
[2022-04-15 15:48] LABS: C-Reactive Protein 61.2 mg/L (<3.00); Potassium 4.1 mmol/L (3.5-5.1)
[2022-04-15] MEDS: ATORVASTATIN 80 MG TAB PO SCH (21:17)
[2022-04-15] MEDS: SERTRALINE HCL 50 MG TAB PO SCH (21:17)
[2022-04-16] MEDS: carvediloL 25 MG TAB PO SCH ×2 (06:08→17:25)
--- NOTE | 2022-04-16 06:32 | P.PN ---
Date of Service: 04/16/22 Subjective: no acute events Cr stable holden remains, pt states holden starting to become uncomfortable when rep ositioning ROS: 10 point ROS as noted above, otherwise negative Physical Exam GEN: Alert, oriented, NAD, obese CV: Regular rate and rhythm, no edema Pulm: Non-labored respirations on room air ABD: Soft, nontender, nondistended Neuro: Normal speech, normal affect holden in place Problem List Malignant HTN intractable nausea/vomiting, secondary to ozembic NIKOLAY on CKD3B Acute on chronic Systolic CHF cholelithiasis h/o CVA HLD Depression DM2 morbid Obesity BP improved with PO meds, IV PRN; cardiology consulted nausea resolved; tolerating diet suspect n/v secondary to ozembic, was first dose for patient unclear baseline Cr, uptrended nephro consulted on admission, holden placed for accurate I/Os renal function now improving slowly - after dc'ing protonix (04/13) suspect PPI contributed to worsening NIKOLAY on top of initial injury from uncontrolled HTN on further discussion, patient states she follows with Dr. Lee in office dc holden 04/16, check PVRs cholelithiasis seen on CT, U/S with sonographic signs of cholecystitis general surgery consulted, pt with n/v, leukocytosis, chills at home, but no tenderness/abd pain; no plan for surgery at this time Code: full Dispo: home, ~1 day Time Spent Managing Pts Care (In Minutes): 35
[2022-04-16 07:21] LABS: MPV 8.3 fL (7.6-11.3); RBC Red Blood Cell Count 4.96 M/uL (3.86-4.86)
[2022-04-16 07:27] LABS: C-Reactive Protein 66.5 mg/L (<3.00); Potassium 4.1 mmol/L (3.5-5.1)
[2022-04-16] MEDS: DULERA 100/5 (MOMETASONE/FORMOTEROL) INHALER IH SCH ×2 (08:00→21:00)
[2022-04-16] MEDS: NIFEDIPINE XL 30 MG TABLET PO SCH ×2 (08:48→21:00)
[2022-04-16] MEDS: ASPIRIN 81 MG CHEWABLE TABLET PO SCH (08:49)
[2022-04-16] MEDS: FUROSEMIDE 40 MG TABLET PO SCH ×2 (08:49→17:25)
[2022-04-16] MEDS: FAMOTIDINE 20 MG TAB PO SCH (08:50)
[2022-04-16] MEDS: MONTELUKAST 10 MG TAB PO SCH (08:50)
[2022-04-16] MEDS: VITAMIN D 5,000 UNIT CAP PO SCH (08:50)
[2022-04-16] MEDS: CALCITROL 0.25 MCG CAP PO SCH (08:50)
[2022-04-16] MEDS: LIRAGLUTIDE 0.6 MG/0.1 ML PO SCH (08:53)
[2022-04-16] MEDS ORDERED: HOME MED 1 EA UNK (Budesonide/Formoterol Fumarate [Symbicort 160-4.5 Mcg Inhaler] 10.2 GM IH SCH (09:00)
[2022-04-16] MEDS: ATORVASTATIN 80 MG TAB PO SCH (20:59)
[2022-04-16] MEDS: SERTRALINE HCL 50 MG TAB PO SCH (21:00)
[2022-04-16 23:36] VITALS: O2SAT 96
[2022-04-17] MEDS: carvediloL 25 MG TAB PO SCH (05:17)
[2022-04-17 06:17] LABS: Magnesium 2.2 mg/dL (1.8-2.4); Potassium 3.7 mmol/L (3.5-5.1)
[2022-04-17] MEDS: DULERA 100/5 (MOMETASONE/FORMOTEROL) INHALER IH SCH (08:00)
[2022-04-17] MEDS: LIRAGLUTIDE 0.6 MG/0.1 ML PO SCH (09:00)
[2022-04-17] MEDS: ASPIRIN 81 MG CHEWABLE TABLET PO SCH (09:15)
[2022-04-17] MEDS: FUROSEMIDE 40 MG TABLET PO SCH (09:15)
[2022-04-17] MEDS: CALCITROL 0.25 MCG CAP PO SCH (09:16)
[2022-04-17] MEDS: MONTELUKAST 10 MG TAB PO SCH (09:16)
[2022-04-17] MEDS: NIFEDIPINE XL 30 MG TABLET PO SCH (09:16)
[2022-04-17] MEDS: VITAMIN D 5,000 UNIT CAP PO SCH (09:17)
[2022-04-17] MEDS: FAMOTIDINE 20 MG TAB PO SCH (09:17)
[2022-04-17 11:40] VITALS: BP 128/59; TEMP 97.1
--- NOTE | 2022-04-17 12:21 | P.DS ---
Admission Date: 04/10/22 Discharge Date: 04/17/22 Disposition: ROUTINE DISCHARGE Discharge Condition: FAIR Reason for Admission: Hypertensive Urgency Brief History of Present Illness: Patient is a 42-year-old female with a past medical history significant for diabetes, hypertension, CHF, CVA, morbid obesity who presented with complaint of uncontrolled hypertension, nausea and vomiting. Patient reported that her blood sugar has been uncontrolled and has been in the 200s to 300s. Patient reported that her insulin medication was changed to Ozempic and she took 2 units around 8 PM yesterday. 1 hour later patient started having nausea and vomiting that has been ongoing since yesterday. Patient also reports that her blood pressure has been uncontrolled in the last 1 month with systolic SBP in the 200s. Patient reported that she has not been able to follow-up with her PCP due to insurance issues. Patient reports associated signs and symptoms of chills, shortness of breath with exertion and BLE edema. Patient denies any other signs and symptoms. Symptoms are aggravated or relieved by nothing. Patient decided to present to the hospital due to worsening symptoms. Hospital Course: Problem List Malignant HTN intractable nausea/vomiting, secondary to ozembic NIKOLAY on CKD3B Acute on chronic Systolic CHF cholelithiasis h/o CVA HLD Depression DM2 morbid Obesity Hospital course Patient admitted to the medical floor. Ozempic was stopped. Nephrology consulted to assist with management of NIKOLAY. NIKOLAY suspected to be secondary to dehydration from nausea and vomiting, malignant hypertension, and medication- Entresto/Lasix. Nephrology also suspect AIN secondary to Protonix. Protonix was discontinued. Patient was stable respiratory arriola and appeared compensated for CHF. Diuretics continued during the hospital stay. Patient also placed on multiple antihypertensive for blood pressure control. BP improved with PO meds, . nausea resolved; tolerating diet Serum creatinine plateaued at 3.7 and started trending down cholelithiasis seen on CT, U/S with sonographic signs of cholecystitis general surgery consulted, seen by Dr. Hsu who recommended outpatient elective cholecystectomy. Creatinine Have Started Trending down, patient request to go home. Case discussed with Dr. Lee who is okay with patient discharging today but will follow up with her in the office MARJORIE. Vital Signs/Physical Exam: Temp Pulse Resp BP Pulse Ox 97.1 F 76 16 128/59 L 100 04/17/22 11:39 04/17/22 11:39 04/17/22 11:39 04/17/22 11:39 04/17/22 11:39 General: Alert, In no apparent distress, Obese HEENT: Mucous membr. moist/pink Neck: JVD not distended Respiratory: Clear to auscultation bilaterally, Normal air movement Cardiovascular: No edema, Regular rate/rhythm, Normal S1 S2 Gastrointestinal: Normal bowel sounds, Soft and benign, No tenderness Musculoskeletal: No swelling Integumentary: No rashes, No cyanosis Neurological: Normal strength at 5/5 x4 extr Laboratory Data at Discharge: WBC 10.6 K/uL (4.3-10.9) 04/16/22 06:43 Hgb 13.7 g/dL (12.0-15.0) D 04/16/22 06:43 Hct 44.0 % (36.0-45.0) D 04/16/22 06:43 Plt Count 241 K/uL (152-406) D 04/16/22 06:43 PT Cancelled 04/10/22 06:47 INR Cancelled 04/10/22 06:47 Sodium 135 mmol/L (136-145) L 04/17/22 05:48 Potassium 3.7 mmol/L (3.5-5.1) 04/17/22 05:48 BUN 66 mg/dL (7-18) H 04/17/22 05:48 Creatinine 3.37 mg/dL (0.55-1.3) H 04/17/22 05:48 Glucose 111 mg/dL (74-106) H 04/17/22 05:48 Phosphorus 4.9 mg/dL (2.5-4.9) 04/14/22 05:50 Magnesium 2.2 mg/dL (1.8-2.4) 04/17/22 05:48 Total Bilirubin 0.6 mg/dL (0.2-1.0) 04/14/22 05:50 AST 11 U/L (15-37) L 04/14/22 05:50 ALT 11 U/L (12-78) L 04/14/22 05:50 Alkaline Phosphatase 69 U/L (45-117) 04/14/22 05:50 Lipase 153 U/L (73-393) 04/10/22 07:21 Home Medications: Sertraline [Zoloft*] 50 mg PO DAILY 11/16/16 Atorvastatin Calcium [Lipitor] 80 mg PO BEDTIME #0 tab 11/18/16 Albuterol Sulfate [Albuterol Sulfate 0.083% Neb Soln] 0.63 mg NEB Q6HP PRN 04/11/22 Budesonide/Formoterol Fumarate [Symbicort 160-4.5 Mcg Inhaler] 2 puff IH BID 04/11/22 Ezetimibe 10 mg PO DAILY 04/11/22 Insulin Aspart [Novolog Flexpen] 12 unit SQ TIDWM 04/11/22 Levothyroxine Sodium [Levothyroxine] 50 mcg PO AC 04/11/22 Linagliptin [Tradjenta] 5 mg PO DAILY 04/11/22 Calcitrol [Rocaltrol*] 0.25 mcg PO DAILY #30 cap 04/17/22 Cholecalciferol (Vitamin D3) [Vitamin D 5,000 IU Cap*] 5,000 unit PO DAILY #30 cap 04/17/22 Furosemide [Lasix*] 40 mg PO BIDL #60 tab 04/17/22 Montelukast [Singulair*] 10 mg PO DAILY tab 04/17/22 Nifedipine Xl [Procardia Xl*] 30 mg PO BID #60 tab 04/17/22 carvediloL [Coreg*] 25 mg PO BID 6AM 6PM #60 tab 04/17/22 New Medications: carvediloL [Coreg*] 25 mg PO BID 6AM 6PM #60 tab Furosemide [Lasix*] 40 mg PO BIDL #60 tab Nifedipine Xl [Procardia Xl*] 30 mg PO BID #60 tab Calcitrol [Rocaltrol*] 0.25 mcg PO DAILY #30 cap Cholecalciferol (Vitamin D3) [Vitamin D 5,000 IU Cap*] 5,000 unit PO DAILY #30 cap Diet: ADA Activity: Ad brooke Followup: Vitor Lee DO [ACTIVE - CAN ADMIT] - 1 Week Maday Ann NP [Primary Care Provider] - 1-2 Weeks Time spent managing pt's care (in minutes): 37
--- NOTE | 2022-04-17 18:50 | P.CNS ---
Date of Consult: 04/16/22 Reason for Consult: NIKOLAY/ CKD Requesting Physician: Moise Porter Chief Complaint: Hypertensive Urgency History of Present Illness: Patient is a 42-year-old female with a past medical history significant for diabetes, hypertension, CHF, CVA, morbid obesity who presents with complaint of uncontrolled hypertension, nausea and vomiting. Patient reported that her blood sugar has been uncontrolled and has been in the 200s to 300s. Patient reported that her insulin medication was changed to Ozempic and she took 2 units around 8 PM yesterday. 1 hour later patient started having nausea and vomiting that has been ongoing since yesterday. Patient also reports that her blood pressure has been uncontrolled in the last 1 month with systolic SBP in the 200s. Patient reported that she has not been able to follow-up with her PCP due to insurance issues. Patient reports associated signs and symptoms of chills, shortness of breath with exertion and BLE edema. Patient denies any other signs and symptoms. Symptoms are aggravated or relieved by nothing. Patient decided to present to the hospital due to worsening symptoms. 06:45 This 42 yrs old Black Female presents to ER via Ambulatory with complaints of Vomiting, mh7 Medication reaction. 06:45 The patient presents to the emergency department with nausea, that is moderate, mh7 vomiting, that is intermittent, 6 times since the onset of symptoms, described as clear fluid, abdominal pain, of the epigastric area, described as intermittent, vague,\E\ waxing and waning, and does not radiate. Onset: The symptoms/episode began/occurred last night. Possible causes: New diabetes medication. The symptoms are ag gravated by nothing. The symptoms are alleviated by nothing. Associated signs and symptoms: Pertinent negatives: anorexia, belching, constipation, diarrhea, dysuria, fever, flatulence, GI bleeding, hematuria, vaginal discharge. Severity of symptoms: At their worst the symptoms were moderate last night, in the emergency department the symptoms have improved moderately. Allergies No Known Allergies Allergy (Verified 04/10/22 16:48) Home medications list reviewed: Yes Home Medications: Sertraline [Zoloft*] 50 mg PO DAILY 11/16/16 Atorvastatin Calcium [Lipitor] 80 mg PO BEDTIME #0 tab 11/18/16 Albuterol Sulfate [Albuterol Sulfate 0.083% Neb Soln] 0.63 mg NEB Q6HP PRN 04/11/22 Budesonide/Formoterol Fumarate [Symbicort 160-4.5 Mcg Inhaler] 2 puff IH BID 04/11/22 Ezetimibe 10 mg PO DAILY 04/11/22 Insulin Aspart [Novolog Flexpen] 12 unit SQ TIDWM 04/11/22 Levothyroxine Sodium [Levothyroxine] 50 mcg PO AC 04/11/22 Linagliptin [Tradjenta] 5 mg PO DAILY 04/11/22 Calcitrol [Rocaltrol*] 0.25 mcg PO DAILY #30 cap 04/17/22 Carvedilol [Coreg] 25 mg PO BID #60 tablet 04/17/22 Furosemide [Lasix] 40 mg PO BID #60 tablet 04/17/22 Montelukast Sodium [Singulair] 10 mg PO DAILY #30 tablet 04/17/22 Nifedipine Xl [Procardia Xl*] 30 mg PO BID #60 tab 04/17/22 Vit D3/Vit K2/Calc Frutoborate [Move Free Swpih-Ylvvte-[id number]] 1 each PO DAILY #30 tablet 04/17/22 - Past Medical/Surgical History Diabetic: Yes -: HTN -: CVA -: DM II -: CKD IV/ Proteinuria followed by Dr. Lee -: C SECTION -: RIGHT KNEE SURGERY - Family History Mother Medical History: Hypertension, Diabetes Father Medical History: Hypertension, Diabetes, Stroke - Social History Smoking Status: Unknown if ever smoked Alcohol use: Yes CD- Drugs: No Caffeine use: Yes Place of Residence: Home Review of Systems 10-point ROS is otherwise unremarkable General: Weakness Physical Examination Temp Pulse Resp BP Pulse Ox 97.1 F 76 16 128/59 L 100 04/17/22 11:39 04/17/22 11:39 04/17/22 11:39 04/17/22 11:39 04/17/22 11:39 General: In no apparent distress, Oriented x3, Cooperative HEENT: Atraumatic Neck: Supple Respiratory: Clear to auscultation bilaterally Cardiovascular: No edema, Regular rate/rhythm Gastrointestinal: Soft and benign Musculoskeletal: No clubbing, No contractures Integumentary: No rashes, No cyanosis Neurological: Normal speech Blood work reviewed in the chart. Imagings Data: EXAM DESCRIPTION: US - Abdomen Exam Limited - 04/11/2022 10:15 am CLINICAL HISTORY: eval gallbladder/liver, cholelith , gen abd pain Abdominal pain COMPARISON: No comparisons FINDINGS: The gallbladder demonstrates multiple shadowing gallstones. Gallbladder wall is thickened to 9 mm with edema present. The common bile duct is normal measuring 4-5 mm. The liver demonstrates no findings of intrahepatic biliary dilatation. IMPRESSION: Cholelithiasis with sonographic findings suspicious for acute cholecystitis. EXAM DESCRIPTION: CT - Abdomen Pelvis Wo Contrast - 04/10/2022 10:18 am CLINICAL HISTORY: Abdominal pain, acute, nonlocalized COMPARISON: None TECHNIQUE: Axial [address] imaging of the abdomen and pelvis was performed without IV contrast. No IV contrast was given because of allergy, abnormal renal function, patient refusal or physician request. No oral contrast administered. All CT scans are performed using dose optimization technique as appropriate and may include automated exposure control or mA/KV adjustment according to patient size. FINDINGS: Exam has inherent limitation due to body habitus affects. No suspicious findings in the lung bases. Heart size is prominent. No pericardial thickening or effusion. The liver, spleen and pancreas show no suspicious findings on non-contrast imaging. Gallbladder size is normal. No evidence for gallbladder wall thickening or edema. No pericholecystic fluid. Increased density in the fundus of the gallbladder is potentially gallstones. Technical artifact due to body habitus affects would be possible as well. No biliary tree dilatation. No hydronephrosis or suspicious renal mass. No significant adrenal finding. Isodense renal masses and pyelonephritis cannot be excluded in the absence of IV contrast. Mostly contracted urinary bladder shows no suspicious findings. Uterus and ovaries have suspicious finding as well. No dilated bowel loops or bowel wall thickening. The appendix is not well defined. No direct or indirect appendicitis findings. No free air, free fluid or inflammatory stranding. No mass or bulky lymphadenopathy. A 6 centimeter diameter fat only periumbilical hernia is present. No congestion or edema of the herniated fat. No suspicious bony findings. Lower lumbar degenerative changes are present. There is degenerative gas in the L5-S1 disc space. IMPRESSION: Non-contrast enhanced CT abdomen and pelvis imaging show no acute or emergent finding. Slight hyperdensity in the gallbladder fundus could be technical artifact or stones. No wall thickening or edema. No biliary tree abnormality. Full assessment is limited is the absence of IV contrast. Conclusions/Impression: NIKOLAY of unclear etiology. ATN? CKD IV with proteinuria -No NSAIDs Hyponatremia -Encourage nutrition HTN with CKD/ CHF -Continue Coreg Diastolic CHF, chronic -Low sodium diet -Continue Furosemide DM II with CKD -Continue Victoza Moderate malnutrition -Encourage nutrition Anemia in chronic illness -Monitor H&H -Retacrit PRN Case reviewed with Dr. Porter Thank you kindly for the consultation.
== END 2022-04-17 13:20 | disposition home or self-care (01) | DRG 304 ==
LOC: ER 06:21 → ERHOLD 11:58 → 2ND 16:01
PROVIDERS: ADMIT Hospitalist; ATTEND Hospitalist
DX: I16.0 Hypertensive urgency (principal); I50.23 Acute on chronic systolic (congestive) heart failure; N17.0 Acute kidney failure with tubular necrosis; Z68.43 Body mass index [BMI] 50.0-59.9, adult; E87.2 Acidosis; N25.81 Secondary hyperparathyroidism of renal origin; K80.10 Calculus of gallbladder with chronic cholecystitis without obstruction; E87.1 Hypo-osmolality and hyponatremia; I13.0 Hypertensive heart and chronic kidney disease with heart failure and stage 1 through stage 4 chronic kidney disease, or unspecified chronic kidney disease; N18.32 Chronic kidney disease, stage 3b; E78.5 Hyperlipidemia, unspecified; F32.A Depression, unspecified; E66.01 Morbid (severe) obesity due to excess calories; E83.42 Hypomagnesemia; R11.2 Nausea with vomiting, unspecified; T50.995A Adverse effect of other drugs, medicaments and biological substances, initial encounter; T50.1X5A Adverse effect of loop [high-ceiling] diuretics, initial encounter; T47.1X5A Adverse effect of other antacids and anti-gastric-secretion drugs, initial encounter; E11.22 Type 2 diabetes mellitus with diabetic chronic kidney disease; E11.65 Type 2 diabetes mellitus with hyperglycemia; Z91.14 Patient's other noncompliance with medication regimen; Z86.73 Personal history of transient ischemic attack (TIA), and cerebral infarction without residual deficits; Z20.822 Contact with and (suspected) exposure to COVID-19
CPT/HCPCS: 36415; 71045; 74176; 76705; 80048; 80053; 80076; 81003; 81015; 81025; 82306; 82550; 82570; 82947; 83690; 83735; 83880; 83935; 83970; 84100; 84132; 84145; 84156; 84300; 84484; 85025; 85027; 86140; 87086; 87088; 87804; 93005; 93975; 99285; C9113; J0360; J1644; J1815; J1940; J2405; J2550; J3475; J3535; J7040; U0003

== ENCOUNTER 2024-07-29 15:16 | Inpatient (IN) | payer OTHER ==
[2024-07-29 16:49] LABS: Absolute Eosinophils 0.2 K/uL (0-0.5); Absolute Lymphocytes (CBC) 2.3 K/uL (0.7-4.9); Absolute Monocytes 0.7 K/uL (0.1-1.3); Absolute Neutrophil 7.5 K/uL (1.8-8.0); Basophils % 0.3 % (0-1.3); Eosinophils % 1.4 % (0-4.4); Hematocrit 29.6 % (36.0-45.0); Hemoglobin 9.8 g/dL (12.0-15.0); Lymphocytes % 21.1 % (15.3-44.8); MCH 30.1 pg (27.0-35.0); MCHC 33.1 g/dL (32.0-36.0); MCV 90.9 fL (80-100); MPV 7.3 fL (7.6-11.3); Monocytes % 6.9 % (3.3-12.3); Neutrophils % 70.3 % (41.7-73.7); Nucleated Red Blood Cells % 0.1 % (0-0); Platelets 404 thou/uL (152-406); RBC Red Blood Cell Count 3.26 M/uL (3.86-4.86); Red Cell Distribution Width 13.9 % (12.1-15.2)
[2024-07-29 17:09] LABS: ALT/SGPT 18 U/L (13-56); AST/SGOT 12 U/L (15-37); Albumin/Globulin Ratio 0.6 (1.1-1.8); Alkaline Phosphatase 87 U/L (45-117); Anion Gap 12.1 mEq/L (5.0-15.0); BUN Blood Urea Nitrogen 33 mg/dL (7-18); Bicarbonate 21 mEq/L (21-32); Bilirubin Total 0.3 mg/dL (0.2-1.0); Globulin 4.9 g/dL (2.3-3.5); Glomerular Filtration Rate 23 ml/min (=/>90); Glucose Level 107 mg/dL (74-106); Magnesium 1.6 mg/dL (1.6-2.4); NT PRO-BNP 4289 pg/mL (<125); Potassium 4.1 mEq/L (3.5-5.1); Protein, Total 7.9 g/dL (6.4-8.2); Sodium Level 139 mEq/L (136-145); Troponin High Sensitivity 20.1 pg/mL (<58.9)
[2024-07-29 17:15] LABS: PT Prothrombin Time 12.8 SECONDS (9.4-12.5); PTT, Activated Partial Thromb 32.6 SECONDS (24.3-36.9); Protime INR 1.15
[2024-07-29 17:26] LABS: Bilirubin Direct < 0.2 mg/dL (0-0.2); Bilirubin Indirect, Calculated 0.1 mg/dL (0.2-0.8)
[2024-07-29] MEDS ORDERED: FUROSEMIDE 100 MG/10 ML VIAL IV ONE (17:33)
--- NOTE | 2024-07-29 18:06 | ER ---
Nurse's Notes [facility] Name: Mireille Donovan Age: 44 yrs Sex: Female : 1980 Arrival Date: 07/29/2024 Time: 15:16 Bed 18 Private MD: Diagnosis: Right sided weakness;CHF Exacerbation;Non-compliance with medication regimen;Hypertension Presentation: 07/29 15:18 Chief complaint: EMS states: SHORTNESS OF BREATH AND RIGHT SIDED WEAKNESS X 1 WEEK. BP db FOR EMS 220/110. HX OF UNCONTROLLED HTN. DOES NOT TAKE BP MEDICATIONS REGULARLY. BG 141. PT STATES RIGHT ARM TINGLING AND PAIN SINCE SATURDAY. Coronavirus screen: Client denies travel out of the [place] in the last 14 days. At this time, the client does not indicate any symptoms associated with coronavirus-19. Ebola Screen: Patient negative for fever greater than or equal to 101.5 degrees Fahrenheit, and additional compatible Ebola Virus Disease symptoms Patient denies exposure to infectious person. Patient denies travel to an Ebola-affected area in the 21 days before illness onset. No symptoms or risks identified at this time. Initial Sepsis Screen: Does the patient meet any 2 criteria? No. Patient's initial sepsis screen is negative. Does the patient have a suspected source of infection? No. Patient's initial sepsis screen is negative. Risk Assessment: Do you want to hurt yourself or someone else? Patient reports no desire to harm self or others. Onset of symptoms was July 08, 2024. Care prior to arrival: IV initiated. 20 GA, in the right antecubital area. 15:18 Method Of Arrival: EMS: [facility] db 15:18 Acuity: NICOLE 3 db Triage Assessment: 15:24 General: Appears in no apparent distress. comfortable, Behavior is calm, cooperative. db Pain: Complains of pain in right arm. Neuro: Level of Consciousness is awake, alert, obeys commands, Oriented to person, place, time, situation. Respiratory: Onset: The symptoms/episode began/occurred the patient has mild shortness of breath. 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 - Infectious Disease History:: Denies. - Social history:: Smoking status: Patient denies any tobacco usage or history of. Screenin:02 [facility] ED Fall Risk Assessment (Adult) History of falling in the last 3 months, cm10 including since admission No falls in past 3 months (0 pts) Confusion or Disorientation No (0 pts) Intoxicated or Sedated No (0 pts) Impaired Gait Yes (1 pt) Mobility Assist Device Used Yes (1 pt) Altered Elimination No (0 pt) Score/Fall Risk Level 0 - 2 = Low Risk Oriented to surroundings, Maintained a safe environment, Hourly rounding (assess needs \T\ fall precautionary measures) done. Abuse screen: Denies threats or abuse. Denies injuries from another. Nutritional screening: No deficits noted. Tuberculosis screening: No symptoms or risk factors identified. Assessment: 17:01 General: Appears in no apparent distress. comfortable, Behavior is calm, cooperative. cm10 Neuro: No deficits noted. Level of Consciousness is awake, alert, obeys commands, Oriented to person, place, time, situation, Appropriate for age. Cardiovascular: Patient's skin is warm and dry. Rhythm is regular. Respiratory: No deficits noted. Reports shortness of breath Airway is patent Respiratory effort is even, unlabored, Respiratory pattern is regular, symmetrical, Not auscultated. 18:36 Reassessment: Patient appears in no apparent distress at this time. No changes from cm10 previously documented assessment. Patient and/or family updated on plan of care and expected duration. Pain level reassessed. Patient is alert, oriented x 3, equal unlabored respirations, skin warm/dry/pink. 19:15 General: Appears in no apparent distress. Behavior is calm, cooperative, appropriate rg5 for age. Pain: Denies pain. Neuro: Level of Consciousness is awake, alert, obeys commands, Oriented to person, place, time, situation. Cardiovascular: Patient's skin is warm and dry. Rhythm is sinus rhythm. Respiratory: Airway is patent Respiratory effort is even, unlabored, Respiratory pattern is regular, symmetrical. GI: Abdomen is round non-distended. : No signs and/or symptoms were reported regarding the genitourinary system. EENT: No deficits noted. Derm: Skin is intact, Skin is clammy, Skin is normal, Skin temperature is warm. Musculoskeletal: Circulation, motion, and sensation intact. Range of motion: intact in all extremities. 19:31 [place] Swallow Protocol 3 oz Water Swallow Challenge:. Rosa Swallow Protocol Exclusion rg5 Criteria: Exclusion Criteria Result: Brief Cognitive Screen What is your name? Normal, Where are you right now? Normal, What year is it? Normal. Oral Mechanism Examination Facial Symmetry: Normal, Motion: Normal, Lip Closure: Normal, Oral Mechanism Result: Normal. 3 oz Water Swallow Challenge: Pt able to drink all water without stopping, coughing, choking or throat clearing: Yes Result: PASS. 20:30 Reassessment: No changes from previously documented assessment. Patient and/or family rg5 updated on plan of care and expected duration. Pain level reassessed. 21:00 Reassessment: No changes from previously documented assessment. Patient and/or family rg5 updated on plan of care and expected duration. Pain level reassessed. Patient is alert, oriented x 3, equal unlabored respirations, skin warm/dry/pink. 22:33 Reassessment: Patient and/or family updated on plan of care and expected duration. Pain rg5 level reassessed. Patient is alert, oriented x 3, equal unlabored respirations, skin warm/dry/pink. Patient states feeling better. Vital Signs: 15:18 BP 172 / 96; Pulse 99; Resp 18; Temp 98.5; Pulse Ox 100% ; Weight 156.49 kg; Height 5 db ft. 5 in. ; 16:30 BP 166 / 76; Pulse 87; Resp 20; Pulse Ox 100% on R/A; cm10 17:30 BP 171 / 89; Pulse 85; Resp 19; Pulse Ox 100% on R/A; cm10 17:50 BP 162 / 104; Pulse 93; Resp 19; Pulse Ox 100% ; cm10 18:18 BP 160 / 91; Pulse 90; Resp 19; Pulse Ox 100% ; cm10 19:14 BP 175 / 79; Pulse 90; Resp 19; Pulse Ox 100% on R/A; rg5 20:00 BP 173 / 94; Pulse 87; Resp 18; Pulse Ox 99% on R/A; Pain 0/10; rg5 21:30 BP 163 / 64; Pulse 94; Resp 18; Pulse Ox 99% on R/A; Pain 0/10; rg5 15:18 Body Mass Index 57.41 (156.49 kg, 165.1 cm) db 20:00 Pain Scale: Adult rg5 21:30 Pain Scale: Adult rg5 [place] Coma Score: 19:15 Eye Response: spontaneous(4). Motor Response: obeys commands(6). Verbal Response: rg5 oriented(5). Total: 15. ED Course: 15:17 Patient arrived in ED. db 15:24 Triage completed. db 15:24 Arm band placed on Patient placed in waiting room. db 15:41 Mary Pineda MD is Attending Physician. sd2 16:14 Michelle Porter, OTONIEL is Primary Nurse. cm10 16:35 Maintain EMS IV. Dressing intact. Good blood return noted. Site clean \T\ dry. Gauge \T\ cm 10 site: 20g left AC. Flushed with 10 mL NS IV is patent, is intact. 16:40 Initial lab(s) drawn, by me, sent to lab. EKG done, by ED staff, reviewed by Mary Pineda MD. 16:41 Basic Metabolic Panel Sent. cm10 16:41 CBC with Diff Sent. cm10 16:41 Hepatic Function Sent. cm10 16:41 High Sensitivity Troponin Sent. cm10 16:41 Magnesium Sent. cm10 16:41 Protime (+inr) Sent. cm10 16:41 Ptt, Activated Sent. cm10 17:02 Patient has correct armband on for positive identification. Bed in low position. Call cm10 light in reach. Side rails up X2. Client placed on continuous cardiac and pulse oximetry monitoring. NIBP monitoring applied. quality assurance monitor body on. Door closed. Warm blanket given. Pillow given. 17:48 CT Head Brain wo Cont In Process Unspecified. EDMS 18:05 Phil Smith is Hospitalizing Provider. sd2 19:01 Inserted saline lock: 22 gauge in right antecubital area, using aseptic technique. cm10 Flushed with 10 mL NS. 19:01 Removal of peripheral IV. Catheter intact, dressing applied. cm10 19:05 XRAY Chest (1 view) In Process Unspecified. EDMS 19:15 Resting quietly. rg5 19:22 Awaiting bed assignment. rg5 19:22 No provider procedures requiring assistance completed. rg5 19:22 Patient admitted, IV remains in place. intact, bleeding controlled, No redness/swelling rg5 at site. 23:28 Provided Education on: need for admit. rg5 07/30 10:30 Wasserman cath inserted, using sterile technique, 16 Fr., by ED staff, balloon inflated, to bp gravity drainage. 11:24 124 CM met with Ms. Donovan and her daughter at the bedside. Patient identified by name ane and . Demographic sheet confirmed. she lives with her daughter in a ground floor apartment, and that prior to admission, she performs ADLs independently with use of a walker and occasionally a cane. She reports she does not have HH, home oxygen or other medical services at this time. NO MPOA in place. Her preferred plan is to return home upon discharge and states her mother Brianna will transport her home. CM team will continue to follow and coordinate care during hospital stay. Administered Medications: 07/29 17:33 CANCELLED (Physician Discretion): [id number] mg IVP once; give over 2 minutes sd2 18:24 Drug: Furosemide IVP 80 mg IVP once; give over 2 minutes Route: IVP; Site: right cm10 antecubital; 19:01 Follow up: Response: No adverse reaction cm10 Medication: 17:02 VIS not applicable for this client. cm10 Outcome: 18:06 Decision to Hospitalize by Provider. sd2 23:28 Admitted to ER Hold. Please see [facility] for further documentation. rg5 23:28 Condition: stable 23:28 Instructed on the need for admit, 07/30 11:51 Patient left the ED. bp Signatures: Dispatcher [employer] EDMS Dragan Mathew RN RN bp Mary Pineda MD MD sd2 Chelsi Chacon RN RN Michelle Taylor RN RN cm10 Russell Pacheco RN RN rg5 Lashae Jeffrey RN RN ane Corrections: (The following items were deleted from the chart) 07/29 15:24 15:18 Chief complaint: EMS states: SHORTNESS OF BREATH AND RIGHT SIDED WEAKNESS X 1 db WEEK. BP FOR EMS 220/110. HX OF UNCONTROLLED HTN. DOES NOT TAKE BP MEDICATIONS REGULARLY. BG 141. db 15:24 15:18 Pulse 99bpm; Resp 18bpm; Pulse Ox 100%; Temp 98.5F; 156.49 kg; Height 5 ft. 5 db in.; BMI: 57.4; db 15:25 15:24 Arm band placed on Patient placed in an exam room, db db
--- NOTE | 2024-07-29 18:06 | EDPHYS ---
Physician Documentation [facility] Name: Mireille Donovan Age: 44 yrs Sex: Female : 1980 Arrival Date: 07/29/2024 Time: 15:16 Bed 18 Private MD: ED Physician Mary Pineda HPI: 07/29 17:22 This 44 yrs old Black Female presents to ER via EMS with complaints of Shortness Of sd2 Breath, General Weakness. 17:22 44 yo F presents via EMS with CC of R sided weakness and SOB. Reports R sided weakness sd2 started Saturday and has been persistent since then. She did not come to the hospital because she was scared and thought it would go away. She reports hx of prior CVA with just blurred vision. Not currently on ASA or blood thinners as they took her off 4 years ago she reports. She is intermittently compliant with her BP medication. Also endorses some SOB. . 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 - Infectious Disease History:: Denies. - Social history:: Smoking status: Patient denies any tobacco usage or history of. ROS: 17:22 Constitutional: Negative for fever, chills, and weight loss, Eyes: Negative for injury, sd2 pain, redness, and discharge, Cardiovascular: Negative for chest pain, palpitations, and edema, 17:22 Abdomen/GI: Negative for abdominal pain, nausea, vomiting, diarrhea. MS/Extremity: Negative for injury and deformity, Skin: Negative for injury, rash, and discoloration, Neuro: Negative for headache, numbness and tingling. Positive for weakness. 17:22 Respiratory: Positive for shortness of breath, Negative for cough, wheezing, Exam: 17:22 Constitutional: This is a well developed, well nourished patient who is awake, alert, sd2 and in no acute distress. Head/Face: Normocephalic, atraumatic. Eyes: EOMI, normal conjunctiva bilaterally Chest/axilla: Normal chest wall appearance and motion. Nontender with no deformity. Cardiovascular: Regular rate and rhythm with a normal S1 and S2. No gallops, murmurs, or rubs. 2+ distal pulses. Respiratory: Lungs have equal breath sounds bilaterally, clear to auscultation and percussion. No rales, rhonchi or wheezes noted. No increased work of breathing, no retractions or nasal flaring. Abdomen/GI: Soft, non-tender, with normal bowel sounds. No guarding or rebound. No evidence of tenderness throughout. Skin: Warm, dry with normal turgor. Normal color with no rashes, no lesions, and no evidence of cellulitis. MS/ Extremity: Pulses equal, no cyanosis. Neurovascular intact. Full, normal range of motion. Neuro: Awake and alert, GCS 15, oriented to person, place, time, and situation. Cranial nerves II-XII grossly intact. Motor strength 5/5 in LUE/LLE. 4/5 strength to RUE/RLE. Sensory grossly intact. Cerebellar exam normal. Psych: Awake, alert, with orientation to person, place and time. Behavior, mood, and affect are within normal limits. 17:29 ECG was reviewed by the Attending Physician. NSR, rate 87, no STEMI criteria sd2 Vital Signs: 15:18 BP 172 / 96; Pulse 99; Resp 18; Temp 98.5; Pulse Ox 100% ; Weight 156.49 kg; Height 5 db ft. 5 in. ; 16:30 BP 166 / 76; Pulse 87; Resp 20; Pulse Ox 100% on R/A; cm10 17:30 BP 171 / 89; Pulse 85; Resp 19; Pulse Ox 100% on R/A; cm10 17:50 BP 162 / 104; Pulse 93; Resp 19; Pulse Ox 100% ; cm10 18:18 BP 160 / 91; Pulse 90; Resp 19; Pulse Ox 100% ; cm10 19:14 BP 175 / 79; Pulse 90; Resp 19; Pulse Ox 100% on R/A; rg5 20:00 BP 173 / 94; Pulse 87; Resp 18; Pulse Ox 99% on R/A; Pain 0/10; rg5 21:30 BP 163 / 64; Pulse 94; Resp 18; Pulse Ox 99% on R/A; Pain 0/10; rg5 15:18 Body Mass Index 57.41 (156.49 kg, 165.1 cm) db 20:00 Pain Scale: Adult rg5 21:30 Pain Scale: Adult rg5 [place] Coma Score: 19:15 Eye Response: spontaneous(4). Motor Response: obeys commands(6). Verbal Response: rg5 oriented(5). Total: 15. MDM: 15:41 Patient medically screened. sd2 17:22 Differential diagnosis: CVA, ICH, ACS, CHF, COPD, PE among others. Data reviewed: vital sd2 signs, nurses notes, lab test result(s), EKG, radiologic studies. Historians other than the Patient: EMS: provides initial report. Care significantly affected by the following chronic conditions: Diabetes, Hypertension, Congestive Heart Failure, CVA. 18:04 Management of patient was discussed with the following: Hospitalist: Dr. Smith. sd2 Counseling: I had a detailed discussion with the patient and/or guardian regarding the historical points, exam findings, and any diagnostic results supporting the discharge/admit diagnosis, lab results, radiology results, the need for further work-up and treatment in the hospital. ED course: Labs reviewed. BNP elevated. Lasix given. CT head on my review is negative at this time. Creatinine elevated. . 07/29 16:35 Order name: Basic Metabolic Panel; Complete Time: 17:27 sd2 07/29 16:35 Order name: CBC with Diff; Complete Time: 17:27 sd2 07/29 16:35 Order name: Hepatic Function; Complete Time: 17:27 sd2 07/29 16:35 Order name: High Sensitivity Troponin; Complete Time: 17:27 sd2 07/29 16:35 Order name: Magnesium; Complete Time: 17:27 sd2 07/29 16:35 Order name: Protime (+inr); Complete Time: 17:27 sd2 07/29 16:35 Order name: Ptt, Activated; Complete Time: 17:27 sd2 07/29 16:35 Order name: BNP; Complete Time: 17:27 sd2 07/29 19:22 Order name: Basic Metabolic Panel EDMS 07/29 19:22 Order name: Basic Metabolic Panel EDMS 07/29 19:22 Order name: CBC with Automated Diff EDMS 07/29 19:22 Order name: CBC with Automated Diff EDMS 07/29 19:22 Order name: Lipid Profile [facility] 07/29 19:22 Order name: Lipid Profile [facility] 07/29 19:22 Order name: Magnesium [facility] 07/29 19:22 Order name: Magnesium [facility] 07/29 19:22 Order name: Phosphorus [facility] 07/29 19:22 Order name: Phosphorus [facility] 07/29 19:22 Order name: Thyroid Stimulating Hormone [facility] 07/29 19:22 Order name: Thyroid Stimulating Hormone [facility] 07/30 00:35 Order name: Glucose, Ancillary Testing [facility] 07/29 16:35 Order name: CT Head Brain wo Cont; Complete Time: 19:43 sd2 07/29 18:07 Order name: XRAY Chest (1 view); Complete Time: 19:43 07/29 19:22 Order name: Echo with Doppler [facility] 07/29 19:22 Order name: Carotid Artery Bilateral [facility] 07/29 19:22 Order name: Patient Safety Orders [facility] 07/29 19:22 Order name: IRF Screen [facility] 07/29 19:22 Order name: Physical Therapy Consult [facility] 07/29 19:22 Order name: Physical Therapy Consult [facility] 07/29 19:22 Order name: Speech Therapy Consult [facility] 07/29 16:35 Order name: Accucheck; Complete Time: 19:28 sd07/29 16:35 Order name: Cardiac monitoring; Complete Time: 16:59 07/29 16:35 Order name: EKG - Nurse/Tech; Complete Time: 16:59 07/29 16:35 Order name: IV Saline Lock; Complete Time: 16:41 07/29 16:35 Order name: Labs collected and sent; Complete Time: 16:41 07/29 16:35 Order name: NPO; Complete Time: 16:41 07/29 16:35 Order name: O2 Per Protocol; Complete Time: 16:41 07/29 16:35 Order name: O2 Sat Monitoring; Complete Time: 16:41 07/29 16:35 Order name: Stroke Swallow Screen; Complete Time: 19:33 sd2 Administered Medications: 17:33 CANCELLED (Physician Discretion): [id number] mg IVP once; give over 2 minutes sd2 18:24 Drug: Furosemide IVP 80 mg IVP once; give over 2 minutes Route: IVP; Site: right cm10 antecubital; 19:01 Follow up: Response: No adverse reaction cm10 Disposition Summary: 07/29/24 18:06 Hospitalization Ordered Notes: Hospitalization Status: Inpatient Admission sd2 Provider: Phil Smith sd2 Condition: Stable sd2 Problem: new sd2 Symptoms: are unchanged sd2 Bed/Room Type: Standard sd2 Location: Telemetry/MedSurg (Inpatient)(07/30/24 10:58) bd Room Assignment: 231(07/30/24 10:58) bd Diagnosis - Right sided weakness sd2 - CHF Exacerbation sd2 - Non-compliance with medication regimen sd2 - Hypertension sd2 Forms: - Medication Reconciliation Form sd2 - SBAR form sd2 - Leadership Thank You Letter sd2 Signatures: Dispatcher [employer] EDMS Gela Hu Vanessa, RN RN vc1 Mary Pineda MD MD sd2 Chelsi Chacon RN RN db Martinez, Clarissa, RN RN cm10 Mariano Williamson MD MD ec2 Corrections: (The following items were deleted from the chart) 16:36 16:36 BASIC METABOLIC PANEL+C.LAB.BRZ ordered. EDMS EDMS 16:36 16:36 CBC+H.LAB.BRZ ordered. EDVT EDMS 16:36 16:36 HEPATIC FUNCTION+C.LAB.BRZ ordered. EDMS EDMS 16:36 16:36 Troponin High Sensitivity+C.LAB.BRZ ordered. EDVT EDMS 16:36 16:36 MAGNESIUM+C.LAB.BRZ ordered. EDVT EDMS 16:36 16:36 PROTIME (+INR)+COAG.LAB.BRZ ordered. EDMS EDMS 16:36 16:36 PTT, ACTIVATED+COAG.LAB.BRZ ordered. EDMS EDMS 16:36 16:36 PROBNP+C.LAB.BRZ ordered. EDVT EDMS 16:36 16:36 Neck Angio+CT.RAD.BRZ ordered. EDMS EDMS 16:36 16:36 Head Brain Wo Cont+CT.RAD.BRZ ordered. EDMS EDMS 17:33 17:28 Furosemide IVP 60 mg IVP once; give over 2 minutes ordered. sd2 sd2 22:02 18:06 Telemetry/MedSurg (Inpatient) sd2 vc1 22:02 18:06 sd2 vc1 07/30 10:58 07/29 22:02 [facility] vc1 bd 07/30 1058 07/29 22:02 [facility]- vc1 bd
[2024-07-29] MEDS ORDERED: FUROSEMIDE 20 MG/ 2ML VIAL ONE (18:21)
--- NOTE | 2024-07-29 18:43 | RAD REPORT ---
EXAM: Head Brain Wo Cont HISTORY: R sided weakness;Weakness COMPARISON: None TECHNIQUE: Multiple contiguous axial images were obtained for a CT of the brain without contrast. Sag ittal and coronal reformats were performed. One or more of the following dose reduction techniques were used: Automated exposure control, adjus tment of the mA and kV according to patient size, and iterative reconstruction. Unless otherwise specified, incidental findings do not require dedicated imaging follow-up. FINDINGS: No evidence of hydrocephalus, intracranial hemorrhage, or extra-axial fluid collection. Small bilateral foci of basal ganglia hypoattenuation, suggesting small foci of ischemia of indeterm inate age. Small region of cortical near CSF density and volume loss in the right parietal lobe, suggesting sequ narda of remote ischemia. The calvarium is intact. The visualized paranasal sinuses and mastoid air cells are essentially clear . IMPRESSION: Small bilateral basal ganglia foci of hypoattenuation, suggesting small lacunar infarcts of indetermi christopher age. Small right parietal region of encephalomalacia suggesting remote ischemia. No evidence of intracrani al hemorrhage or other acute process.
--- NOTE | 2024-07-29 19:23 | P.HP ---
Certification for Inpatient Patient admitted to: Observation With expected LOS: <2 Midnights Practitioner: I am a practitioner with admitting privileges, knowledge of patient current condition, hospital course, and medical plan of care. Services: Services provided to patient in accordance with Admission requirements found in Title 42 Section 412.3 of the Code of Federal Regulations Patient History Date of Service: 07/29/24 Reason for admission: Right-sided weakness History of Present Illness: 44-year-old morbidly obese woman with a history of diabetes, hypertension, history of CVA in the past presented to the emergency department with a complaint of right-sided weakness and tingling sensation in the right arm which has been present for about 4 days. Patient reports she developed shortness of breath which has progressively gotten worse. She mentions she could not catch her breath so she presented to the emergency department for evaluation. Patient denied any chest pain. At baseline patient is able to ambulate with a cane. She denies any dizziness. Blood work in the emergency department showed elevated BNP and anemia. Chest x-ray showed no acute disease. Patient given a dose of Lasix for CHF exacerbation. She was still complaining of right-sided weakness during my examination in the ED. She is hospitalized for further management. Allergies No Known Allergies Allergy (Verified 04/10/22 16:48) Home Medications: Sertraline [Zoloft*] 50 mg PO DAILY 11/16/16 Atorvastatin Calcium [Lipitor] 80 mg PO BEDTIME #0 tab 11/18/16 Albuterol Sulfate [Albuterol Sulfate 0.083% Neb Soln] 0.63 mg NEB Q6HP PRN 04/11/22 Budesonide/Formoterol Fumarate [Symbicort 160-4.5 Mcg Inhaler] 2 puff IH BID 04/11/22 Ezetimibe 10 mg PO DAILY 04/11/22 Insulin Aspart [Novolog Flexpen] 12 unit SQ TIDWM 04/11/22 Levothyroxine Sodium 50 mcg PO AC 04/11/22 Linagliptin [Tradjenta] 5 mg PO DAILY 04/11/22 Calcitrol [Rocaltrol*] 0.25 mcg PO DAILY #30 cap 04/17/22 Carvedilol [Coreg] 25 mg PO BID #60 tablet 04/17/22 Furosemide [Lasix] 40 mg PO BID #60 tablet 04/17/22 Montelukast Sodium [Singulair] 10 mg PO DAILY #30 tablet 04/17/22 Nifedipine Xl [Procardia Xl*] 30 mg PO BID #60 tab 04/17/22 Vit D3/Vit K2/Calc Frutoborate [Move Free Kwumh-Aflxmg-C7-D3] 1 each PO DAILY #30 tablet 04/17/22 - Past Medical/Surgical History Diabetic: Yes -: HTN -: CVA -: DM II -: CKD IV/ Proteinuria followed by Dr. Lee -: C SECTION -: RIGHT KNEE SURGERY - Family History Mother -: Hypertension, Diabetes Father -: Hypertension, Diabetes, Stroke - Social History Alcohol use: Yes CD- Drugs: No Caffeine use: Yes Review of Systems Other: Patient denied any fever or wheezes or cough. Patient denied any orthopnea, denied chest pain. Except as documented, all other systems reviewed and negative. Physical Examination - Physical Exam General: Alert, In no apparent distress, Oriented x3, Obese HEENT: Mucous membr. moist/pink, Sclerae nonicteric Neck: Supple, JVD not distended Respiratory: Clear to auscultation bilaterally, Normal air movement, Diminished Cardiovascular: Regular rate/rhythm, Normal S1 S2, No murmurs, Edema (Trace bilateral lower extremity edema) Capillary refill: <2 Seconds Gastrointestinal: Normal bowel sounds, Soft and benign, Non-distended, No tenderness Musculoskeletal: No swelling, No tenderness Integumentary: No rashes, No cyanosis Neurological: Normal speech, Normal strength at 5/5 x4 extr, Cranial nerves 3-12 intact Lymphatics: No axilla or inguinal lymphadenopathy - Studies Laboratory Data (last 24 hrs) 07/29/24 07/29/24 07/29/24 16:39 16:39 16:39 WBC 10.70 Hgb 9.8 L Hct 29.6 L Plt Count 404 PT 12.8 H INR 1.15 APTT 32.6 Sodium 139 Potassium 4.1 BUN 33 H Creatinine 2.58 H Glucose 107 H Magnesium 1.6 Total Bilirubin 0.3 AST 12 L ALT 18 Alkaline Phosphatase 87 Assessment and Plan - Problems (Diagnosis) (1) Acute diastolic heart failure Current Visit: No Status: Acute (2) Right sided weakness Current Visit: Yes Status: Acute (3) Hypertension Current Visit: Yes Status: Acute (4) Diabetes Current Visit: No Status: Acute (5) Morbid obesity Current Visit: No Status: Acute - Plan Right-sided weakness History of CVA Right-sided weakness subjective. Placed under observation Given patient risk factors including history of CVA, uncontrolled hypertension and diabetes, does not need to rule out acute CVA. Obtain MRI of the brain Speech therapy and PT consults Obtain carotid duplex Aspirin, Lipitor. Check lipid profile. Echocardiogram Acute on chronic diastolic heart failure Lasix IV Blood pressure control. Obtain echocardiogram. Hypertension Uncontrolled. Resume home antihypertensive-Coreg and nifedipine. Add hydralazine for uncontrolled BP. Hydralazine IV as needed for BP spikes. Diabetes mellitus type 2 Insulin sliding scale for glucose management. Monitor glucose. Continue home dose Premeal aspart insulin. Chronic kidney disease stage III Monitor renal function with diuresis. Nephrology consult. DVT prophylaxis: Heparin SQ Advanced directive: Full code - Advance Directives Does patient have a Living Will: No Does patient have a Durable POA for Healthcare: No
--- NOTE | 2024-07-29 19:32 | RAD REPORT ---
EXAMINATION: ONE VIEW CHEST XR CLINICAL INDICATION: Female, 44 years old.,SOB TECHNIQUE: Frontal chest projection is submitted. Examination is limited by patient positioning and t echnique. COMPARISON: 04/10/2022 FINDINGS: The lungs are well inflated and clear. No pneumothorax or sizable effusion. Moderate cardiomegaly.. IMPRESSION: No acute pulmonary process. Progressive cardiomegaly.
[2024-07-29] MEDS: carvediloL 25 MG TAB PO SCH (20:00)
[2024-07-29] MEDS: NA CHLORIDE 0.9% 1,000 ML IV SCH (20:00)
[2024-07-29] MEDS: DULERA 100/5 (MOMETASONE/FORMOTEROL) INHALER IH SCH (21:00)
[2024-07-29] MEDS: ATORVASTATIN 80 MG TAB PO SCH (21:00)
[2024-07-29] MEDS: NIFEDIPINE XL 30 MG TABLET PO SCH (21:00)
[2024-07-29] MEDS ORDERED: ATORVASTATIN 40 MG TAB ONE (21:21)
[2024-07-29] MEDS ORDERED: HEPARIN 5000 UNIT/ML 1 ML VIAL ONE (21:22)
[2024-07-29] MEDS ORDERED: carvediloL 6.25 MG TAB ONE (21:22)
[2024-07-29 22:40] VITALS: BMI 57.4
--- NOTE | 2024-07-29 23:22 | RAD REPORT ---
US CAROTID DUPLEX BILATERAL CLINICAL INDICATION: [facility] right sided weaknesss TECHNIQUE: Real-time grayscale, color flow, and spectral Doppler sonographic images were obtained of the extracranial carotid system using a linear transducer. Arterial peak systolic velocities are recorded as follows. COMPARISON: No prior exam. FINDINGS: RIGHT: Common carotid artery: 55 cm/s Internal carotid artery: 60 cm/s External carotid artery: 37 cm/s Right ICA/CCA ratio: 1.09 Plaque : Mildly echogenic noncalcified plaque. Vertebral artery: 32 LEFT: Common carotid artery: 45 cm/s Internal carotid artery: 96 cm/s. This is nonspecific but could be related to distal tortuosity. External carotid artery: 44 cm/s Left ICA/CCA ratio: 2.11 Plaque None Vertebral artery: 36 IMPRESSION: No hemodynamically significant stenosis (greater than 50%) within the extracranial internal carotid a rteries. The degrees of stenosis, if any, are quantified according to the consensus statement of the Society o f Radiologists in Ultrasound (SRUS). Please refer to Manuel E, Zenon C, Meenakshi G et al. Carotid Artery Stenosis: [place]-Scale and Doppler US Diagnosis--Society of Radiologists in Ultrasound Consensus Conference. Radiology. 2003;229(2):340-6. doi:10.1148/[id number]
[2024-07-30] MEDS: HEPARIN 5000 UNIT/ML 1 ML VIAL SQ SCH (01:00)
[2024-07-30] MEDS: MAGNESIUM SULFATE 1 gm IVPB 1 GM/100 ML BAG IV ONE (04:39)
[2024-07-30 05:45] LABS: Absolute Basophils 0.1 K/uL (0-0.5); Absolute Eosinophils 0.1 K/uL (0-0.5); Absolute Lymphocytes (CBC) 2.7 K/uL (0.7-4.9); Absolute Monocytes 1.1 K/uL (0.1-1.3); Absolute Neutrophil 6.9 K/uL (1.8-8.0); Basophils % 0.7 % (0-1.3); Eosinophils % 1.2 % (0-4.4); Hematocrit 27.4 % (36.0-45.0); Hemoglobin 8.9 g/dL (12.0-15.0); Lymphocytes % 25.2 % (15.3-44.8); MCHC 32.5 g/dL (32.0-36.0); MCV 92.3 fL (80-100); MPV 7.5 fL (7.6-11.3); Neutrophils % 62.9 % (41.7-73.7); Platelets 366 thou/uL (152-406); RBC Red Blood Cell Count 2.97 M/uL (3.86-4.86); Red Cell Distribution Width 14.1 % (12.1-15.2)
[2024-07-30 06:10] LABS: Magnesium 1.6 mg/dL (1.6-2.4); Phosphorus 3.7 mg/dL (2.5-4.9); Thyroid Stimulating Hormone 2.43 uIU/mL (0.358-3.740)
[2024-07-30] MEDS ORDERED: carvediloL 6.25 MG TAB ONE (06:22)
[2024-07-30] MEDS ORDERED: MAGNESIUM SULFATE 1 gm IVPB 1 GM/100 ML BAG IV ONE (06:44)
[2024-07-30] MEDS: LEVOTHYROXINE SOD 0.075 MG TAB PO SCH (07:30)
[2024-07-30] MEDS: carvediloL 25 MG TAB PO SCH (08:00)
[2024-07-30] MEDS: ASPIRIN EC 81 MG TAB PO SCH (09:00)
[2024-07-30] MEDS: AMLODIPINE 10 MG TAB PO SCH (09:00)
[2024-07-30] MEDS: FUROSEMIDE 40 MG/4 ML VIAL IV SCH (09:00)
[2024-07-30] MEDS ORDERED: EZETIMIBE 10 MG TAB PO SCH (09:00)
[2024-07-30] MEDS ORDERED: MONTELUKAST 10 MG TAB PO SCH (09:00)
[2024-07-30] MEDS ORDERED: ASPIRIN EC 81 MG TAB PO ONE (09:12)
[2024-07-30] MEDS ORDERED: HEPARIN 5000 UNIT/ML 1 ML VIAL ONE (09:59)
[2024-07-30] MEDS ORDERED: AMLODIPINE 10 MG TAB ONE (09:59)
[2024-07-30] MEDS ORDERED: FUROSEMIDE 40 MG/4 ML VIAL ONE (10:00)
--- NOTE | 2024-07-30 12:09 | EKG ---
Test Date: 2024-07-29 Test Time: 16:54:50 Helper Shear Operator: LEV MEASUREMENT RESULTS: Intervals: Rate: 87 TN: 180 QRSD: 94 QT: 388 QTc: 466 [place]: P: 35 TN: 180 QRS: 28 T: 17 INTERPRETIVE STATEMENTS: Normal sinus rhythm Normal ECG Compared to ECG 04/10/2022 07:00:06 Sinus tachycardia no longer present Electronically Signed On 07-30-24 12:07:39 CDT by Evan Pantoja
--- NOTE | 2024-07-30 13:30 | P.PN ---
Subjective Date of Service: 07/30/24 Chief Complaint: Right-sided weakness Pt is resting comfortably in bed. She reports right sided weakness and elevated BNP. pt is getting Lasix. Will f/u MRI. CT head shows suggesting small lacunar infarcts of indeterminate age. Small right parietal region of encephalomalacia suggesting remote ischemia. No acute abnormality. Carotid ultrasound is negative for significant stenosis. No other complaints. Review of Systems General: Unremarkable Eyes: Unremarkable ENT: Unremarkable Respiratory: Unremarkable Cardiovascular: Unremarkable Gastrointestinal: Unremarkable Genitourinary: Unremarkable Musculoskeletal: Unremarkable Integumentary: Unremarkable Neurological: Unremarkable Lymphatics: Unremarkable Physical Examination - Vital Signs Temperature: 98.5 F Blood Pressure: 163/64 Pulse: 94 Respirations: 18 Pulse Ox (%): 98 - Physical Exam General: Alert, In no apparent distress, Oriented x3, Obese HEENT: Atraumatic, Normocephalic, PERRLA Neck: Supple, 2+ carotid pulse no bruit, JVD not distended Respiratory: Clear to auscultation bilaterally, Normal air movement Cardiovascular: No edema, Normal pulses, Regular rate/rhythm, Normal S1 S2 Capillary refill: <2 Seconds Gastrointestinal: Normal bowel sounds, Soft and benign, Non-distended Musculoskeletal: No clubbing, No swelling, No contractures Integumentary: No rashes, No breakdown, No significant lesion Neurological: Normal gait, Normal speech, Abnormal strength (right sided weakness) Lymphatics: No axilla or inguinal lymphadenopathy - Studies Laboratory Data (last 24 hrs) 07/29/24 07/29/24 07/29/24 16:39 16:39 16:39 WBC 10.70 Hgb 9.8 L Hct 29.6 L Plt Count 404 PT 12.8 H INR 1.15 APTT 32.6 Sodium 139 Potassium 4.1 BUN 33 H Creatinine 2.58 H Glucose 107 H Magnesium 1.6 Total Bilirubin 0.3 AST 12 L ALT 18 Alkaline Phosphatase 87 Assessment And Plan - Plan Right-sided weakness: CT head is negative for any acute abnormality but showed small lacunar infarcts of indeterminate age. Small right parietal region of encephalomalacia suggesting remote ischemia. Carotid ultrasound is unremarkable. Will f/u MRI. Continue aspirin and statin. Will f/u MRI brain. Allow permissive htn. Consulted speech therapy and PT. Acute on chronic diastolic heart failure: Will continue lasix 40mg iv BID, strict I/O and daily weight. BNP is 4289. Will f/u Echo. Hypertension: Will allow permissive htn until we r/o CVA. Continue iv hydralazine for BP > 220/120. Diabetes mellitus type 2: Will continue accuchek, SSI and ADA diet. Anemia: Hgb is 8.9. Will monitor H/H. Chronic kidney disease stage III: Cr is 2.9. Will avoid nephrotoxins and monitor renal function. DVT ppx: Heparin SQ Code: Full code
--- NOTE | 2024-07-30 13:49 | ECHO ---
HEIGHT: 5 ft 5 in WEIGHT: 345 lb 0 oz DATE OF STUDY: 07/30/[address]: Phil Smith MD 2-DIMENSIONAL: YES M.MODE: YES DOPPLER: YES COLOR FLOW: YES TDS: PORTABLE: YES DEFINITY: BUBBLE STUDY: DIAGNOSIS: STROKE CARDIAC HISTORY: CATHERIZATION: SURGERY: PROSTHETIC VALVE: PACEMAKER: MEASUREMENTS (cm) DIASTOLIC (NORMALS) SYSTOLIC (NORMALS) IVSd 1.5 (0.6-1.2) LA Diam 2.1 (1.9-4.0) LVEF 60-65% LVIDd 4.0 (3.5-5.7) LVIDs 3.0 (2.0-3.5) %FS 24% LVPWd 1.7 (0.6-1.2) Ao Diam 2.9 (2.0-3.7) 2 DIMENSIONAL ASSESSMENT: RIGHT ATRIUM: NORMAL LEFT ATRIUM: NORMAL RIGHT VENTRICLE: NORMAL LEFT VENTRICLE: MODERATE LEFT VENTRICULAR HYPERTROPHY TRICUSPID VALVE: NORMAL MITRAL VALVE: NORMAL PULMONIC VALVE: NORMAL AORTIC VALVE: NORMAL PERICARDIAL EFFUSION: NONE AORTIC ROOT: NORMAL LEFT VENTRICULAR WALL MOTION: NORMAL DOPPLER/COLOR FLOW: NORMAL COMMENTS: 1. MODERATE LEFT VENTRICULAR HYPERTROPHY 2. NORMAL LEFT VENTRICULAR SYSTOLIC FUNCTION, EJECTION FRACTION 60-65%, NORMAL WALL MOTION 3. NORMAL DIASTOLIC FUCNTION 4. NEGATIVE SALINE BUBBLE STUDY TECHNOLOGIST: OSCAR AGGARWAL/ GIL BEATTY
[2024-07-30] MEDS: ONDANSETRON 4 MG/2 ML VIAL IV PRN (18:31)
[2024-07-30] MEDS: DOXAZOSIN 4 MG TAB PO SCH (20:24)
--- NOTE | 2024-07-30 20:33 | RAD REPORT ---
EXAMINATION: MRI BRAIN WITHOUT CONTRAST CLINICAL INDICATION: r/o CVA TECHNIQUE: Multiplanar multisequence MR images of the brain were obtained without intravenous contras t. Unless otherwise specified, incidental findings do not require dedicated imaging follow-up. COMPARISON: 07/29/2024 FINDINGS: INTRACRANIAL: 13 mm area of restricted diffusion is seen posterior left basal ganglia compatible with acute CVA. No hemorrhagic component. Old infarct noted in the right posterior parietal region. VASCULATURE: Normal signal voids in the larger intracranial arteries and dural venous sinuses. SINUSES: The paranasal sinuses and mastoid air cells are predominantly clear. BONE: The marrow signal pattern is within normal limits. IMPRESSION: 13 mm acute CVA posterior left basal ganglia. No hemorrhage, hydrocephalus or midline shift.
[2024-07-31 06:57] LABS: Absolute Basophils 0.1 K/uL (0-0.5); Absolute Eosinophils 0.2 K/uL (0-0.5); Absolute Lymphocytes (CBC) 3.4 K/uL (0.7-4.9); Absolute Monocytes 0.8 K/uL (0.1-1.3); Basophils % 0.6 % (0-1.3); Eosinophils % 1.7 % (0-4.4); Hematocrit 26.8 % (36.0-45.0); Hemoglobin 8.6 g/dL (12.0-15.0); Lymphocytes % 36.3 % (15.3-44.8); MCH 29.5 pg (27.0-35.0); MCHC 32.1 g/dL (32.0-36.0); MCV 92.1 fL (80-100); MPV 7.7 fL (7.6-11.3); Monocytes % 8.3 % (3.3-12.3); Neutrophils % 53.1 % (41.7-73.7); Platelets 339 thou/uL (152-406); RBC Red Blood Cell Count 2.91 M/uL (3.86-4.86)
[2024-07-31 07:19] LABS: Anion Gap 10.1 mEq/L (5.0-15.0); Magnesium 1.9 mg/dL (1.6-2.4); Potassium 4.1 mEq/L (3.5-5.1)
--- NOTE | 2024-07-31 11:08 | P.PN ---
Subjective Date of Service: 07/31/24 Chief Complaint: Right-sided weakness Pt is resting comfortably in bed. She reports right sided weakness and elevated BNP. pt is getting Lasix. MRI brin shows 13mm acute CVA in left basal ganglia. CT head shows suggesting small lacunar infarcts of indeterminate age. Small right parietal region of encephalomalacia suggesting remote ischemia. No acute abnormality. Carotid ultrasound is negative for significant stenosis. Waiting for Neurology eval. No other complaints. Review of Systems General: Unremarkable Eyes: Unremarkable ENT: Unremarkable Respiratory: Unremarkable Cardiovascular: Unremarkable Gastrointestinal: Unremarkable Genitourinary: Unremarkable Musculoskeletal: Unremarkable Integumentary: Unremarkable Neurological: Weakness Lymphatics: Unremarkable Physical Examination - Vital Signs Temperature: 97.2 F Blood Pressure: 138/68 Pulse: 76 Respirations: 16 Pulse Ox (%): 95 - Physical Exam General: Alert, In no apparent distress, Oriented x3 HEENT: Atraumatic, Normocephalic, PERRLA Neck: Supple, 2+ carotid pulse no bruit, JVD not distended Respiratory: Clear to auscultation bilaterally, Normal air movement Cardiovascular: No edema, Normal pulses, Regular rate/rhythm, Normal S1 S2 Capillary refill: <2 Seconds Gastrointestinal: Normal bowel sounds, Soft and benign, Non-distended Musculoskeletal: No clubbing, No swelling, No contractures Integumentary: No rashes, No breakdown, No significant lesion, No tenderness/swelling Neurological: Normal gait, Normal speech, Abnormal strength Lymphatics: No axilla or inguinal lymphadenopathy Assessment And Plan - Plan Right-sided weakness: CT head is negative for any acute abnormality but showed small lacunar infarcts of indeterminate age. Small right parietal region of encephalomalacia suggesting remote ischemia. Carotid ultrasound is unremarkable. Will f/u MRI. Continue aspirin and statin. MRI brain shows 13mm acute CVA in the left basal ganglia. Consulted speech therapy and PT. Consulted Neurology. Acute on chronic diastolic heart failure: Will continue lasix 40mg iv BID, strict I/O and daily weight. BNP is 4289. Will f/u Echo. Hypertension: Will continue home meds. Continue iv hydralazine for BP > 220/120. Diabetes mellitus type 2: Will continue accuchek, SSI and ADA diet. Anemia: Hgb is 8.6. Will monitor H/H. Chronic kidney disease stage III: Cr is 3.29 <- 2.9. Will avoid nephrotoxins and monitor renal function. DVT ppx: Heparin SQ Code: Full code Dispo: Pending hospital course.
[2024-07-31] MEDS: ACETAMINOPHEN 500 MG TAB PO PRN (14:49)
[2024-08-01 09:07] LABS: Absolute Basophils 0.1 K/uL (0-0.5); Absolute Eosinophils 0.1 K/uL (0-0.5); Absolute Lymphocytes (CBC) 3.1 K/uL (0.7-4.9); Absolute Monocytes 0.9 K/uL (0.1-1.3); Absolute Neutrophil 7.2 K/uL (1.8-8.0); Basophils % 0.5 % (0-1.3); Eosinophils % 0.5 % (0-4.4); Hematocrit 25.6 % (36.0-45.0); Hemoglobin 8.3 g/dL (12.0-15.0); Lymphocytes % 27.5 % (15.3-44.8); MCH 29.5 pg (27.0-35.0); MCHC 32.4 g/dL (32.0-36.0); MCV 91.2 fL (80-100); MPV 7.3 fL (7.6-11.3); Monocytes % 7.8 % (3.3-12.3); Neutrophils % 63.7 % (41.7-73.7); Platelets 316 thou/uL (152-406); Red Cell Distribution Width 14.1 % (12.1-15.2)
[2024-08-01 09:23] LABS: Anion Gap 11.8 mEq/L (5.0-15.0); Potassium 3.8 mEq/L (3.5-5.1)
--- NOTE | 2024-08-01 12:02 | P.PN ---
Subjective Date of Service: 08/01/24 Chief Complaint: Right-sided weakness Pt is resting comfortably in bed. She reports right sided weakness and elevated BNP. pt is getting Lasix. MRI brin shows 13mm acute CVA in left basal ganglia. CT head shows suggesting small lacunar infarcts of indeterminate age. Small right parietal region of encephalomalacia suggesting remote ischemia. No acute abnormality. Carotid ultrasound is negative for significant stenosis. Waiting for Neurology eval. Pt wants to go to inpatient rehab. No other complaints. Review of Systems General: Unremarkable Eyes: Unremarkable ENT: Unremarkable Respiratory: Unremarkable Cardiovascular: Unremarkable Gastrointestinal: Unremarkable Genitourinary: Unremarkable Musculoskeletal: Unremarkable Integumentary: Unremarkable Neurological: Weakness (right sided weakness) Lymphatics: Unremarkable Physical Examination - Vital Signs Temperature: 98.9 F Blood Pressure: 142/66 Pulse: 75 Respirations: 15 Pulse Ox (%): 98 - Physical Exam General: Alert, In no apparent distress, Oriented x3 HEENT: Atraumatic, Normocephalic, PERRLA Neck: Supple, 2+ carotid pulse no bruit Respiratory: Clear to auscultation bilaterally, Normal air movement Cardiovascular: No edema, Normal pulses, Regular rate/rhythm, Normal S1 S2 Capillary refill: <2 Seconds Gastrointestinal: Normal bowel sounds, Soft and benign, Non-distended Musculoskeletal: No clubbing, No swelling, No contractures Integumentary: No rashes, No breakdown, No significant lesion Neurological: Normal gait, Normal speech, Abnormal strength (right sided weakness) Lymphatics: No axilla or inguinal lymphadenopathy Assessment And Plan - Plan Right-sided weakness: CT head is negative for any acute abnormality but showed small lacunar infarcts of indeterminate age. Small right parietal region of encephalomalacia suggesting remote ischemia. Carotid ultrasound is unremarkable. Will f/u MRI. Continue aspirin and statin. MRI brain shows 13mm acute CVA in the left basal ganglia. Consulted speech therapy and PT. Consulted Neurology. Acute on chronic diastolic heart failure: Will continue lasix 40mg iv BID, strict I/O and daily weight. BNP is 4289. Will f/u Echo. Hypertension: Will continue coreg and amlodipine. Diabetes mellitus type 2: Will continue accuchek, SSI and ADA diet. Anemia: Hgb is 8.3<- 8.6. Will monitor H/H. Chronic kidney disease stage III: Cr is 3.41<- 3.29 <- 2.9. Will avoid nephrotoxins and monitor renal function. DVT ppx: Heparin SQ Code: Full code Dispo: Pending hospital course.
[2024-08-02] MEDS: LOPERAMIDE HCL 2 MG CAPSULE PO PRN (20:29)
--- NOTE | 2024-08-03 09:25 | P.PN ---
Date of Service: 08/03/24 Subjective reports right sided weakness and elevated BNP. pt is getting Lasix. MRI brin shows 13mm acute CVA in left basal ganglia. CT head shows suggesting small lacunar infarcts of indeterminate age. Small right parietal region of encephalomalacia suggesting remote ischemia. No acute abnormality. Carotid ultrasound is negative for significant stenosis. Waiting for Neurology eval. Pt wants to go to inpatient rehab. No other complaints. Review of Systems 10 point review of system negative unless listed in HPI Physical Examination - Vital Signs Reviewed - Physical Exam General: Alert, In no apparent distress, Oriented x3 HEENT: Atraumatic, Normocephalic, PERRLA Neck: Supple, 2+ carotid pulse no bruit Respiratory: Clear to auscultation bilaterally, Normal air movement Cardiovascular: No edema, Normal pulses, Regular rate/rhythm, Normal S1 S2 Capillary refill: <2 Seconds Gastrointestinal: Normal bowel sounds, Soft and benign, Non-distended Musculoskeletal: No clubbing, No swelling, R) hemiparesis Integumentary: No rashes, No breakdown, No significant lesion Neurological: Normal gait, Normal speech, Abnormal strength (right sided weakn ess) Lymphatics: No axilla or inguinal lymphadenopathy Assessment And Plan - Plan CVA Right-sided weakness: CT head is negative for any acute abnormality but showed small lacunar infarcts of indeterminate age. Small right parietal region of encephalomalacia suggesting remote ischemia. Carotid ultrasound is unremarkable. Will f/u MRI. Continue aspirin and statin. MRI brain shows 13mm acute CVA in the left basal ganglia. Consulted speech therapy and PT. Consulted Neurology. Acute on chronic diastolic heart failure: Will continue lasix 40mg iv BID, strict I/O and daily weight. BNP is 4289. Will f/u Echo. Hypertension: Will continue coreg and amlodipine. Diabetes mellitus type 2: Will continue accuchek, SSI and ADA diet. Anemia: Hgb is 8.3<- 8.6. Will monitor H/H. Chronic kidney disease stage III: Cr is 3.41<- 3.29 <- 2.9. Will avoid nephrotoxins and monitor renal function. DVT ppx: Heparin SQ Code: Full code Dispo: Pending hospital course. Time with patient 35 minutes <Catalina De La Torre - Last Filed: 08/03/24 09:21> Pt seen and examined. i agree with the note by the SPEECH AND LANGUAGE ASSISTANT. Pt is moving her right extremities more. Waiting for inpatient rehab placement. Continue lasix and other home med for other chronic medical problems. <Jonathan Aranda - Last Filed: 08/03/24 13:00>
--- NOTE | 2024-08-04 08:22 | P.DS ---
Admission Date: 07/30/24 Discharge Date: 08/05/24 Reason for Admission: Right-sided weakness Brief History of Present Illness: 44-year-old morbidly obese woman with a history of diabetes, hypertension, history of CVA in the past presented to the emergency department with a complaint of right-sided weakness and tingling sensation in the right arm which has been present for about 4 days. Patient reports she developed shortness of breath which has progressively gotten worse. She mentions she could not catch her breath so she presented to the emergency department for evaluation. Patient denied any chest pain. At baseline patient is able to ambulate with a cane. She denies any dizziness. Blood work in the emergency department showed elevated BNP and anemia. Chest x-ray showed no acute disease. Patient given a dose of Lasix for CHF exacerbation. She was still complaining of right-sided weakness during my examination in the ED. She is hospitalized for further management. - Physical Exam General: Alert, In no apparent distress, Oriented x3, Obese HEENT: Mucous membr. moist/pink, Sclerae nonicteric Neck: Supple, JVD not distended Respiratory: Clear to auscultation bilaterally, Normal air movement, Diminished Cardiovascular: Regular rate/rhythm, Normal S1 S2, No murmurs, Edema (Trace bilateral lower extremity edema) Capillary refill: <2 Seconds Gastrointestinal: Normal bowel sounds, Soft and benign, Non-distended, No tenderness Musculoskeletal: No swelling, No tenderness Integumentary: No rashes, No cyanosis Neurological: Normal speech, Normal strength at 5/5 x4 extr, Cranial nerves 3-12 intact Hospital Course: 44-year-old morbidly obese woman with a history of diabetes, hypertension, history of CVA in the past presented to the emergency department with a complain t of right-sided weakness and tingling sensation in the right arm which has been present for about 4 days. . She was still complaining of right-sided weakness. She was noted to have acute diastolic heart failure, CVA right-sided weakness, treated with diuretics, PT eval. She is tolerating diet, plan to discharge to alf facility, for rehab approved for 7 days. Assessment Acute diastolic heart failure treated with diuretics, cardura, coreg, continue in rehab CVA right sided weakness, PT to eval, discharged to [facility] nursing facility for PT, Hypertension resume home meds Diabetes type 2 resume home meds Microcytic anemia, trend H&H CKD stage III, trend kidney function, avoid nephrotoxic agents Morbid obesity recommend carb restricted diet Speech therapy recommendations no overt signs of aspiration, recommend carb diet, thin liquids Continue home medicines as previously prescribed GOAL: Clear understanding of disease process INSTRUCTIONS: Physician Discharge Instructions: -Follow-up with PCP in 1 to 2 weeks -Please call Dr. Johnson at [phone] if any questions regarding hospital stay -Please call nursing station at [phone] if any nursing or medication questions -Return to the emergency room if symptoms worsen Diet: ADA, low sodium Activity: Fall precautions <Catalina De La Torre - Last Filed: 08/09/24 06:10> Admission Date: 07/30/24 Discharge Date: 08/05/24 Hospital Course: Patient was seen and examined. Events of the last 24 hours have been noted. Spoke with with DEEP regarding patient's clinical picture after evaluating and examining the patient independently. I performed a substantial part of the MDM during this patient's care today. I personally made or approved the documented management plan and acknowledge its risk of complications. I agree with the findings and documentation provided in the DEEP's notes. <José Johnson - Last Filed: 08/09/24 23:44> Disposition: TRANSFER TO INPATIENT REHAB Discharge Condition: GOOD Vital Signs/Physical Exam: Temp Pulse Resp BP Pulse Ox 97.8 F 70 18 155/70 H 97 08/04/24 04:00 08/04/24 04:00 08/04/24 04:00 08/04/24 04:00 08/04/24 04:00 Laboratory Data at Discharge: WBC 11.30 thou/uL (4.3-10.9) H 08/01/24 08:42 Hgb 8.3 g/dL (12.0-15.0) L 08/01/24 08:42 Hct 25.6 % (36.0-45.0) L 08/01/24 08:42 Plt Count 316 thou/uL (152-406) 08/01/24 08:42 PT 12.8 SECONDS (9.4-12.5) H 07/29/24 16:39 INR 1.15 07/29/24 16:39 APTT 32.6 SECONDS (24.3-36.9) 07/29/24 16:39 Sodium 138 mEq/L (136-145) 08/01/24 08:42 Potassium 3.8 mEq/L (3.5-5.1) 08/01/24 08:42 BUN 38 mg/dL (7-18) H 08/01/24 08:42 Creatinine 3.41 mg/dL (0.55-1.02) H 08/01/24 08:42 Glucose 93 mg/dL (74-106) 08/01/24 08:42 Phosphorus 3.7 mg/dL (2.5-4.9) 07/30/24 05:35 Magnesium 1.9 mg/dL (1.6-2.4) 07/31/24 06:37 Total Bilirubin 0.3 mg/dL (0.2-1.0) 07/29/24 16:39 AST 12 U/L (15-37) L 07/29/24 16:39 ALT 18 U/L (13-56) 07/29/24 16:39 Alkaline Phosphatase 87 U/L (45-117) 07/29/24 16:39 Triglycerides 125 mg/dL (<150) 07/30/24 05:35 Cholesterol 176 mg/dL (<200) 07/30/24 05:35 HDL Cholesterol 36 mg/dL (40-60) L 07/30/24 05:35 Cholesterol/HDL Ratio 4.89 07/30/24 05:35 <Catalina De La Torre - Last Filed: 08/09/24 06:10> Vital Signs/Physical Exam: Temp Pulse Resp BP Pulse Ox 97.3 F 81 20 132/78 98 08/05/24 12:00 08/05/24 12:00 08/05/24 12:00 08/05/24 12:00 08/05/24 12:00 Laboratory Data at Discharge: WBC 11.30 thou/uL (4.3-10.9) H 08/01/24 08:42 Hgb 8.3 g/dL (12.0-15.0) L 08/01/24 08:42 Hct 25.6 % (36.0-45.0) L 08/01/24 08:42 Plt Count 316 thou/uL (152-406) 08/01/24 08:42 PT 12.8 SECONDS (9.4-12.5) H 07/29/24 16:39 INR 1.15 07/29/24 16:39 APTT 32.6 SECONDS (24.3-36.9) 07/29/24 16:39 Sodium 138 mEq/L (136-145) 08/01/24 08:42 Potassium 3.8 mEq/L (3.5-5.1) 08/01/24 08:42 BUN 38 mg/dL (7-18) H 08/01/24 08:42 Creatinine 3.41 mg/dL (0.55-1.02) H 08/01/24 08:42 Glucose 93 mg/dL (74-106) 08/01/24 08:42 Phosphorus 3.7 mg/dL (2.5-4.9) 07/30/24 05:35 Magnesium 1.9 mg/dL (1.6-2.4) 07/31/24 06:37 Total Bilirubin 0.3 mg/dL (0.2-1.0) 07/29/24 16:39 AST 12 U/L (15-37) L 07/29/24 16:39 ALT 18 U/L (13-56) 07/29/24 16:39 Alkaline Phosphatase 87 U/L (45-117) 07/29/24 16:39 Triglycerides 125 mg/dL (<150) 07/30/24 05:35 Cholesterol 176 mg/dL (<200) 07/30/24 05:35 HDL Cholesterol 36 mg/dL (40-60) L 07/30/24 05:35 Cholesterol/HDL Ratio 4.89 07/30/24 05:35 <José Johnson - Last Filed: 08/09/24 23:44> Diet: AHA Activity: Fall precautions Time spent managing pt's care (in minutes): 55 <Catalina De La Torre - Last Filed: 08/09/24 06:10> <José Johnson - Last Filed: 08/09/24 23:44> Home Medications: Sertraline [Zoloft*] 100 mg PO DAILY 11/16/16 Atorvastatin Calcium [Lipitor] 80 mg PO BEDTIME #0 tab 11/18/16 Albuterol Sulfate [Albuterol Sulfate 0.083% Neb Soln] 0.63 mg NEB Q6HP PRN 04/11/22 Budesonide/Formoterol Fumarate [Symbicort 160-4.5 Mcg Inhaler] 2 puff IH BID 04/11/22 Insulin Aspart [Novolog Flexpen] 12 unit SQ TIDWM 04/11/22 Linagliptin [Tradjenta] 5 mg PO DAILY 04/11/22 Calcitrol [Rocaltrol*] 0.25 mcg PO DAILY #30 cap 04/17/22 Montelukast Sodium [Singulair] 10 mg PO DAILY #30 tablet 04/17/22 Vit D3/Vit K2/Calc Frutoborate [Move Free Ikhei-Rldemj-[id number]] 1 each PO DAILY #30 tablet 04/17/22 carvediloL [Coreg] 25 mg PO BID #60 tablet 04/17/22 Amlodipine [Norvasc*] 10 mg PO DAILY 07/30/24 Bumetanide 2 mg PO DAILY 07/30/24 Doxazosin [Cardura*] 4 mg PO BEDTIME 07/30/24 Levothyroxine [Synthroid*] 75 mcg PO [id number] 07/30/24 Metformin ER [Glucophage ER*] 500 mg PO DAILY AT SUPPER 07/30/24 Tirzepatide [Mounjaro] 5 mg SQ Q7D 07/30/24 Physician Discharge Instructions: Transfer to inpatient rehab Followup: Ventura Kunz MD [ASSOCIATE-ACTIVE - CAN ADMIT] - 1-2 Weeks Marc Perez MD [Primary Care Provider] -
[2024-08-05 11:01] VITALS: O2SAT 96
[2024-08-05 13:50] VITALS: BP 132/78; TEMP 97.3
--- NOTE | 2024-08-09 06:16 | P.PN ---
Date of Service: 08/04/24 Subjective pending rehab bed, CVA working PT Review of Systems 10 point review of system negative unless listed in HPI Physical Examination - Vital Signs Reviewed - Physical Exam General: Alert, In no apparent distress, Oriented x3 HEENT: Atraumatic, Normocephalic, PERRLA Neck: Supple, 2+ carotid pulse no bruit Respiratory: Clear to auscultation bilaterally, Normal air movement Cardiovascular: No edema, Normal pulses, Regular rate/rhythm, Normal S1 S2 Capillary refill: <2 Seconds Gastrointestinal: Normal bowel sounds, Soft and benign, Non-distended Musculoskeletal: No clubbing, No swelling, R) hemiparesis Integumentary: No rashes, No breakdown, No significant lesion Neurological: Normal gait, Normal speech, Abnormal strength (right sided weakness) Lymphatics: No axilla or inguinal lymphadenopathy Assessment And Plan - Plan CVA Right-sided weakness: CT head is negative for any acute abnormality but showed small lacunar infarcts of indeterminate age. Small right parietal region of encephalomalacia suggesting remote ischemia. Carotid ultrasound is unremarkable. Will f/u MRI. Continue aspirin and statin. MRI brain shows 13mm acute CVA in the left basal ganglia. Consulted speech therapy and PT. Consulted Neurology. Acute on chronic diastolic heart failure: Will continue lasix 40mg iv BID, strict I/O and daily weight. BNP is 4289. Will f/u Echo. Hypertension: Will continue coreg and amlodipine. Diabetes mellitus type 2: Will continue accuchek, SSI and ADA diet. Anemia: Hgb is 8.3<- 8.6. Will monitor H/H. Chronic kidney disease stage III: Cr is 3.41<- 3.29 <- 2.9. Will avoid nephrotoxins and monitor renal function. DVT ppx: Heparin SQ Code: Full code Dispo: Pending hospital course. Time with patient 35 minutes <Catalina De La Torre - Last Filed: 08/09/24 06:14> Patient was seen and examined. Events of the last 24 hours have been noted. Spoke with with DEEP regarding patient's clinical picture after evaluating and examining the patient independently. I performed a substantial part of the MDM during this patient's care today. I personally made or approved the documented management plan and acknowledge its risk of complications. I agree with the findings and documentation provided in the DEEP's notes. <José Johnson - Last Filed: 08/09/24 23:44>
--- NOTE | 2024-08-09 23:43 | P.PN ---
Date of Service: 08/02/24 Subjective Patient continues to do well with no new complaints. Patient's clinical symptoms are stable. Awaiting for placement to inpatient rehab. Physical Examination - Vital Signs Reviewed - Physical Exam General: Alert, In no apparent distress, Oriented x3 Respiratory: Clear to auscultation bilaterally, Normal air movement Cardiovascular: regular rate/rhythm, Normal S1 S2 Gastrointestinal: Normal bowel sounds, Soft and benign, Non-distended Musculoskeletal: No clubbing, No swelling, Rt hemiparesis Neurological: Patient with generalized right-sided weakness but otherwise no focal deficits Assessment And Plan - Assessment/Plan CVA Right-sided weakness: MRI with an acute infarct; continue with anti-platelet therapy and statin therapy. Inpatient rehab was speech in PT. Acute on chronic diastolic heart failure: Will continue lasix 40mg iv BID, strict I/O and daily weight. BNP is 4289. Will f/u Echo. Hypertension: Will continue coreg and amlodipine. Diabetes mellitus type 2: Will continue accuchek, SSI and ADA diet. Anemia: Will monitor H/H. Chronic kidney disease stage III: Continue monitoring renal function closely. DVT ppx: Heparin SQ
== END 2024-08-05 12:49 | DRG 64 ==
LOC: ER 15:16 → ERHOLD 19:10 → 2ND 07-30 11:27 → OBSVTOIN 07-30 20:48
PROVIDERS: ADMIT Internal Medicine; ATTEND Hospitalist
PROC: 0T9B70Z Drainage of Bladder with Drainage Device, Via Natural or Artificial Opening (ICD-10-PCS; principal; 2024-07-30)
DX: I63.9 Cerebral infarction, unspecified (principal); I50.33 Acute on chronic diastolic (congestive) heart failure; I13.0 Hypertensive heart and chronic kidney disease with heart failure and stage 1 through stage 4 chronic kidney disease, or unspecified chronic kidney disease; N17.9 Acute kidney failure, unspecified; Z68.43 Body mass index [BMI] 50.0-59.9, adult; G81.91 Hemiplegia, unspecified affecting right dominant side; N18.30 Chronic kidney disease, stage 3 unspecified; E11.22 Type 2 diabetes mellitus with diabetic chronic kidney disease; D63.1 Anemia in chronic kidney disease; D50.9 Iron deficiency anemia, unspecified; E66.09 Other obesity due to excess calories; E03.9 Hypothyroidism, unspecified; Z79.4 Long term (current) use of insulin; Z79.84 Long term (current) use of oral hypoglycemic drugs; Z86.73 Personal history of transient ischemic attack (TIA), and cerebral infarction without residual deficits; Z79.890 Hormone replacement therapy; Z79.899 Other long term (current) drug therapy; Z91.148 Patient's other noncompliance with medication regimen for other reason
CPT/HCPCS: 36415; 51702; 70450; 70551; 71045; 80048; 80061; 80076; 82947; 83735; 83880; 84100; 84443; 84484; 85025; 85610; 85730; 92610; 93005; 93306; 93880; 94760; 96374; 97110; 97116; 97161; 97165; 97530; 99285; G0378; J1644; J1940; J2405; J3475; J3535; J7030

== ENCOUNTER 2024-08-05 11:20 | Inpatient (IN) | payer OTHER ==
[2024-08-05] MEDS ORDERED: ACETAMINOPHEN 500 MG TAB PO PRN ×2 (13:27→16:49)
[2024-08-05] MEDS ORDERED: DOCUSATE NA/SENNA CONC 1 TAB PO PRN (13:29)
[2024-08-05] MEDS ORDERED: ALBUTEROL 2.5 MG/3 ML NEB SOL NEB PRN (13:29)
[2024-08-05 13:40] VITALS: BMI 57.8
[2024-08-05] MEDS: INSULIN REGULAR (HUMAN) 100 UNIT/ML SQ SCH (16:30)
[2024-08-05] MEDS: carvediloL 25 MG TAB PO SCH (17:46)
[2024-08-05] MEDS: MELATONIN 3 MG TABLET PO PRN (19:46)
[2024-08-05] MEDS: BUDESONIDE IH SCH (19:47)
[2024-08-05] MEDS: ATORVASTATIN 80 MG TAB PO SCH (19:47)
[2024-08-05] MEDS: DOXAZOSIN 4 MG TAB PO SCH (19:47)
[2024-08-05] MEDS: FORMOTEROL IH SCH (19:47)
[2024-08-05] MEDS: HEPARIN 5000 UNIT/ML 1 ML VIAL SQ SCH (19:48)
[2024-08-05 20:41] LABS: Specific Gravity 1.011 (1.005-1.030); Sqamous Epithelial <5 /HPF (None Seen); Urine Bacteria <20 /HPF (<20); Urine Bilirubin NEGATIVE (Negative); Urine Blood 1+ (Negative); Urine Clarity Extremely Turbid (Clear); Urine Color Light-Yellow (Yellow); Urine Crystals Unidentified Few /HPF (None Seen); Urine Culture Reflex Order REFLEXED; Urine Glucose NEGATIVE (Negative); Urine Ketones NEGATIVE (Negative); Urine Micro Reflex YN NO BILL MICROSCOPIC; Urine Mucus Slight /HPF (None Seen); Urine Nitrite NEGATIVE (Negative); Urine Protein 1+ (Negative); Urine Urobilinogen Normal (Normal); Urine WBC >50 /HPF (<5); Urine WBC Clump Moderate /HPF (None Seen); Urine pH 5.5 (5.0-7.0)
[2024-08-06] MEDS: LEVOTHYROXINE SOD 0.075 MG TAB PO SCH (05:14)
[2024-08-06 06:32] LABS: Absolute Basophils 0.1 K/uL (0-0.5); Absolute Eosinophils 0.3 K/uL (0-0.5); Absolute Lymphocytes (CBC) 3.6 K/uL (0.7-4.9); Absolute Neutrophil 6.1 K/uL (1.8-8.0); Basophils % 0.5 % (0-1.3); Eosinophils % 2.4 % (0-4.4); Hematocrit 25.5 % (36.0-45.0); Hemoglobin 8.4 g/dL (12.0-15.0); Lymphocytes % 32.6 % (15.3-44.8); MCH 30.3 pg (27.0-35.0); MCV 91.8 fL (80-100); MPV 7.9 fL (7.6-11.3); Monocytes % 9.1 % (3.3-12.3); Neutrophils % 55.4 % (41.7-73.7); Nucleated Red Blood Cells % 0.1 % (0-0); Platelets 333 thou/uL (152-406); RBC Red Blood Cell Count 2.78 M/uL (3.86-4.86); Red Cell Distribution Width 14.2 % (12.1-15.2)
[2024-08-06 06:56] LABS: Albumin 2.9 g/dL (3.4-5.0); Anion Gap 9.8 mEq/L (5.0-15.0); Magnesium 1.6 mg/dL (1.6-2.4); Potassium 3.8 mEq/L (3.5-5.1); Prealbumin 15.8 mg/dL (20-40)
[2024-08-06] MEDS ORDERED: AMLODIPINE 10 MG TAB PO SCH (08:00)
[2024-08-06] MEDS: LINAGLIPTIN 5 MG PO SCH (08:00)
[2024-08-06] MEDS: [UNRECOGNIZED DRUG - OTHER] PO SCH (08:00)
[2024-08-06] MEDS: CALCITROL 0.25 MCG CAP PO SCH (09:18)
[2024-08-06] MEDS: SERTRALINE HCL 100 MG TAB PO SCH (09:19)
[2024-08-06] MEDS: CLOPIDOGREL 75 MG TABLET PO SCH (09:19)
[2024-08-06] MEDS: MONTELUKAST 10 MG TAB PO SCH (09:19)
[2024-08-06] MEDS: METFORMIN ER 500 MG TAB PO SCH (09:19)
[2024-08-06] MEDS: CRANBERRY FRUIT EXTRACT 200 MG CAP PO SCH (09:19)
[2024-08-06] MEDS: ASPIRIN EC 81 MG TAB PO SCH (09:19)
[2024-08-06] MEDS: BUMETANIDE 1 MG TABLET PO SCH (09:20)
--- NOTE | 2024-08-06 10:16 | P.CNS ---
Date of Consult: 08/06/24 Reason for Consult: NIKOLAY/ CKD Requesting Physician: Ventura Kunz Chief Complaint: Right hemiparesis History of Present Illness: 44-year-old morbidly obese woman with a history of diabetes, hypertension, history of CVA in the past presented to the emergency department with a complaint of right-sided weakness and tingling sensation in the right arm which has been present for about 4 days. Patient reports she developed shortness of breath which has progressively gotten worse. She mentions she could not catch her breath so she presented to the emergency department for evaluation. Patient denied any chest pain. At baseline patient is able to ambulate with a cane. She denies any dizziness. Blood work in the emergency department showed elevated BNP and anemia. Chest x-ray showed no acute disease. Patient given a dose of Lasix for CHF exacerbation. She was still complaining of right-sided weakness during my examination in the ED. She is hospitalized for further management. [id number] 17:22 This 44 yrs old Black Female presents to ER via EMS with complaints of Shortness Of sd2 Breath, General Weakness. 17:22 44 yo F presents via EMS with CC of R sided weakness and SOB. Reports R sided weakness sd2 started Saturday and has been persistent since then. She did not come to the hospital because she was scared and thought it would go away. She reports hx of prior CVA with just blurred vision. Not currently on ASA or blood thinners as they took her off 4 years ago she reports. She is intermittently compliant with her BP medication. Also endorses some SOB. Allergies No Known Allergies Allergy (Verified 04/10/22 16:48) Home medications list reviewed: Yes Home Medications: Sertraline [Zoloft*] 100 mg PO DAILY 11/16/16 Atorvastatin Calcium [Lipitor] 80 mg PO BEDTIME #0 tab 11/18/16 Albuterol Sulfate [Albuterol Sulfate 0.083% Neb Soln] 0.63 mg NEB Q6HP PRN 04/11/22 Budesonide/Formoterol Fumarate [Symbicort 160-4.5 Mcg Inhaler] 2 puff IH BID 04/11/22 Insulin Aspart [Novolog Flexpen] 12 unit SQ TIDWM 04/11/22 Linagliptin [Tradjenta] 5 mg PO DAILY 04/11/22 Calcitrol [Rocaltrol*] 0.25 mcg PO DAILY #30 cap 04/17/22 Carvedilol [Coreg] 25 mg PO BID #60 tablet 04/17/22 Montelukast Sodium [Singulair] 10 mg PO DAILY #30 tablet 04/17/22 Vit D3/Vit K2/Calc Frutoborate [Move Free [id number]-Iserrr-J8-D3] 1 each PO DAILY #30 tablet 04/17/22 Amlodipine [Norvasc*] 10 mg PO DAILY 07/30/24 Bumetanide 2 mg PO DAILY 07/30/24 Doxazosin [Cardura*] 4 mg PO BEDTIME 07/30/24 Levothyroxine [Synthroid*] 75 mcg PO [id number] 07/30/24 Metformin ER [Glucophage ER*] 500 mg PO DAILY AT SUPPER 07/30/24 Tirzepatide [Mounjaro] 5 mg SQ Q7D 07/30/24 - Past Medical/Surgical History Diabetic: Yes -: HTN -: CVA -: DM II -: CKD IV/ Proteinuria (Dr. Lee/ Redd) -: C SECTION -: RIGHT KNEE SURGERY - Family History Mother Medical History: Hypertension, Diabetes Father Medical History: Hypertension, Diabetes, Stroke - Social History Smoking Status: Unknown if ever smoked Alcohol use: No CD- Drugs: No Caffeine use: Yes Place of Residence: Home Review of Systems 10-point ROS is otherwise unremarkable Respiratory: SOB with Excertion Neurological: Weakness Physical Examination Temp Pulse Resp BP Pulse Ox 96.9 F 69 16 131/49 L 100 08/06/24 06:52 08/06/24 09:20 08/06/24 06:52 08/06/24 09:20 08/06/24 06:52 General: In no apparent distress, Oriented x3, Cooperative, Obese HEENT: Atraumatic Neck: Supple Respiratory: Clear to auscultation bilaterally, Normal air movement Cardiovascular: No edema, Regular rate/rhythm Gastrointestinal: Soft and benign, Non-distended Musculoskeletal: No clubbing, No contractures Integumentary: No rashes, No cyanosis Neurological: Normal speech Laboratory Data (last 24 hrs) 08/06/24 08/06/24 08/06/24 05:46 05:46 05:00 WBC 10.90 Hgb 8.4 L Hct 25.5 L Plt Count 333 Sodium 140 Potassium 3.8 BUN 51 H Creatinine 3.15 H Glucose 89 Magnesium 1.6 Cancelled Imagings Data: [id number] EXAMINATION: ONE VIEW CHEST XR CLINICAL INDICATION: Female, 44 years old.,SOB TECHNIQUE: Frontal chest projection is submitted. Examination is limited by patient positioning and technique. COMPARISON: 04/10/2022 FINDINGS: The lungs are well inflated and clear. No pneumothorax or sizable effusion. Moderate cardiomegaly.. IMPRESSION: No acute pulmonary process. Progressive cardiomegaly. [id number] LEFT VENTRICULAR WALL MOTION: NORMAL DOPPLER/COLOR FLOW: NORMAL COMMENTS: 1. MODERATE LEFT VENTRICULAR HYPERTROPHY 2. NORMAL LEFT VENTRICULAR SYSTOLIC FUNCTION, EJECTION FRACTION 60-65%, NORMAL WALL MOTION 3. NORMAL DIASTOLIC FX 4. NEGATIVE SALINE BUBBLE STUDY [id number] US CAROTID DUPLEX BILATERAL CLINICAL INDICATION: [facility] MAIN right sided weaknesss TECHNIQUE: Real-time grayscale, color flow, and spectral Doppler sonographic images were obtained of the extracranial carotid system using a linear transducer. Arterial peak systolic velocities are recorded as follows. COMPARISON: No prior exam. FINDINGS: RIGHT: Common carotid artery: 55 cm/s Internal carotid artery: 60 cm/s External carotid artery: 37 cm/s Right ICA/CCA ratio: 1.09 Plaque : Mildly echogenic noncalcified plaque. Vertebral artery: 32 LEFT: Common carotid artery: 45 cm/s Internal carotid artery: 96 cm/s. This is nonspecific but could be related to distal tortuosity. External carotid artery: 44 cm/s Left ICA/CCA ratio: 2.11 Plaque None Vertebral artery: 36 IMPRESSION: No hemodynamically significant stenosis (greater than 50%) within the extracranial internal carotid arteries. [address] EXAMINATION: MRI BRAIN WITHOUT CONTRAST CLINICAL INDICATION: r/o CVA TECHNIQUE: Multiplanar multisequence MR images of the brain were obtained without intravenous contrast. Unless otherwise specified, incidental findings do not require dedicated imaging follow-up. COMPARISON: 07/29/2024 FINDINGS: INTRACRANIAL: 13 mm area of restricted diffusion is seen posterior left basal ganglia compatible with acute CVA. No hemorrhagic component. Old infarct noted in the right posterior parietal region. VASCULATURE: Normal signal voids in the larger intracranial arteries and dural venous sinuses. SINUSES: The paranasal sinuses and mastoid air cells are predominantly clear. BONE: The marrow signal pattern is within normal limits. IMPRESSION: 13 mm acute CVA posterior left basal ganglia. No hemorrhage, hydrocephalus or midline shift. Conclusions/Impression: Stage I NIKOLAY may be multifactorial CKD IV with Proteinuria -No NSAIDs HTN with CKD -Continue Coreg & Doxazosin -Continue Amlodipine Peripheral Edema -Continue Bumetanide DM II with CKD -RISS -Continue Tradjenta -Continue Mounjaro -Hold Metformin Anemia in chronic illness -Monitor H&H -Retacrit X1 -Continue oral iron CKD MBD Secondary HyperParathyroidism -Continue Calcitriol Acute Cystitis with Hematuria -Follow up urine culture -Continue cranberry tab Recent hospital admission reviewed Thank you kindly for the consultation
--- NOTE | 2024-08-06 11:03 | HP ---
Date of Admission: 08/05/2024 Time Of Service: 1:30 p.m. Chief Complaint: "I had a second stroke and arms are weak." History Of Present Illness: Ms. Donovan is a 44-year-old patient with hypertension, diabetes mellitus type 2, morbid obesity, chronic kidney disease stage 3, who is on anticoagulation therapy and on 07/06 5 developed right-sided weakness and tingling in the arm. She did not immediately seek medical atten tion. Four days later with progressive shortness of breath, she came to the emergency room and was f ound to have a 13 mm acute stroke in left basal ganglia. She also had identified a chronic stroke in the right posterior parietal region. in diastolic heart failure, which is chronic. Of c ourse, hypertension, diabetes, and anemia. She did receive anticoagulation and IV fluids, and fluid management with Lasix. She was evaluated by Speech, Physical, and Occupational Therapy. She was fou nd to be incontinent of urine. Had need for contact guard assistance for going from a [id number]-az-[id number] position. Minimum assistance for sit to stand with loss of balance noted. With ambulation, she was at the contact guard level at 60 feet rolling walker. She was minimum assistance for toil eting, showering, bathroom transfers. As she was functioning well below her baseline level prior to her stroke, she was determined to be a good patient for aggressive inpatient rehabilitation to help h er return to her prior level of functioning and reduce risk of re-hospitalization along with gross ma nagement of her comorbid conditions. Past Surgical History: Right knee surgery. Studies: Carotid artery ultrasound on 07/29 shows no hemodynamically significant stenosis greater th an 50% in the external and internal carotid arteries. CT scan of the head on 07/29 shows small bilat eral basal ganglia foci of hypoattenuation suggesting small lacunar infarcts of indeterminate age. H owever, the right parietal region of encephalomalacia AV node infarct. No hemorrhagic con version seen. Chest x-ray on 07/29 shows no acute cardiopulmonary processes. Brain MRI on 07/30 donta ws a 13 mm acute CVA in the right basal ganglia and old stroke was noted on the right. EKG, on 07/29, shows normal sinus rhythm, normal study. The echocardiogram on 07/29 shows moderate left vent ricular hypertrophy. Normal left ventricular systolic function. Ejection fraction 60% to 65%. Norm al wall motion. Normal diastolic function. Negative saline bubble study. Current Medications: Tylenol 500 mg every 4 hours as needed, albuterol nebulizer 2.5 mg every 6 hour s, Norvasc 10 mg daily, aspirin 81 mg daily, Lipitor 80 mg at bedtime, Bumex 2 mg daily, Rocaltrol 0. 25 mg daily, heparin 5000 units subcutaneously daily, Synthroid 0.075 mg daily, melatonin 3 mg at bed time, metformin 500 mg daily, Singulair 10 mg daily, Senokot-S 2 at bedtime, Zoloft 100 mg daily. Family History: Denies history of stroke or myocardial infarction in the family. Review of Systems: Diffuse weakness on the right more than left, difficulty with gait and balance. Otherwise, she denie s any significant pain. No myalgias, arthralgias, or rash. No psychiatric complaints. No incontine nce of urine noted. Laboratory Studies: White blood cell count 11.3, neutrophils 62.7, hemoglobin 8.3, platelets 316. I NR 1.15. Sodium 140, potassium 4, chloride 107, carbon dioxide 23, BUN 38, creatinine 3.41, glucose ranged from 93 to 104, calcium 9.0. Beta-natriuretic peptide 4289. HDL cholesterol 36, cholesterol to HDL ratio was 4.89, and LDL cholesterol 115. Current Level Of Functioning: Ms. Donovan requires set up assistance for eating, oral hygiene. Modera te assistance for toileting, showering. For upper body dressing, she is at a contact guard assistanc e. Lower body dressing, moderate assistance. Donning and doffing footwear at moderate assistance le madi. Rolling from hfmw-ix-obdih and gfcgb-wn-evax from sitting to lying and lying to sitting on side of bed moderate to contact guard assistance. Transferring from bed to chair to commode, moderate as sistance. Ambulation is moderate assistance with a rolling walker, she covered 60 feet. Physical Examination: Vital Signs: Blood pressure 115/67, pulse 82, respiratory rate 18, temperature 97.2, oxygen saturati on 97%. General: She is sitting on the side of the bed with therapist working with her. She is morbidly obe se. HEENT: She appears normocephalic, atraumatic. Sclerae anicteric. Oropharynx pink and moist. Neck: Supple. Chest: Lung clear. Extremities: Show no significant edema, cyanosis, or clubbing. Neurologic: On cranial nerve examination, no obvious deficits despite the patient's stroke. Symmetr ic face movement with nasolabial folds equal. Her facial sensation appears intact. She has some mor e weakness in the right upper extremity around 3/5 to 4/5 proximally and distally. Right lower extre mity 4/5. On the left side, she has 5/5 strength proximally and distally. Sensation, subtle increas e on the right compared to left side. Coordination slow, but intact in the right upper and lower ext remities. Rehab And Medical Assessment: Ms. Donovan is a 44-year-old right-handed patient with impairment catego ry of 01, stroke. Her impairment group code is 01.2, right body involvement, left brain. Etiologic diagnosis is posterior left basal ganglia stroke. Comorbidities are anemia of chronic disease, chron ic stage 3 kidney disease, decreased mobility, decreased physical functioning, diastolic congestive h eart failure, diabetes mellitus, hypertension, morbid obesity. She does have slightly elevated white blood cell count. Plan: She will have physical, occupational, and speech therapy for 3.5 hours, 5 of 7 days. We will continue with DVT prophylaxis using heparin 5000 units subcutaneously twice daily; aspirin 81 mg lenny y and clopidogrel or Plavix 75 mg daily for stroke risk reduction; Norvasc 10 mg daily for hypertensi on; albuterol nebulizer for shortness of breath; Tylenol for pain; vitamin D supplementation on board ; Coreg for heart rate control along with Cardura; insulin sliding scale and metformin twi ce daily; melatonin 3 mg at night for insomnia; Senokot-S 2 at bedtime for constipation; and Zoloft f or mood stabilization and depression. Comorbidities That Are Impacting Rehabilitation: Currently, Ms. Donovan is a morbidly obese patient an d will be a significant risk of falling and injury if the right leg is to give out. We will have a g ait belt at all times and wheelchair following while she is ambulating with a rolling walker. She is at risk of hemorrhagic conversion in stroke. She is on heparin, aspirin, and Plavix to reduce the r isk of additional stroke. urine or stool or pulmonary system. She is 44 and has had a se cond stroke, which brings possibility of the etiology, which may require stroke in the workup when th e patient is discharged. However, she does have chronic kidney disease, hypertension, diabetes, whic h are significant risk factors for stroke along with her morbid obesity. Rehab Specific Plan: Ms. Donovan will have physical, occupational, and speech therapy 3.5 hours, 5 of 7 days to improve her ability to transfer from bed to chair to a rolling walker and a wheelchair to t he toilet and to the shower to perform toileting and showering. She will work with physical therapy, ambulate at least 250 feet with supervision and to go up and down 10 steps with supervision, and mob ilize the wheelchair with supervision. She will have speech therapy to improve her cognitive functio n and assess for any risk of aspiration pneumonia. Evaluate her swallowing and then advance her diet as appropriate. Ms. Donovan has a good understanding of the process of admission to the inpatient rehabilitation facili and how she will benefit from physical, occupational, and speech therapy. She will have 24 hours a day, 7 days a week skilled and rehabilitation nursing, daily physician evaluation and management, a id Financial Wellness Coach evaluation and management for discharge planning, home equipment, and continuing t herapy. If need be, additional services from the hospitalist service may be consulted in addition to the cardiology service. Barriers To Discharge: Ms. Donovan has had a second stroke. She is at risk for additional strokes, bu t will be mitigated with the antiplatelet medication in addition to DVT prophylaxis treatments. She she will be hydrated once she is mobilized. For hypothyroidism, which is also on board, sh chase will be continued on her Synthroid 0.075 mg daily. Estimated Length Of Stay: About 2 weeks. Prognosis: Good. Rehab Specific Goals: 1.Ms. Donovan will be able to ambulate 250 feet with independence using a rolling walker. 2.She will be able to mobilize wheelchair 250 feet. 3.She will be able to go up and down 10 steps with bilateral handrails with modified independence. 4.She will perform cognitive functioning independently and she will perform all ADLs independently. Ms. Donovan has a good understanding of the process of admission to inpatient rehabilitation unit and h ow she will benefit. By signing this document, I personally acknowledge I performed a full physical examination on Ms. Court aceves no later than 24 hours after her admission to the inpatient rehabilitation facility and determined that she is able to tolerate the above course of treatment at an intensive level for a reasonable pe riod of time. A detailed individualized plan of care for her will be completed by hospital day 4 bas ed on the preadmission screen, history and physical, and therapy evaluations. LOU Voice ID: [id number]
[2024-08-06] MEDS: AMLODIPINE 10 MG TAB PO SCH (11:06)
[2024-08-06] MEDS: EPOETIN ALFA-EPBX 10,000 UNIT/ML VIAL SQ ONE (12:17)
[2024-08-06] MEDS: MAGNESIUM OXIDE 400 MG TAB PO ONE (17:26)
[2024-08-06] MEDS: MAGNESIUM OXIDE 400 MG TAB PO SCH (21:07)
[2024-08-06] MEDS: DULERA 100/5 (MOMETASONE/FORMOTEROL) INHALER IH SCH (21:07)
--- NOTE | 2024-08-06 23:03 | PN ---
Date of Progress Note: 08/06/2024 Time Of Service: 1:10 p.m. Subjective: Ms. Donovan is ambulating down the hallway with therapist. She is happy so far with her r ecovery from her stroke. The right arm is working better. She has seen progress in her ability to t ransfer, to ambulate, and to take care of her activities of daily living. Review of Systems: No fevers, chills, nausea, vomiting, myalgias, arthralgias. No rash. No headache. Physical Examination: Vital Signs: Blood pressure 155/63, pulse 70, respiratory rate 16, temperature 97.2, oxygen saturati on 100%. Weight 347 pounds, height 5 feet 5 inches, BMI 57.8, placed in the extreme obesity category . General: Again, Ms. Donovan was ambulating with a rolling walker. HEENT: She was normocephalic, atraumatic. Sclerae anicteric. Oropharynx moist. Neck: Supple. Lungs: She has good air movement. Neuro: significant deficit in right side, is weak around 4/5 in the arm and legs, but abl e to manipulate, stand, and ambulate well. Laboratory Studies: White blood cell count 10.9, hemoglobin 8.4, platelets 333. Sodium 140, potassi um 3.8, chloride 113, carbon dioxide 21, BUN 51, creatinine 3.15, glucose ranged from 79 to 116. Hem oglobin A1c 5.0. Calcium 8.6. Magnesium 1.6. Albumin 2.9, prealbumin 15.8. Urinalysis extreme tur bidity, 1+ blood, 500 esterase, 5-10 red blood cells, wbc's greater than 50. White blood cells, mode rately high and clumps. Bacteria less than 20. X-ray/imaging: No new x-rays or imaging. Medications: Tylenol 500 mg every 4 hours as needed, albuterol nebulizer 2.5 mg every 6 hours as nee ded for wheezing, Norvasc 10 mg daily, aspirin 81 mg daily, Lipitor 80 mg at bedtime, Bumex 2 mg lenny y, Rocaltrol 0.25 mcg daily, Coreg 25 mg twice daily, Plavix 75 mg daily, Cardura 4 mg at bedtime, fe rrous sulfate 325 mg daily, heparin 5000 units subcutaneous every 12 hours, Synthroid 0.075 mg daily, mild insulin sliding scale, magnesium oxide 400 mg twice daily, melatonin 3 mg at bedtime, metformin 500 mg daily, Singulair 10 mg daily, Senna S 2 at bedtime Zoloft 100 mg daily. Progress Made With Physical, Occupational, And Speech Therapy: Today, with physical therapy, she was able to ambulate 150 feet twice with a rolling walker and another 100 feet with contact guard assist ance. Wheelchair mobilization 250 feet with standby assistance. Fbupdf-ej-pwl transfers, standby as sistance. [id number]-at-qrktk transfers contact guard assistance. With occupational therapy, she did have difficulty cleaning buttocks after bowel movements. She was found to be able to do that well by ____ . Some difficulty donning and doffing shoes and edge of bed supervision required. She is doin g well in terms of speech and is not receiving speech therapy. Assessment: Ms. Donovan is a 44-year-old patient in rehabilitation stroke involving the lef t basal ganglia with some right-sided weakness from which she is improving fairly well. She has decr eased mobility, decreased physical functioning, stage 3 kidney disease. She is seen by the renal ser vice and is helpful with her care. She has hypertension, diabetes, morbid obesity, as noted, and jeanine stolic congestive heart failure. Plan: She will have physical and occupational therapy. Continue 3 hours a day, 5 of 7 days. We mustapha l continue with her list of comorbid condition medications which are noted above. Again, she is foll owed by the renal service. Dr. Lee saw her today with a plan to continue current management. Fl uid management is noted and we will follow up closely to make a determination as to whether more aggr essive renal management is needed. LB/MODL Voice ID: [id number] Report ID: [id number]
[2024-08-07 06:45] LABS: Absolute Basophils 0.1 K/uL (0-0.5); Absolute Eosinophils 0.2 K/uL (0-0.5); Absolute Lymphocytes (CBC) 3.3 K/uL (0.7-4.9); Absolute Monocytes 0.9 K/uL (0.1-1.3); Absolute Neutrophil 6.6 K/uL (1.8-8.0); Eosinophils % 1.7 % (0-4.4); Hemoglobin 8.1 g/dL (12.0-15.0); Lymphocytes % 29.6 % (15.3-44.8); MCH 29.8 pg (27.0-35.0); MCHC 32.3 g/dL (32.0-36.0); Monocytes % 8.3 % (3.3-12.3); Neutrophils % 59.4 % (41.7-73.7); Platelets 304 thou/uL (152-406); RBC Red Blood Cell Count 2.72 M/uL (3.86-4.86); Red Cell Distribution Width 13.9 % (12.1-15.2)
[2024-08-07 07:09] LABS: AST/SGOT 11 U/L (15-37); Albumin 2.8 g/dL (3.4-5.0); Albumin/Globulin Ratio 0.6 (1.1-1.8); Alkaline Phosphatase 71 U/L (45-117); BUN Blood Urea Nitrogen 59 mg/dL (7-18); Bicarbonate 20 mEq/L (21-32); Bilirubin Total 0.2 mg/dL (0.2-1.0); Globulin 4.4 g/dL (2.3-3.5); Glomerular Filtration Rate 19 ml/min (=/>90); Glucose Level 92 mg/dL (74-106); NT PRO-BNP 1115 pg/mL (<125); Phosphorus 3.6 mg/dL (2.5-4.9); Protein, Total 7.2 g/dL (6.4-8.2); Sodium Level 137 mEq/L (136-145); Uric Acid 12.6 mg/dL (2.6-6.0)
[2024-08-07 07:14] LABS: ALT/SGPT < 14 U/L (13-56)
[2024-08-07] MEDS: FERROUS SULFATE 325 MG TAB PO SCH (10:46)
[2024-08-07] MEDS: ENOXAPARIN 40 MG/0.4 ML SQ SCH (11:59)
[2024-08-07] MEDS: MULTIVITAMINS,THERAPEUT 1 TAB PO SCH (11:59)
--- NOTE | 2024-08-07 13:46 | P.RH.PN ---
Estimated Length of Stay: 11 Expected Discharge Date: 08/14/24 Discharge Disposition Plan: Home Family Support: Yes Vital Signs: Last Vital Signs Temp 98.0 F 08/07/24 08:00 Pulse 69 08/07/24 10:47 Resp 18 08/07/24 08:00 BP 132/59 L 08/07/24 10:47 Pulse Ox 97 08/07/24 08:00 Laboratory: Laboratory Last Values WBC 11.10 thou/uL (4.3-10.9) H 08/07/24 06:32 RBC 2.72 M/uL (3.86-4.86) L 08/07/24 06:32 Hgb 8.1 g/dL (12.0-15.0) L 08/07/24 06:32 Hct 25.0 % (36.0-45.0) L 08/07/24 06:32 MCV 92.0 fL (80-100) 08/07/24 06:32 MCH 29.8 pg (27.0-35.0) 08/07/24 06:32 MCHC 32.3 g/dL (32.0-36.0) 08/07/24 06:32 RDW 13.9 % (12.1-15.2) 08/07/24 06:32 Plt Count 304 thou/uL (152-406) 08/07/24 06:32 MPV 8.0 fL (7.6-11.3) 08/07/24 06:32 Neutrophils % 59.4 % (41.7-73.7) 08/07/24 06:32 Lymphocytes % 29.6 % (15.3-44.8) 08/07/24 06:32 Monocytes % 8.3 % (3.3-12.3) 08/07/24 06:32 Eosinophils % 1.7 % (0-4.4) 08/07/24 06:32 Basophils % 1.0 % (0-1.3) 08/07/24 06:32 Absolute Neutrophils 6.6 K/uL (1.8-8.0) 08/07/24 06:32 Absolute Lymphocytes 3.3 K/uL (0.7-4.9) 08/07/24 06:32 Absolute Monocytes 0.9 K/uL (0.1-1.3) 08/07/24 06:32 Absolute Eosinophils 0.2 K/uL (0-0.5) 08/07/24 06:32 Absolute Basophils 0.1 K/uL (0-0.5) 08/07/24 06:32 Sodium 137 mEq/L (136-145) 08/07/24 06:32 Potassium 4.0 mEq/L (3.5-5.1) 08/07/24 06:32 Chloride 112 mEq/L (98-107) H 08/07/24 06:32 Carbon Dioxide 20 mEq/L (21-32) L 08/07/24 06:32 Anion Gap 9.0 mEq/L (5.0-15.0) 08/07/24 06:32 BUN 59 mg/dL (7-18) H 08/07/24 06:32 Creatinine 2.98 mg/dL (0.55-1.02) H 08/07/24 06:32 Est GFR (CKD-EPI) 19 ml/min (=/>90) L 08/07/24 06:32 Glucose 92 mg/dL (74-106) 08/07/24 06:32 POC Glucose 119 mg/dL (65-120) 08/07/24 12:05 Hemoglobin A1c 5.0 % (4.2-6.3) 08/06/24 05:46 Uric Acid 12.6 mg/dL (2.6-6.0) H 08/07/24 06:32 Calcium 8.4 mg/dL (8.5-10.1) L 08/07/24 06:32 Phosphorus 3.6 mg/dL (2.5-4.9) 08/07/24 06:32 Magnesium 1.6 mg/dL (1.6-2.4) 08/06/24 05:46 Total Bilirubin 0.2 mg/dL (0.2-1.0) 08/07/24 06:32 AST 11 U/L (15-37) L 08/07/24 06:32 ALT < 14 U/L (13-56) 08/07/24 06:32 Alkaline Phosphatase 71 U/L (45-117) 08/07/24 06:32 NT-Pro-B Natriuret Pep 1115 pg/mL (<125) H 08/07/24 06:32 Serum Total Protein 7.2 g/dL (6.4-8.2) 08/07/24 06:32 Albumin 2.8 g/dL (3.4-5.0) L 08/07/24 06:32 Globulin 4.4 g/dL (2.3-3.5) H 08/07/24 06:32 Albumin/Globulin Ratio 0.6 (1.1-1.8) L 08/07/24 06:32 Prealbumin 15.8 mg/dL (20-40) L 08/06/24 05:46 Vitamin B12 389 pg/mL (193-986) 08/07/24 06:32 Urine Color Light-yellow (Yellow) 08/05/24 20:15 Urine Clarity Extremely turbid (Clear) H 08/05/24 20:15 Urine pH 5.5 (5.0-7.0) 08/05/24 20:15 Ur Specific [place] 1.011 (1.005-1.030) 08/05/24 20:15 Glucose (UA)(Auto) Negative (Negative) 08/05/24 20:15 Urine Ketones Negative (Negative) 08/05/24 20:15 Urine Blood 1+ (Negative) H 08/05/24 20:15 Urine Nitrite Negative (Negative) 08/05/24 20:15 Urine Bilirubin Negative (Negative) 08/05/24 20:15 Urine Urobilinogen Normal (Normal) 08/05/24 20:15 Ur Leukocyte Esterase 500 Yuriy/uL (Negative) H 08/05/24 20:15 Urine RBC 5-10 /HPF (None Seen) H 08/05/24 20:15 Urine WBC >50 /HPF (<5) H 08/05/24 20:15 Urine WBC Clumps Moderate /HPF (None Seen) H 08/05/24 20:15 Ur Squamous Epith Cells <5 /HPF (None Seen) 08/05/24 20:15 U Non-Squamous Epi Cells <5 /HPF (None Seen) 08/05/24 20:15 Unidentified Crystals Few /HPF (None Seen) 08/05/24 20:15 Urine Bacteria <20 /HPF (<20) 08/05/24 20:15 Hyaline Casts 0-5 /LPF (None Seen) 08/05/24 20:15 Urine Mucus Slight /HPF (None Seen) 08/05/24 20:15 Urine Culture Reflexed Reflexed 08/05/24 20:15 Urine Total Protein 1+ (Negative) H 08/05/24 20:15 Weight: 347 lb 4.8 oz Closed Surgical Incision Present: No Negative Pressure Wound Therapy Present: No Physician Update: Labs reviewed and are stable. Speech is not needed. Swallowing independently. Supervision walking with RW. Poor fine motor activity with right hand. Poor endurance. Supervision with. ADLs. 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 Please see the Rehabilitation Signature page for all necessary signatures.
--- NOTE | 2024-08-07 18:08 | P.PN ---
(S) Pt denies any CP, dyspnea, orthostatic symptoms or worsening of LE edema. No current urinary symptoms voiced although UA/UCx was abnormal (O) vitals reviewed in the EMR General: In no apparent distress,Cooperative HEENT: Atraumatic, not on O2 Neck: Supple Respiratory: Clear to auscultation bilaterally, Normal air movement Cardiovascular: No sig pitting edema, Regular rate/rhythm mostly Gastrointestinal: Obese, ND, NT Musculoskeletal: No contractures Integumentary: No rashes, Neurological: Normal speech, alert, non focal TTE LEFT VENTRICULAR WALL MOTION: NORMAL DOPPLER/COLOR FLOW: NORMAL COMMENTS: 1. MODERATE LEFT VENTRICULAR HYPERTROPHY 2. NORMAL LEFT VENTRICULAR SYSTOLIC FUNCTION, EJECTION FRACTION 60-65%, NORMAL WALL MOTION 3. NORMAL DIASTOLIC FX 4. NEGATIVE SALINE BUBBLE STUDY Conclusions/Impression: Stage I NIKOLAY on underlying CKD Stage IIIb/IV -Cr level lower on repeat testing, possible mild pre-renal state on chronic loop diuretic therapy, will lower dose -BSA corrected eGFR calculators will give a higher eGFR estimate and may need to be employed to monitor renal function during steady state kinetics HTN with CKD -On multiple agents but given recent CVA, cont strict BP control, target BP at least < 140/90 DM II with CKD -A1c likely falsely lower due to anemia -Continue Tradjenta -Continue Mounjaro Acute Cystitis with pyuria -Positive UCx, will place on PO 3rd gen cephalosporin Abx Pastor Rainey MD, SANGITA
[2024-08-07] MEDS: CEFDINIR 300 MG CAP PO SCH (20:41)
[2024-08-08 07:35] LABS: Anion Gap 9.1 mEq/L (5.0-15.0); Potassium 4.1 mEq/L (3.5-5.1)
[2024-08-08] MEDS: allopurinoL 100 MG TAB PO SCH (08:26)
[2024-08-08] MEDS: BUMETANIDE 1 MG TABLET PO SCH (08:26)
[2024-08-09 07:24] LABS: Anion Gap 11.4 mEq/L (5.0-15.0); Potassium 4.4 mEq/L (3.5-5.1)
[2024-08-10 06:17] LABS: Absolute Basophils 0.1 K/uL (0-0.5); Absolute Eosinophils 0.2 K/uL (0-0.5); Absolute Lymphocytes (CBC) 3.3 K/uL (0.7-4.9); Absolute Monocytes 1.1 K/uL (0.1-1.3); Absolute Neutrophil 7.6 K/uL (1.8-8.0); Basophils % 1.1 % (0-1.3); Eosinophils % 1.5 % (0-4.4); Hematocrit 27.1 % (36.0-45.0); Hemoglobin 8.6 g/dL (12.0-15.0); Lymphocytes % 26.9 % (15.3-44.8); MCH 29.2 pg (27.0-35.0); MCHC 31.6 g/dL (32.0-36.0); MCV 92.3 fL (80-100); Monocytes % 8.7 % (3.3-12.3); Neutrophils % 61.8 % (41.7-73.7); Nucleated Red Blood Cells % 0.2 % (0-0); Platelets 333 thou/uL (152-406); RBC Red Blood Cell Count 2.94 M/uL (3.86-4.86); Red Cell Distribution Width 14.1 % (12.1-15.2)
[2024-08-10 06:19] LABS: Anion Gap 11.4 mEq/L (5.0-15.0); Potassium 4.4 mEq/L (3.5-5.1)
[2024-08-10] MEDS: DULERA 100/5 (MOMETASONE/FORMOTEROL) INHALER IH PRN (07:59)
[2024-08-10] MEDS: MOUNJARO SQ SCH (11:49)
--- NOTE | 2024-08-10 12:05 | P.PN ---
Date of Service: 08/10/24 Vital Signs Temp Pulse Resp BP Pulse Ox 97 F 62 16 152/68 H 99 08/10/24 06:30 08/10/24 11:47 08/10/24 06:30 08/10/24 11:47 08/10/24 06:30 Medications Acetaminophen (Acetaminophen 500 Mg Tab) 500 mg PO Q4H PRN PRN Reason: Pain scale 2-4 (Mild) Albuterol Sulfate (Albuterol 2.5 Mg/3 Ml Neb Pavithra) 2.5 mg NEB [id number] PRN PRN Reason: WHEEZING Allopurinol (Allopurinol 100 Mg Tab) 100 mg PO DAILY [facility] Last Admin: 08/10/24 08:00 Dose: 100 mg Amlodipine Besylate (Amlodipine 10 Mg Tab) 10 mg PO DAILY [facility] Last Admin: 08/10/24 11:46 Dose: 10 mg Aspirin (Aspirin Ec 81 Mg Tab) 81 mg PO DAILY [facility] Last Admin: 08/10/24 08:01 Dose: 81 mg Atorvastatin Calcium (Atorvastatin 80 Mg Tab) 80 mg PO BEDTIME [facility] Last Admin: 08/09/24 19:36 Dose: 80 mg Bumetanide (Bumetanide 1 Mg Tablet) 1 mg PO DAILY [facility] Last Admin: 08/10/24 11:47 Dose: 1 mg Calcitriol (Calcitrol 0.25 Mcg Cap) 0.25 mcg PO DAILY [facility] Last Admin: 08/10/24 08:01 Dose: 0.25 mcg Carvedilol (Carvedilol 25 Mg Tab) 25 mg PO BID 6AM 6PM [facility] Last Admin: 08/10/24 05:11 Dose: 25 mg Cefdinir (Cefdinir 300 Mg Cap) 300 mg PO BID [facility]; Protocol Stop: 08/12/24 20:01 Last Admin: 08/10/24 08:01 Dose: 300 mg Clopidogrel Bisulfate (Clopidogrel 75 Mg Tablet) 75 mg PO DAILY [facility] Last Admin: 08/10/24 08:01 Dose: 75 mg Doxazosin Mesylate (Doxazosin 4 Mg Tab) 4 mg PO BEDTIME [facility] Last Admin: 08/09/24 19:36 Dose: 4 mg Enoxaparin Sodium (Enoxaparin 40 Mg/0.4 Ml) 40 mg SQ DAILY [facility] Last Admin: 08/10/24 08:00 Dose: 40 mg Ferrous Sulfate (Ferrous Sulfate 325 Mg Tab) 325 mg PO DAILY [facility] Last Admin: 08/10/24 08:02 Dose: 325 mg Home Med (Tradjenta) 5 mg PO DAILY [facility] Last Admin: 08/10/24 08:00 Dose: Not Given Home Med (Mounjaro) 5 mg SQ Mo@0900 [facility] Last Admin: 08/10/24 11:49 Dose: 5 mg Home Med (Move Free Ultra Borate K2 D3) 1 tab PO DAILY [facility] Last Admin: 08/10/24 08:00 Dose: Not Given Insulin Human Regular (Insulin Regular (Human) 100 Unit/Ml) 0 unit SQ [facility]; Protocol Last Admin: 08/10/24 11:30 Dose: Not Given Levothyroxine Sodium (Levothyroxine Sod 0.075 Mg Tab) 0.075 mg PO DAILYAC [facility] Last Admin: 08/10/24 08:00 Dose: 0.075 mg Magnesium Oxide (Magnesium Oxide 400 Mg Tab) 400 mg PO BID [facility] Last Admin: 08/10/24 08:02 Dose: 400 mg Melatonin (Melatonin 3 Mg Tablet) 3 mg PO BEDTIME PRN PRN PRN Reason: INSOMNIA Last Admin: 08/07/24 20:42 Dose: 3 mg Montelukast Sodium (Montelukast 10 Mg Tab) 10 mg PO DAILY [facility] Last Admin: 08/10/24 08:01 Dose: 10 mg Senna/Docusate Sodium (Docusate Na/Senna Conc 1 Tab) 2 tab PO BEDTIME PRN PRN Reason: CONSTIPATION Sertraline HCl (Sertraline Hcl 100 Mg Tab) 100 mg PO DAILY [facility] Last Admin: 08/10/24 08:01 Dose: 100 mg Vitamin B Complex/Vit C/Folic Acid (Multivitamins,Therapeut 1 Tab) 1 tab PO DAILY [facility] Last Admin: 08/10/24 08:01 Dose: 1 tab Lab Results (last 24 hrs) 08/10/24 11:06: POC Glucose 112 08/10/24 06:46: POC Glucose 87 08/10/24 05:33: WBC 12.20 H, RBC 2.94 L, Hgb 8.6 L, Hct 27.1 L, MCV 92.3, MCH 29.2, MCHC 31.6 L, RDW 14.1, Plt Count 333, MPV 9.0, Neutrophils % 61.8, Lymphocytes % 26.9, Monocytes % 8.7, Eosinophils % 1.5, Basophils % 1.1, Absolute Neutrophils 7.6, Absolute Lymphocytes 3.3, Absolute Monocytes 1.1, Absolute Eosinophils 0.2, Absolute Basophils 0.1 08/10/24 05:33: Sodium 140, Potassium 4.4, Chloride 113 H, Carbon Dioxide 20 L, Anion Gap 11.4, BUN 57 H, Creatinine 2.83 H, Est GFR (CKD-EPI) 21 L, Glucose 93, Calcium 8.7 08/09/24 19:28: POC Glucose 119 08/09/24 16:53: POC Glucose 87 Microbiology Results 08/05/24 20:15 Clean Catch Urine [place] Count - Final >100,000 CFU/ML. 08/05/24 20:15 Clean Catch Urine - Final Klebsiella Pneumoniae Assessment/ Plan: Nephrology Progress Note No Dyspnea No Chest Pain No Acute Events Overnight Vital Signs, Medications, Blood Work, and Imaging reviewed in the chart General: In no apparent distress, Oriented x3, Cooperative, Obese HEENT: Atraumatic Neck: Supple Respiratory: Clear to auscultation bilaterally, Normal air movement Cardiovascular: No edema, Regular rate/rhythm Gastrointestinal: Soft and benign, Non-distended Musculoskeletal: No clubbing, No contractures Integumentary: No rashes, No cyanosis Neurological: Normal speech Laboratory Data (last 24 hrs) 08/06/24 08/06/24 08/06/24 05:46 05:46 05:00 WBC 10.90 Hgb 8.4 L Hct 25.5 L Plt Count 333 Sodium 140 Potassium 3.8 BUN 51 H Creatinine 3.15 H Glucose 89 Magnesium 1.6 Cancelled Imagings Data: [id number] EXAMINATION: ONE VIEW CHEST XR CLINICAL INDICATION: Female, 44 years old.,SOB TECHNIQUE: Frontal chest projection is submitted. Examination is limited by patient positioning and technique. COMPARISON: 04/10/2022 FINDINGS: The lungs are well inflated and clear. No pneumothorax or sizable effusion. Moderate cardiomegaly.. IMPRESSION: No acute pulmonary process. Progressive cardiomegaly. [id number] LEFT VENTRICULAR WALL MOTION: NORMAL DOPPLER/COLOR FLOW: NORMAL COMMENTS: 1. MODERATE LEFT VENTRICULAR HYPERTROPHY 2. NORMAL LEFT VENTRICULAR SYSTOLIC FUNCTION, EJECTION FRACTION 60-65%, NORMAL WALL MOTION 3. NORMAL DIASTOLIC FX 4. NEGATIVE SALINE BUBBLE STUDY [id number] US CAROTID DUPLEX BILATERAL CLINICAL INDICATION: [facility] MAIN right sided weaknesss TECHNIQUE: Real-time grayscale, color flow, and spectral Doppler sonographic images were obtained of the extracranial carotid system using a linear transducer. Arterial peak systolic velocities are recorded as follows. COMPARISON: No prior exam. FINDINGS: RIGHT: Common carotid artery: 55 cm/s Internal carotid artery: 60 cm/s External carotid artery: 37 cm/s Right ICA/CCA ratio: 1.09 Plaque : Mildly echogenic noncalcified plaque. Vertebral artery: 32 LEFT: Common carotid artery: 45 cm/s Internal carotid artery: 96 cm/s. This is nonspecific but could be related to distal tortuosity. External carotid artery: 44 cm/s Left ICA/CCA ratio: 2.11 Plaque None Vertebral artery: 36 IMPRESSION: No hemodynamically significant stenosis (greater than 50%) within the extracranial internal carotid arteries. [id number] EXAMINATION: MRI BRAIN WITHOUT CONTRAST CLINICAL INDICATION: r/o CVA TECHNIQUE: Multiplanar multisequence MR images of the brain were obtained without intravenous contrast. Unless otherwise specified, incidental findings do not require dedicated imaging follow-up. COMPARISON: 07/29/2024 FINDINGS: INTRACRANIAL: 13 mm area of restricted diffusion is seen posterior left basal ganglia compatible with acute CVA. No hemorrhagic component. Old infarct noted in the right posterior parietal region. VASCULATURE: Normal signal voids in the larger intracranial arteries and dural venous sinuses. SINUSES: The paranasal sinuses and mastoid air cells are predominantly clear. BONE: The marrow signal pattern is within normal limits. IMPRESSION: 13 mm acute CVA posterior left basal ganglia. No hemorrhage, hydrocephalus or midline shift. Conclusions/Impression: Stage I NIKOLAY may be multifactorial CKD IV with Proteinuria -No NSAIDs HTN with CKD -Continue Coreg & Doxazosin -Continue Amlodipine Peripheral Edema -Continue Bumetanide DM II with CKD -RISS -Continue Tradjenta -Continue Mounjaro -Hold Metformin Anemia in chronic illness -Monitor H&H -Retacrit prn -Continue oral iron CKD MBD Secondary HyperParathyroidism -Continue Calcitriol Acute Klebsiella Cystitis with Hematuria -Continue Cefdinir -Continue cranberry tab
--- NOTE | 2024-08-10 23:03 | PN ---
Date of Progress Note: 08/10/2024 Time Of Service: 1:10 p.m. Subjective: Ms. Donovan is ambulating very well in the hallway, doing [id number] with the therapist standing next to her and she is very happy with her improved coordination of the right hand which is where the stroke impacting her most significantly. Review of Systems: No fevers, chills, myalgias, arthralgias, rash, headaches. No other complaints. Physical Examination: Vital Signs: Blood pressure 148/69, pulse 64, respiratory rate of 16, temperature 97, oxygen saturat ion 99%. General: Again, Ms. Donovan is doing therapy. She is ambulating around the hallway with a rolling wal ker. Therapist at bedside with gait belt on. He is just walking beside her, not having to hold onto her as she is ambulating. Again, did multiple dxq-xd-[id number] very well. Coordination is much improv ed in the right upper extremity and in the right lower extremity. Laboratory Studies: White blood cell count 12.2 with neutrophils normal at 61.8, hemoglobin 8.6, hem atocrit 27.1, platelets 333. Sodium 140, potassium 4.4, chloride 113, carbon dioxide 20, BUN is 57, creatinine 2.83. She is followed by the Renal Service. Blood sugars ranged from 87 to 112, calcium 8.7. X-ray/imaging: No new x-rays or imaging. Medications: Her medications have been reviewed. She is on allopurinol for gout, Bumex for a loop d iuretic, and of course followed by the Renal Service. She does have daily renal service evaluation a nd management. Dr. Lee saw her today and is continuing management with noting the stage IV kidne y disease with proteinuria. Continue Tradjenta and Mounjaro. Hold metformin and also for cystitis a nd hematuria, continue with cefdinir, cranberry tabs, and calcitriol for secondary hyperparathyroidis m and iron supplementation with Retacrit. Progress Made With Physical And Occupational Therapy: With physical therapy today, she did ambulate 125 feet twice with a rolling walker and another 285 feet and then 300 feet all independently with a rolling walker. She ascended and descended 15 steps with bilateral handrails with supervision. Mult iple aik-zi-brrro done independently. With occupational therapy, independent with whk-to-lbawf trans fers, ambulated from room to gym with a rolling walker independently. She did use a regional owner operator truck driver to pickle sorter 10 large objects from the floor to improve her hand-to-eye coordination. Still have some difficul ty touching her thumb to the fifth digits on the right hand where she has the effect of her stroke. Ms. Donoavn is making excellent progress with her physical and occupational therapy and is likely on tr ack to be able to be discharged home and to continue with outpatient physical therapy. She has the R enal Service assisting with her comorbid conditions. Assessment: Ms. Donovan is a 44-year-old patient with a posterior left basal ganglia stroke producing right-sided incoordination and weakness, more in the upper and lower extremity. She has extreme obes ity, stage IV kidney disease, diabetes mellitus, CHF that is diastolic, and decreased mobility along with decreased physical functioning. Plan: 1.Continue with physical and occupational therapy for 3 hours a day, 5 of 7 days. 2.She is managed by Renal Service for comorbid conditions. She has DVT prophylaxis on board, urinar y tract infection treatment on board, Senokot for constipation, Zoloft for depression, Nephro-Jose fo r her malnutrition, Synthroid for hypothyroidism, ferrous sulfate for anemia, Cardura for blood press ure management. She has Plavix 75 mg, aspirin 81 mg daily for stroke risk reduction and she has Lipi tor for dyslipidemia, allopurinol for gout, Tylenol for pain, and albuterol nebulizer for shortness o f breath. LB/MODL Voice ID: [id number] Report ID: [id number]
--- NOTE | 2024-08-11 20:36 | P.PN ---
Date of Service: 08/11/24 Vital Signs Temp Pulse Resp BP Pulse Ox 97.5 F 66 17 145/66 H 97 08/11/24 18:44 08/11/24 20:20 08/11/24 18:44 08/11/24 20:20 08/11/24 18:44 Medications Acetaminophen (Acetaminophen 500 Mg Tab) 500 mg PO Q4H PRN PRN Reason: Pain scale 2-4 (Mild) Albuterol Sulfate (Albuterol 2.5 Mg/3 Ml Neb Pavithra) 2.5 mg NEB [id number] PRN PRN Reason: WHEEZING Allopurinol (Allopurinol 100 Mg Tab) 100 mg PO DAILY [facility] Last Admin: 08/11/24 11:30 Dose: 100 mg Amlodipine Besylate (Amlodipine 10 Mg Tab) 10 mg PO DAILY [facility] Last Admin: 08/11/24 11:32 Dose: 10 mg Aspirin (Aspirin Ec 81 Mg Tab) 81 mg PO DAILY [facility] Last Admin: 08/11/24 11:30 Dose: 81 mg Atorvastatin Calcium (Atorvastatin 80 Mg Tab) 80 mg PO BEDTIME [facility] Last Admin: 08/11/24 20:20 Dose: 80 mg Bumetanide (Bumetanide 1 Mg Tablet) 1 mg PO DAILY [facility] Last Admin: 08/11/24 11:31 Dose: 1 mg Calcitriol (Calcitrol 0.25 Mcg Cap) 0.25 mcg PO DAILY [facility] Last Admin: 08/11/24 11:30 Dose: 0.25 mcg Carvedilol (Carvedilol 25 Mg Tab) 25 mg PO BID 6AM 6PM [facility] Last Admin: 08/11/24 17:51 Dose: 25 mg Cefdinir (Cefdinir 300 Mg Cap) 300 mg PO BID [facility]; Protocol Stop: 08/12/24 20:01 Last Admin: 08/11/24 20:20 Dose: 300 mg Clopidogrel Bisulfate (Clopidogrel 75 Mg Tablet) 75 mg PO DAILY [facility] Last Admin: 08/11/24 11:30 Dose: 75 mg Doxazosin Mesylate (Doxazosin 4 Mg Tab) 4 mg PO BEDTIME [facility] Last Admin: 08/11/24 20:20 Dose: 4 mg Enoxaparin Sodium (Enoxaparin 40 Mg/0.4 Ml) 40 mg SQ DAILY [facility] Last Admin: 08/11/24 11:30 Dose: 40 mg Ferrous Sulfate (Ferrous Sulfate 325 Mg Tab) 325 mg PO DAILY [facility] Last Admin: 08/11/24 11:32 Dose: 325 mg Home Med (Tradjenta) 5 mg PO DAILY [facility] Last Admin: 08/11/24 08:00 Dose: Not Given Home Med (Mounjaro) 5 mg SQ Mo@0900 [facility] Last Admin: 08/10/24 11:49 Dose: 5 mg Home Med (Move Free Ultra Borate K2 D3) 1 tab PO DAILY [facility] Last Admin: 08/11/24 08:00 Dose: Not Given Insulin Human Regular (Insulin Regular (Human) 100 Unit/Ml) 0 unit SQ [facility]; Protocol Last Admin: 08/11/24 20:21 Dose: Not Given Levothyroxine Sodium (Levothyroxine Sod 0.075 Mg Tab) 0.075 mg PO DAILYAC [facility] Last Admin: 08/11/24 05:02 Dose: 0.075 mg Magnesium Oxide (Magnesium Oxide 400 Mg Tab) 400 mg PO BID [facility] Last Admin: 08/11/24 20:20 Dose: 400 mg Melatonin (Melatonin 3 Mg Tablet) 3 mg PO BEDTIME PRN PRN PRN Reason: INSOMNIA Last Admin: 08/07/24 20:42 Dose: 3 mg Montelukast Sodium (Montelukast 10 Mg Tab) 10 mg PO DAILY [facility] Last Admin: 08/11/24 11:30 Dose: 10 mg Senna/Docusate Sodium (Docusate Na/Senna Conc 1 Tab) 2 tab PO BEDTIME PRN PRN Reason: CONSTIPATION Sertraline HCl (Sertraline Hcl 100 Mg Tab) 100 mg PO DAILY [facility] Last Admin: 08/11/24 11:30 Dose: 100 mg Vitamin B Complex/Vit C/Folic Acid (Multivitamins,Therapeut 1 Tab) 1 tab PO DAILY [facility] Last Admin: 08/11/24 11:30 Dose: 1 tab Lab Results (last 24 hrs) 08/11/24 19:40: POC Glucose 107 08/11/24 16:07: POC Glucose 84 08/11/24 11:12: POC Glucose 93 08/11/24 07:05: POC Glucose 84 Microbiology Results 08/05/24 20:15 Clean Catch Urine [place] Count - Final >100,000 CFU/ML. 08/05/24 20:15 Clean Catch Urine - Final Klebsiella Pneumoniae Assessment/ Plan: Nephrology Progress Note No Dyspnea No Chest Pain No Acute Events Overnight Vital Signs, Medications, Blood Work, and Imaging reviewed in the chart General: In no apparent distress, Oriented x3, Cooperative, Obese HEENT: Atraumatic Neck: Supple Respiratory: Clear to auscultation bilaterally, Normal air movement Cardiovascular: No edema, Regular rate/rhythm Gastrointestinal: Soft and benign, Non-distended Musculoskeletal: No clubbing, No contractures Integumentary: No rashes, No cyanosis Neurological: Normal speech Laboratory Data (last 24 hrs) 08/06/24 08/06/24 08/06/24 05:46 05:46 05:00 WBC 10.90 Hgb 8.4 L Hct 25.5 L Plt Count 333 Sodium 140 Potassium 3.8 BUN 51 H Creatinine 3.15 H Glucose 89 Magnesium 1.6 Cancelled Imagings Data: [id number] EXAMINATION: ONE VIEW CHEST XR CLINICAL INDICATION: Female, 44 years old.,SOB TECHNIQUE: Frontal chest projection is submitted. Examination is limited by patient positioning and technique. COMPARISON: 04/10/2022 FINDINGS: The lungs are well inflated and clear. No pneumothorax or sizable effusion. Moderate cardiomegaly.. IMPRESSION: No acute pulmonary process. Progressive cardiomegaly. [id number] LEFT VENTRICULAR WALL MOTION: NORMAL DOPPLER/COLOR FLOW: NORMAL COMMENTS: 1. MODERATE LEFT VENTRICULAR HYPERTROPHY 2. NORMAL LEFT VENTRICULAR SYSTOLIC FUNCTION, EJECTION FRACTION 60-65%, NORMAL WALL MOTION 3. NORMAL DIASTOLIC FX 4. NEGATIVE SALINE BUBBLE STUDY [id number] US CAROTID DUPLEX BILATERAL CLINICAL INDICATION: [facility] MAIN right sided weaknesss TECHNIQUE: Real-time grayscale, color flow, and spectral Doppler sonographic images were obtained of the extracranial carotid system using a linear transducer. Arterial peak systolic velocities are recorded as follows. COMPARISON: No prior exam. FINDINGS: RIGHT: Common carotid artery: 55 cm/s Internal carotid artery: 60 cm/s External carotid artery: 37 cm/s Right ICA/CCA ratio: 1.09 Plaque : Mildly echogenic noncalcified plaque. Vertebral artery: 32 LEFT: Common carotid artery: 45 cm/s Internal carotid artery: 96 cm/s. This is nonspecific but could be related to distal tortuosity. External carotid artery: 44 cm/s Left ICA/CCA ratio: 2.11 Plaque None Vertebral artery: 36 IMPRESSION: No hemodynamically significant stenosis (greater than 50%) within the extracranial internal carotid arteries. [id number] EXAMINATION: MRI BRAIN WITHOUT CONTRAST CLINICAL INDICATION: r/o CVA TECHNIQUE: Multiplanar multisequence MR images of the brain were obtained without intravenous contrast. Unless otherwise specified, incidental findings do not require dedicated imaging follow-up. COMPARISON: 07/29/2024 FINDINGS: INTRACRANIAL: 13 mm area of restricted diffusion is seen posterior left basal ganglia compatible with acute CVA. No hemorrhagic component. Old infarct noted in the right posterior parietal region. VASCULATURE: Normal signal voids in the larger intracranial arteries and dural venous sinuses. SINUSES: The paranasal sinuses and mastoid air cells are predominantly clear. BONE: The marrow signal pattern is within normal limits. IMPRESSION: 13 mm acute CVA posterior left basal ganglia. No hemorrhage, hydrocephalus or midline shift. Conclusions/Impression: Stage I NIKOLAY may be multifactorial CKD IV with Proteinuria -No NSAIDs HTN with CKD -Continue Coreg & Doxazosin -Continue Amlodipine Peripheral Edema -Continue Bumetanide DM II with CKD -RISS -Continue Tradjenta -Continue Mounjaro -Hold Metformin Anemia in chronic illness -Monitor H&H -Retacrit prn -Continue oral iron CKD MBD Secondary HyperParathyroidism -Continue Calcitriol Acute Klebsiella Cystitis with Hematuria -Continue Cefdinir -Continue cranberry tab
--- NOTE | 2024-08-11 23:50 | PN ---
Date of Progress Note: 08/11/2024 Time Of Service: 1:10 p.m. Subjective: Ms. Donovan is ambulating around the unit without any significant issues. A gait belt is on, using a rolling walker and the therapist is walking beside her. She is very happy with therapy. Right hand coordination and strength are improving very well. Review of Systems: No fevers, chills, nausea, vomiting, myalgias, arthralgias, rash, headache, weight change, or any oth er changes. Physical Examination: Vital Signs: Blood pressure 125/66, pulse 66, respiratory rate 17, temperature 97.4, oxygen saturati on 97%. General: Ms. Donovan is ambulating very well. Neuro: She has no obvious cranial nerve deficits and no strength deficits. Mild incoordination of r ight upper extremity. Her gait and stance, stride are doing very well. Laboratory Studies: Blood sugars ranged from 84 to 107. Otherwise unremarkable blood work. X-ray/imaging: No new x-rays or imaging. Medications: Medications have been reviewed and are unchanged. Progress Made With Physical And Occupational Therapy: Today with physical therapy, she was able to p erform gfemrp-wv-ajo transfers independently, multiple krc-kt-nbpta transfers independently. She amb ulated with a rolling walker 125 feet, 340 feet, and 405 feet independently. Up and down 15 steps wi th bilateral handrails independently. With her occupational therapy, independent with edge of bed to wheelchair transfer, upper and lower body dressing, all independent. ADLs, all independent. As not ed by all therapists, she has done excellent, is ready for discharge home. Assessment: Ms. Donovan is a 44-year-old patient in the rehabilitation unit with a left basal ganglia stroke that caused some incoordination on the right side and weakness. She has recovered in excellen t fashion and mobilizing very well. She has comorbidities, hypertension, dyslipidemia. She has extr raquel obesity and is continuing antibiotics, cefdinir. She has anemia, hypothyroidism, insomnia, depre ssion, and renal insufficiency followed by the renal service. Plan: 1.She will continue until discharge physical, occupational, and speech therapy. 2.Renal service is managing her chronic renal insufficiency. 3.Her list of medications for comorbid conditions has been noted and they are continued unchanged. 4.She will be discharged home in the morning. Will have outpatient physical therapy to continue. LB/ANGI Voice ID: [id number] Report ID: [id number]
[2024-08-12 07:45] VITALS: BP 148/66
[2024-08-12 10:03] VITALS: TEMP 97.2
--- NOTE | 2024-08-12 20:31 | P.PN ---
Date of Service: 08/12/24 Vital Signs Temp Pulse Resp BP Pulse Ox 97.2 F 73 18 148/66 H 95 08/12/24 08:00 08/12/24 08:00 08/12/24 08:00 08/12/24 08:00 08/12/24 08:00 Lab Results (last 24 hrs) 08/12/24 11:37: POC Glucose 109 08/12/24 06:44: POC Glucose 83 Microbiology Results 08/05/24 20:15 Clean Catch Urine [place] Count - Final >100,000 CFU/ML. 08/05/24 20:15 Clean Catch Urine - Final Klebsiella Pneumoniae Assessment/ Plan: Nephrology Progress Note No Dyspnea No Chest Pain No Acute Events Overnight Vital Signs, Medications, Blood Work, and Imaging reviewed in the chart General: In no apparent distress, Oriented x3, Cooperative, Obese HEENT: Atraumatic Neck: Supple Respiratory: Clear to auscultation bilaterally, Normal air movement Cardiovascular: No edema, Regular rate/rhythm Gastrointestinal: Soft and benign, Non-distended Musculoskeletal: No clubbing, No contractures Integumentary: No rashes, No cyanosis Neurological: Normal speech Laboratory Data (last 24 hrs) 08/06/24 08/06/24 08/06/24 05:46 05:46 05:00 WBC 10.90 Hgb 8.4 L Hct 25.5 L Plt Count 333 Sodium 140 Potassium 3.8 BUN 51 H Creatinine 3.15 H Glucose 89 Magnesium 1.6 Cancelled Imagings Data: [id number] EXAMINATION: ONE VIEW CHEST XR CLINICAL INDICATION: Female, 44 years old.,SOB TECHNIQUE: Frontal chest projection is submitted. Examination is limited by patient positioning and technique. COMPARISON: 04/10/2022 FINDINGS: The lungs are well inflated and clear. No pneumothorax or sizable effusion. Moderate cardiomegaly.. IMPRESSION: No acute pulmonary process. Progressive cardiomegaly. [id number] LEFT VENTRICULAR WALL MOTION: NORMAL DOPPLER/COLOR FLOW: NORMAL COMMENTS: 1. MODERATE LEFT VENTRICULAR HYPERTROPHY 2. NORMAL LEFT VENTRICULAR SYSTOLIC FUNCTION, EJECTION FRACTION 60-65%, NORMAL WALL MOTION 3. NORMAL DIASTOLIC FX 4. NEGATIVE SALINE BUBBLE STUDY [id number] US CAROTID DUPLEX BILATERAL CLINICAL INDICATION: [facility] MAIN right sided weaknesss TECHNIQUE: Real-time grayscale, color flow, and spectral Doppler sonographic images were obtained of the extracranial carotid system using a linear transducer. Arterial peak systolic velocities are recorded as follows. COMPARISON: No prior exam. FINDINGS: RIGHT: Common carotid artery: 55 cm/s Internal carotid artery: 60 cm/s External carotid artery: 37 cm/s Right ICA/CCA ratio: 1.09 Plaque : Mildly echogenic noncalcified plaque. Vertebral artery: 32 LEFT: Common carotid artery: 45 cm/s Internal carotid artery: 96 cm/s. This is nonspecific but could be related to distal tortuosity. External carotid artery: 44 cm/s Left ICA/CCA ratio: 2.11 Plaque None Vertebral artery: 36 IMPRESSION: No hemodynamically significant stenosis (greater than 50%) within the extracranial internal carotid arteries. [id number] EXAMINATION: MRI BRAIN WITHOUT CONTRAST CLINICAL INDICATION: r/o CVA TECHNIQUE: Multiplanar multisequence MR images of the brain were obtained without intravenous contrast. Unless otherwise specified, incidental findings do not require dedicated imaging follow-up. COMPARISON: 07/29/2024 FINDINGS: INTRACRANIAL: 13 mm area of restricted diffusion is seen posterior left basal ganglia compatible with acute CVA. No hemorrhagic component. Old infarct noted in the right posterior parietal region. VASCULATURE: Normal signal voids in the larger intracranial arteries and dural venous sinuses. SINUSES: The paranasal sinuses and mastoid air cells are predominantly clear. BONE: The marrow signal pattern is within normal limits. IMPRESSION: 13 mm acute CVA posterior left basal ganglia. No hemorrhage, hydrocephalus or midline shift. Conclusions/Impression: Stage I NIKOLAY may be multifactorial CKD IV with Proteinuria -No NSAIDs HTN with CKD -Continue Coreg & Doxazosin -Continue Amlodipine Peripheral Edema -Continue Bumetanide DM II with CKD -RISS -Continue Tradjenta -Continue Mounjaro -Hold Metformin Anemia in chronic illness -Monitor H&H -Retacrit prn -Continue oral iron CKD MBD Secondary HyperParathyroidism -Continue Calcitriol Acute Klebsiella Cystitis with Hematuria -Continue Cefdinir -Continue cranberry tab
[2024-08-13] MEDS ORDERED: ENOXAPARIN 30 MG/0.3 ML SQ SCH (08:00)
== END 2024-08-12 12:06 | disposition home health service (06) | DRG 57 ==
LOC: 5TH 12:47
PROVIDERS: ADMIT Psychiatry & Neurology Neurology with Special Qualifications in Child Neurology; ATTEND Psychiatry & Neurology Neurology with Special Qualifications in Child Neurology
DX: I69.354 Hemiplegia and hemiparesis following cerebral infarction affecting left non-dominant side (principal); Z68.43 Body mass index [BMI] 50.0-59.9, adult; I13.0 Hypertensive heart and chronic kidney disease with heart failure and stage 1 through stage 4 chronic kidney disease, or unspecified chronic kidney disease; I50.30 Unspecified diastolic (congestive) heart failure; N17.9 Acute kidney failure, unspecified; N25.81 Secondary hyperparathyroidism of renal origin; N30.01 Acute cystitis with hematuria; I69.398 Other sequelae of cerebral infarction; R26.89 Other abnormalities of gait and mobility; I10 Essential (primary) hypertension; E66.01 Morbid (severe) obesity due to excess calories; E11.22 Type 2 diabetes mellitus with diabetic chronic kidney disease; N18.30 Chronic kidney disease, stage 3 unspecified; D63.8 Anemia in other chronic diseases classified elsewhere; B96.1 Klebsiella pneumoniae [K. pneumoniae] as the cause of diseases classified elsewhere; E78.5 Hyperlipidemia, unspecified; E03.9 Hypothyroidism, unspecified; G47.00 Insomnia, unspecified; F32.A Depression, unspecified; Z79.01 Long term (current) use of anticoagulants
CPT/HCPCS: 36415; 80048; 80053; 81001; 82040; 82607; 82947; 83036; 83735; 83880; 84100; 84134; 84550; 85025; 87077; 87086; 87088; 87186; 97110; 97112; 97116; 97161; 97165; 97530; 97542; J1644; J1650; J3535; Q5106

== ENCOUNTER 2024-11-08 09:07 | Inpatient (IN) | payer OTHER ==
[2024-11-08 10:28] LABS: Absolute Basophils 0.1 K/uL (0-0.5); Absolute Eosinophils 0.2 K/uL (0-0.5); Absolute Lymphocytes (CBC) 2.1 K/uL (0.7-4.9); Absolute Monocytes 0.8 K/uL (0.1-1.3); Absolute Neutrophil 6.7 K/uL (1.8-8.0); Basophils % 0.6 % (0-1.3); Eosinophils % 2.1 % (0-4.4); Hematocrit 28.1 % (36.0-45.0); Hemoglobin 9.4 g/dL (12.0-15.0); Lymphocytes % 21.6 % (15.3-44.8); MCH 30.6 pg (27.0-35.0); MCHC 33.4 g/dL (32.0-36.0); MCV 91.6 fL (80-100); MPV 7.3 fL (7.6-11.3); Monocytes % 7.7 % (3.3-12.3); Nucleated Red Blood Cells % 0.1 % (0-0); Platelets 336 thou/uL (152-406); RBC Red Blood Cell Count 3.07 M/uL (3.86-4.86); Red Cell Distribution Width 14.6 % (12.1-15.2)
[2024-11-08 10:29] LABS: PT Prothrombin Time 12.3 SECONDS (9.4-12.5); PTT, Activated Partial Thromb 38.2 SECONDS (24.3-36.9); Protime INR 1.1
[2024-11-08 10:51] LABS: Anion Gap 9.3 mEq/L (5.0-15.0); Troponin High Sensitivity 18.7 pg/mL (<58.9)
[2024-11-08 10:53] LABS: Potassium 4.3 mEq/L (3.5-5.1)
--- NOTE | 2024-11-08 11:46 | RAD REPORT ---
EXAM: CT brain without contrast HISTORY: Numbness COMPARISON: July 2024 TECHNIQUE: Multiple contiguous axial images were obtained and a CT of the brain without contrast.. Sagittal and coronal reconstruction performed. Automated exposure control, adjustment of the mA and/or kV according to patient size, and/or iterative reconstruction. Unless otherwise specified, incidental f indings do not require dedicated imaging follow-up FINDINGS: An intracranial bleed is not seen Ventricles are normal caliber No extra-axial fluid collection noted Subacute left basal ganglia infarction. Old right internal capsule/basal ganglia infarcts. Right occipital/parietal infarct. No fluid within the visualized sinuses or mastoids noted. IMPRESSION: No acute intracranial abnormality noted. If the patient continues to have symptoms to suggest an acute intracranial abnormality then MRI of th e brain would be recommended.
--- NOTE | 2024-11-08 11:55 | ER ---
Nurse's Notes [facility] Name: Mireille Donovan Age: 44 yrs Sex: Female : 1980 Arrival Date: 11/08/2024 Time: 09:07 Bed 2 Private MD: Diagnosis: Weakness;Chronic kidney disease, unspecified;Unspecified combined systolic (congestive) and diastolic (congestive) heart failure Presentation: 11/08 09:56 Chief complaint: Patient states: R SIDED WEAKNESS AND SLURRED SPEECH SINCE 2099. ha1 Coronavirus screen: At this time, the client does not indicate any symptoms associated with coronavirus-19. Ebola Screen: No symptoms or risks identified at this time. Initial Sepsis Screen: Does the patient meet any 2 criteria? No. Patient's initial sepsis screen is negative. Does the patient have a suspected source of infection? No. Patient's initial sepsis screen is negative. Risk Assessment: Do you want to hurt yourself or someone else? Patient reports no desire to harm self or others. Note STROKE ALERT DEFERRED BY PROVIDER. Onset of symptoms was November 07, 2024 at 21:00. 09:56 Method Of Arrival: Wheelchair ha1 09:56 Acuity: NICOLE 3 ha1 Triage Assessment: 09:57 General: Appears distressed, obese, Behavior is cooperative, appropriate for age, ha1 anxious. Pain: Denies pain. EENT: No deficits noted. Neuro: Level of Consciousness is awake, alert, obeys commands, Oriented to Appropriate for age Weakness in right Speech is slurred. Cardiovascular: No deficits noted. Respiratory: No deficits noted. GI: No signs and/or symptoms were reported involving the gastrointestinal system. : No signs and/or symptoms were reported regarding the genitourinary system. Derm: No deficits noted. Musculoskeletal: No deficits noted. Historical: - Allergies: :57 No Known Allergies; ha1 - PMHx: :57 Asthma; CHF; Hypothyroidism; Hypertension; Diabetes - IDDM; stroke; CVA; ha1 - PSHx: :57 Adenoid excision; section; knee; Tonsillectomy; ha1 - Immunization history:: Adult Immunizations up to date. - Infectious Disease History:: Denies. - Social history:: Smoking status: Patient denies any tobacco usage or history of. Screenin:21 [facility] ED Fall Risk Assessment (Adult) History of falling in the last 3 months, db including since admission No falls in past 3 months (0 pts) Confusion or Disorientation No (0 pts) Intoxicated or Sedated No (0 pts) Impaired Gait Yes (1 pt) Mobility Assist Device Used Yes (1 pt) Altered Elimination No (0 pt) Score/Fall Risk Level 0 - 2 = Low Risk Oriented to surroundings, Maintained a safe environment. Abuse screen: Denies threats or abuse. Denies injuries from another. Nutritional screening: No deficits noted. Tuberculosis screening: No symptoms or risk factors identified. Assessment: 10:21 Reassessment: Patient appears in no apparent distress at this time. Patient and/or db family updated on plan of care and expected duration. Pain level reassessed. Patient is alert, oriented x 3, equal unlabored respirations, skin warm/dry/pink. General: Appears in no apparent distress. comfortable, Behavior is calm, cooperative. Pain: Complains of pain in right cheek. Neuro: Level of Consciousness is awake, alert, obeys commands, Oriented to person, place, time, situation. Respiratory: Airway is patent Respiratory effort is even, unlabored, Respiratory pattern is regular, symmetrical. 12:00 Reassessment: Patient appears in no apparent distress at this time. Patient and/or db family updated on plan of care and expected duration. Pain level reassessed. Patient is alert, oriented x 3, equal unlabored respirations, skin warm/dry/pink. PATIENT WHEELED TO RESTROOM. 13:00 Reassessment: Patient appears in no apparent distress at this time. No changes from db previously documented assessment. Patient and/or family updated on plan of care and expected duration. Pain level reassessed. Patient is alert, oriented x 3, equal unlabored respirations, skin warm/dry/pink. 14:41 Reassessment: Patient appears in no apparent distress at this time. Patient and/or ko1 family updated on plan of care and expected duration. Pain level reassessed. Patient is alert, oriented x 3, equal unlabored respirations, skin warm/dry/pink. Vital Signs: 09:56 BP 183 / 89; Pulse 84; Resp 16; Temp 98; Pulse Ox 100% ; ha1 11:24 Weight 154.67 kg (M); db 12:38 BP 187 / 88; Pulse 78; Resp 16; Pulse Ox 100% ; ko1 13:49 BP 165 / 74; Pulse 76; Resp 16; Temp 98; Pulse Ox 100% on R/A; db 14:15 BP 147 / 88; Pulse 74; Resp 16; Pulse Ox 100% on R/A; db ED Course: 09:09 Patient arrived in ED. ra3 09:11 [facility] Dee [facility] dr5 09:11 Allen Garcia MD is Attending Physician. dr5 09:56 Triage completed. ha1 10:10 Initial lab(s) drawn, by me, sent to lab. Inserted saline lock: 20 gauge in right db antecubital area, using aseptic technique. Blood collected. Flushed with 10 mL NS. 10:20 Chelsi Chacon, OTONIEL is Primary Nurse. db 10:22 Patient has correct armband on for positive identification. Bed in low position. Call db light in reach. Side rails up X 1. 10:44 EKG done, by ED staff, reviewed by Rambo SCHMITT. ko1 10:44 Provided Education on: labs, tests. ko1 10:44 Door closed. Noise minimized. Lights dimmed. Warm blanket given. ko1 11:33 CT Head Brain wo Cont In Process Unspecified. EDMS 11:43 Nurse Practitioner and/or Physician Nailer Hand to see patient. ko1 11:52 Allen Garcia MD is Hospitalizing Provider. dr5 11:52 Moise Porter MD is Hospitalizing Provider. dr5 12:00 Arm band placed on Patient placed in an exam room. db 12:08 Chest Single View XRAY In Process Unspecified. EDMS 12:24 Urinalysis w/ reflexes Sent. ko1 14:43 No provider procedures requiring assistance completed. Patient admitted, IV remains in db place. Administered Medications: 12:24 Drug: Aspirin PO Chewable Tablet 324 mg PO once; 81 mg tablets x 4 Route: PO; ko1 14:43 Follow up: Response: No adverse reaction db Medication: 10:21 VIS not applicable for this client. db Outcome: 11:54 Decision to Hospitalize by Provider. dr5 14:41 Admitted to Med/surg accompanied by tech, room 222, with chart, ko1 14:41 Condition: stable 14:41 Instructed on the need for admit, 14:44 Patient left the ED. db Signatures: Dispatcher [employer] EDMS Yanet Nash RN RN ha1 Lesley Ba RN RN ko1 Chelsi Chacon RN RN Maria Guadalupe Friedman Dustin, ALLY-C MEDICAL CARE EVALUATION SPECIALIST-Cdr5
--- NOTE | 2024-11-08 11:55 | EDPHYS ---
Physician Documentation [facility] Name: Mireille Donovan Age: 44 yrs Sex: Female : 1980 Arrival Date: 11/08/2024 Time: 09:07 Bed 2 Private MD: BERNIE Physician Allen Garcia HPI: 11/08 10:03 This 44 yrs old Black Female presents to ER via Wheelchair with complaints of right dr5 sided facial numbness. 10:03 Patient is a 44-year-old female with history of asthma, CHF, hypothyroidism, dr5 hypertension, diabetes, CVA 3 months ago. Patient reports that she has had right-sided deficits and decreased strength since her stroke 3 months ago. Patient reports last night around 9 PM her face started becoming numb and tingling. Patient also reports that she is not compliant with her medications due to her not needing them. Patient denies chest pain, shortness of breath at rest, nausea, vomiting, diarrhea, or fever. Patient did note that she had 1 episode of hematuria with voiding this morning. Patient denies dysuria.. Historical: - Allergies: 09:57 No Known Allergies; ha1 - PMHx: 09:57 Asthma; CHF; Hypothyroidism; Hypertension; Diabetes - IDDM; stroke; CVA; ha1 - PSHx: 09:57 Adenoid excision; section; knee; Tonsillectomy; ha1 - Immunization history:: Adult Immunizations up to date. - Infectious Disease History:: Denies. - Social history:: Smoking status: Patient denies any tobacco usage or history of. ROS: 10:03 Constitutional: as per hpi dr5 Exam: 10:03 Constitutional: This is a well developed, well nourished patient who is awake, alert, dr5 and in no acute distress. Head/Face: Normocephalic, atraumatic. Neck: Trachea midline, no thyromegaly or masses palpated, and no cervical lymphadenopathy. Supple, full range of motion without nuchal rigidity, or vertebral point tenderness. No Meningismus. Chest/axilla: Normal chest wall appearance and motion. Nontender with no deformity. No lesions are appreciated. Cardiovascular: Regular rate and rhythm with a normal S1 and S2. Normal PMI, no JVD. No pulse deficits. Abdomen/GI: Soft, non-tender, non-distended Back: No spinal tenderness. No costovertebral tenderness. Full range of motion. 10:03 Neuro: Orientation: is normal, appropriate for stated age, to person, place, time \T\ situation. Mentation: is normal, appropriate for stated age, Memory: is normal, appropriate for stated age, Cranial nerves: visual andrews are intact. extraocular movements are intact, Decreased sensation on forehead, right eye, right cheek, right jaw and right zygomatic area, No facial droop noted. Bilaterally eyebrow raise. . no gross hearing deficit,. Speech is clear and appropriate. Gag reflex present. Tongue strength is normal, Motor: Sensation: numbness, tingling, that is mild, of the forehead, right eye, right cheek, right jaw and right zygomatic area, Gait: shuffling, needs assistance, uses a walker, Patient walks with walker at baseline., Vital Signs: 09:56 BP 183 / 89; Pulse 84; Resp 16; Temp 98; Pulse Ox 100% ; ha1 11:24 Weight 154.67 kg (M); db 12:38 BP 187 / 88; Pulse 78; Resp 16; Pulse Ox 100% ; ko1 13:49 BP 165 / 74; Pulse 76; Resp 16; Temp 98; Pulse Ox 100% on R/A; db 14:15 BP 147 / 88; Pulse 74; Resp 16; Pulse Ox 100% on R/A; db MDM: 09:12 Medical Screening Exam initiated dr5 11:09 ED course: Patient creatinine is too elevated to do CT angios. Will only do CT without dr5 contrast.. 11:58 Differential Diagnosis altered mental status, CVA, CHF Exacerbation, Electrolyte dr5 Abnormality. Differential diagnosis: CVA, CHF, CKD. Data reviewed: vital signs, nurses notes. Consideration of Admission/Observation Patient was admitted/placed on observation. Care significantly affected by the following chronic conditions: Diabetes, Hypertension, Congestive Heart Failure, Chronic Kidney Disease. Care significantly affected by the following Social Determinants of Health: Poor access to healthcare and/or lack of insurance, Poor access to transportation, Problems related to employment. Counseling: I had a detailed discussion with the patient and/or guardian regarding the historical points, exam findings, and any diagnostic results supporting the discharge/admit diagnosis, the presence of at least one elevated blood pressure reading (>120/80) during this emergency department visit, lab results, radiology results, the need for further work-up and treatment in the hospital. ED course: Discussed with patient need for further management and workup. Likely needs MRI given patient cannot have contrast from CKD. Previous records of creatinine are at baseline. Will get chest x-ray and BNP to evaluate for CHF exacerbation.. 11/08 10:01 Order name: Basic Metabolic Panel; Complete Time: 11:00 11/08 10:01 Order name: CBC with Diff; Complete Time: 10:30 11/08 10:01 Order name: High Sensitivity Troponin; Complete Time: 11:11/08 10:01 Order name: Protime (+inr); Complete Time: 10:30 11/08 10:01 Order name: Ptt, Activated; Complete Time: :11/08 10:01 Order name: Urinalysis w/ reflexes; Complete Time: 12:59 dr5 11/08 11:41 Order name: NT PRO-BNP; Complete Time: 13:25 11/08 10:01 Order name: CT Head Brain wo Cont; Complete Time: 11:48 11/08 11:41 Order name: Chest Single View XRAY; Complete Time: 12:27 11/08 10:01 Order name: Accucheck; Complete Time: 10:33 11/08 10:01 Order name: Cardiac monitoring; Complete Time: 10:11/08 10:01 Order name: EKG - Nurse/Tech; Complete Time: 10:11/08 10:01 Order name: IV Saline Lock; Complete Time: 10:11/08 10:01 Order name: Labs collected and sent; Complete Time: 10:11/08 10:01 Order name: NPO; Complete Time: 10:11/08 10:01 Order name: O2 Per Protocol; Complete Time: 10:11/08 10:01 Order name: O2 Sat Monitoring; Complete Time: 10:11/08 10:01 Order name: Stroke Swallow Screen; Complete Time: 10: dr5 EC:37 Rate is 77 beats/min. Rhythm is regular. QRS [place] is Normal. NE interval is normal at dr5 194 msec. QRS interval is normal at 92 msec. QT interval is normal at 422 msec. Administered Medications: 12:24 Drug: Aspirin PO Chewable Tablet 324 mg PO once; 81 mg tablets x 4 Route: PO; ko1 14:43 Follow up: Response: No adverse reaction db Disposition Summary: 11/08/24 11:54 Hospitalization Ordered Notes: Hospitalization Status: Inpatient Admission dr5 Provider: Moise Porter Location: Telemetry/MedSurg (Inpatient) dr5 Condition: Stable dr5 Problem: new dr5 Symptoms: are unchanged dr5 Bed/Room Type: Standard dr5 Room Assignment: 222(11/08/24 13:42) ja Diagnosis - Weakness dr5 - Chronic kidney disease, unspecified dr5 - Unspecified combined systolic (congestive) and diastolic (congestive) heart failure dr5 Forms: - Medication Reconciliation Form dr5 - SBAR form dr5 - Leadership Thank You Letter dr5 Addendum: 11/10/2024 15:30 Co-signature as Attending Physician, Allen Garcia MD I agree with the assessment and c lomeli plan of care. Signatures: Dispatcher [employer] EDAllen Zuleta MD MD cha Attema, Lee, COUNTER DISH CARRIER-C COUNTER DISH CARRIER-Cla1 Bc Larson RN RN ja1 Divya Worthington Heidy, RN RN ha1 Lesley Ba RN RN ko1 Rambo Dee, COUNTER DISH CARRIER-C COUNTER DISH CARRIER-Cdr5 Chelsi Chacon RN db Corrections: (The following items were deleted from the chart) 11/08 10:02 10:01 BASIC METABOLIC PANEL+C.LAB.BRZ ordered. EDMS EDMS 10:02 10:01 CBC+H.LAB.BRZ ordered. EDMS EDMS 10:02 10:01 Troponin High Sensitivity+C.LAB.BRZ ordered. EDMS EDMS 10: 10:01 PROTIME (+INR)+COAG.LAB.BRZ ordered. EDMS EDMS 10:02 10:01 PTT, ACTIVATED+COAG.LAB.BRZ ordered. EDMS EDMS 10:02 10:02 Head Angio+CT.RAD.BRZ ordered. EDMS EDMS 10: 10:02 Neck Angio+CT.RAD.BRZ ordered. EDMS EDMS 10:02 10:02 Head Brain Wo Cont+CT.RAD.BRZ ordered. EDMS EDMS 10:02 10:02 Urinalysis+U.LAB.BRZ ordered. EDMS EDMS 11:44 11:44 PROBNP+CARMENZ ordered. EDMS EDMS 13:20 11:54 dr5 eb 13:42 13:20 201 eb ja1
--- NOTE | 2024-11-08 12:16 | RAD REPORT ---
Procedure: Chest Single View HISTORY: Shortness of breath COMPARISON: July 2024 FINDINGS: The lungs appear clear of acute infiltrate. No significant pleural effusion noted. The heart is moderately enlarged.. IMPRESSION: No acute abnormality is displayed.
[2024-11-08] MEDS ORDERED: ASPIRIN 81 MG CHEWABLE TABLET ONE (12:17)
[2024-11-08 12:56] LABS: Specific Gravity 1.014 (1.005-1.030); Sqamous Epithelial <5 /HPF (None Seen); Urine Bacteria None Seen /HPF (<20); Urine Bilirubin NEGATIVE (Negative); Urine Blood Negative (Negative); Urine Clarity Turbid (Clear); Urine Color Light-Yellow (Yellow); Urine Culture Reflex Order NOT NEEDED; Urine Glucose NEGATIVE (Negative); Urine Ketones NEGATIVE (Negative); Urine Microscopic Reflex YN ORDER UMIC; Urine Nitrite NEGATIVE (Negative); Urine Protein 1+ (Negative); Urine RBC <5 /HPF (None Seen); Urine Urobilinogen Normal (Normal); Urine WBC <5 /HPF (<5); Urine pH 5.5 (5.0-7.0)
[2024-11-08] MEDS ORDERED: ACETAMINOPHEN 500 MG TAB PO PRN (13:56)
[2024-11-08] MEDS ORDERED: ONDANSETRON 4 MG/2 ML VIAL IV PRN (13:56)
[2024-11-08] MEDS: NA CHLORIDE 0.9% 1,000 ML IV SCH (14:00)
--- NOTE | 2024-11-08 14:35 | P.HP ---
Certification for Inpatient Patient admitted to: Observation With expected LOS: <2 Midnights Patient will require the following post-hospital care: None Practitioner: I am a practitioner with admitting privileges, knowledge of patient current condition, hospital course, and medical plan of care. Services: Services provided to patient in accordance with Admission requirements found in Title 42 Section 412.3 of the Code of Federal Regulations Patient History Date of Service: 11/08/24 Reason for admission: Right sided paresthesias, weakness History of Present Illness: 44-year-old female with history of lmd-ceuqfpl-ryfdoqxrt diabetes, hypertension, previous CVA presents emergency department chief complaint of right lower extremity weakness, right-sided paresthesias, slurred speech. She reports symptoms began around 8 or 9 PM last night on 11/07. She had a recent stroke in July 2024 to the posterior left basal ganglia. She denies taking aspirin, Plavix or a statin outpatient. Patient was evaluated in the emergency department labs are significant for A creatinine of 2.71 which is similar to baseline, hemoglobin 9.4 [address]ocrit 28[address] head was negative for acute findings, chest x-ray unremarkable. Patient does have drift of the right lower extremity, mild slurred speech, paresthesias of the right side. Given aspirin in ED, will admit for further evaluation management possible ischemic CVA versus TIA Allergies hydralazine Allergy (Severe, Verified 08/10/24 12:15) Home Medications: Sertraline [Zoloft*] 100 mg PO DAILY 11/16/16 Atorvastatin Calcium [Lipitor] 80 mg PO BEDTIME #0 tab 11/18/16 Albuterol Sulfate [Albuterol Sulfate 0.083% Neb Soln] 0.63 mg NEB Q6HP PRN 04/11/22 Budesonide/Formoterol Fumarate [Symbicort 160-4.5 Mcg Inhaler] 2 puff IH BID 04/11/22 Insulin Aspart [Novolog Flexpen] 12 unit SQ TIDWM 04/11/22 Linagliptin [Tradjenta] 5 mg PO DAILY 04/11/22 Calcitrol [Rocaltrol*] 0.25 mcg PO DAILY #30 cap 04/17/22 Montelukast Sodium [Singulair] 10 mg PO DAILY #30 tablet 04/17/22 Vit D3/Vit K2/Calc Frutoborate [Move Free Byzir-Tjicda-X8-D3] 1 each PO DAILY #30 tablet 04/17/22 carvediloL [Coreg] 25 mg PO BID #60 tablet 04/17/22 Amlodipine [Norvasc*] 10 mg PO DAILY 07/30/24 Bumetanide 2 mg PO DAILY 07/30/24 Doxazosin [Cardura*] 4 mg PO BEDTIME 07/30/24 Levothyroxine [Synthroid*] 75 mcg PO [id number] 07/30/24 Metformin ER [Glucophage ER*] 500 mg PO DAILY AT SUPPER 07/30/24 Tirzepatide [Mounjaro] 5 mg SQ Q7D 07/30/24 Cefdinir [Cefdinir*] 300 mg PO BID #10 cap 08/12/24 Clopidogrel Bisulfate [Plavix*] 75 mg PO DAILY #30 08/12/24 Cranberry Fruit Extract 200 mg PO BID cap 08/12/24 Ferrous Sulfate [Ferrous Sulfate*] 325 mg PO DAILY tab 08/12/24 Magnesium Oxide [Mag 0X*] 400 mg PO BID tab 08/12/24 Melatonin [Melatonin*] 3 mg PO BEDTIME PRN PRN 08/12/24 - Past Medical/Surgical History Diabetic: Yes -: HTN -: CVA -: DM II -: CKD IV/ Proteinuria (Dr. Lee/ Redd) -: C SECTION -: RIGHT KNEE SURGERY - Family History Mother -: Hypertension, Diabetes Father -: Hypertension, Diabetes, Stroke - Social History Alcohol use: No CD- Drugs: No Caffeine use: Yes Place of Residence: Home Review of Systems 10-point ROS is otherwise unremarkable Neurological: Weakness, Other (Paresthesias) Physical Examination - Physical Exam General: Alert, In no apparent distress, Oriented x3 HEENT: Atraumatic, PERRLA Neck: Supple, 2+ carotid pulse no bruit, No LAD Respiratory: Clear to auscultation bilaterally, Normal air movement Cardiovascular: Regular rate/rhythm, Normal S1 S2 Gastrointestinal: Normal bowel sounds, No tenderness Musculoskeletal: No tenderness Integumentary: No rashes Neurological: Normal gait, Normal tone, Normal affect, Other (NIH 2), Abnormal speech, Abnormal sensation Lymphatics: No axilla or inguinal lymphadenopathy - Studies Laboratory Data (last 24 hrs) 11/08/24 11/08/24 11/08/24 10:15 10:15 10:15 WBC 9.80 Hgb 9.4 L Hct 28.1 L Plt Count 336 PT 12.3 INR 1.10 APTT 38.2 H Sodium 140 Potassium 4.3 BUN 35 H Creatinine 2.71 H Glucose 105 Assessment and Plan - Plan Assessment: Right lower extremity weakness, right-sided paresthesias, slurred speech rule out CVA-history of CVA recently CKD 4 Diabetes mellitus type [id number] Hypertension Plan: Right lower extremity weakness, right-sided paresthesias, slurred speech rule out CVA-history of CVA recently July had left basal ganglia CVA CT negative for acute findings will obtain MRI, PT consult Continue aspirin, Plavix, statin patient was not taking his medications outpatient- Continue blood pressure medications Neurology consultation Serial neuroexams CKD 4 Nephrology consult continue home medications when verified monitor renal function daily Diabetes mellitus type [id number]-fxjyasfgf ACHS Accu-Chek, sliding scale insulin Hypertension Continue home medications when verified DVT PPX: Heparin subcu for DVT prophylaxis given renal dysfunction, avoiding Lovenox Code status: Full Discharge Plan: Home Plan to discharge in: 24 Hours - Advance Directives Does patient have a Living Will: No Does patient have a Durable POA for Healthcare: No - Code Status/Comfort Care Code Status Assessed: Yes (Full code) Critical Care: No Time Spent Managing Pts Care (In Minutes): 61
[2024-11-08 14:47] VITALS: BMI 55.0
[2024-11-08 15:11] VITALS: O2SAT 100
[2024-11-08] MEDS ORDERED: ALBUTEROL 2.5 MG/3 ML NEB SOL NEB PRN (15:19)
[2024-11-08] MEDS: ISOSORBIDE MONO 10 MG TAB PO SCH (20:09)
[2024-11-08] MEDS: DOXAZOSIN 4 MG TAB PO SCH (20:09)
[2024-11-08] MEDS: carvediloL 25 MG TAB PO SCH (20:10)
[2024-11-08] MEDS: ATORVASTATIN 40 MG TAB PO SCH (20:10)
[2024-11-08] MEDS: HYDRALAZINE HCL 20 MG/ML VIAL IV PRN (20:11)
[2024-11-08] MEDS: HEPARIN 5000 UNIT/ML 1 ML VIAL SQ SCH (20:11)
[2024-11-08] MEDS: DULERA 200/5 (MOMETASONE/FORMOTEROL) INHALER IH SCH (20:18)
[2024-11-09] MEDS: LEVOTHYROXINE SOD 0.075 MG TAB PO SCH (05:05)
[2024-11-09 06:35] LABS: Absolute Basophils 0.1 K/uL (0-0.5); Absolute Eosinophils 0.2 K/uL (0-0.5); Absolute Monocytes 0.8 K/uL (0.1-1.3); Absolute Neutrophil 6.3 K/uL (1.8-8.0); Basophils % 0.6 % (0-1.3); Hematocrit 26.7 % (36.0-45.0); Hemoglobin 8.8 g/dL (12.0-15.0); Lymphocytes % 21.4 % (15.3-44.8); MCH 30.2 pg (27.0-35.0); MCV 91.5 fL (80-100); MPV 7.4 fL (7.6-11.3); Monocytes % 8.6 % (3.3-12.3); Neutrophils % 67.4 % (41.7-73.7); Platelets 314 thou/uL (152-406); RBC Red Blood Cell Count 2.92 M/uL (3.86-4.86); Red Cell Distribution Width 14.5 % (12.1-15.2)
[2024-11-09 06:50] LABS: Anion Gap 7.9 mEq/L (5.0-15.0); Potassium 3.9 mEq/L (3.5-5.1)
[2024-11-09] MEDS: LORazepam 2 MG/ML VIAL IV PRN (08:16)
[2024-11-09] MEDS: GABAPENTIN 300 MG CAP PO SCH (09:36)
[2024-11-09] MEDS: BUMETANIDE 1 MG TABLET PO SCH (09:36)
[2024-11-09] MEDS: ASPIRIN EC 81 MG TAB PO SCH (09:36)
[2024-11-09] MEDS: CLOPIDOGREL 75 MG TABLET PO SCH (09:36)
--- NOTE | 2024-11-09 09:59 | P.CNS ---
Date of Consult: 11/09/24 Reason for Consult: CKD Requesting Physician: Moise Porter Chief Complaint: Right sided paresthesias, weakness History of Present Illness: 44-year-old female with history of gpp-zbftqns-rmjdrkabb diabetes, hypertension, previous CVA presents emergency department chief complaint of right lower extremity weakness, right-sided paresthesias, slurred speech. She reports symptoms began around 8 or 9 PM last night on 11/07. She had a recent stroke in July 2024 to the posterior left basal ganglia. She denies taking aspirin, Plavix or a statin outpatient. Patient was evaluated in the emergency department labs are significant for A creatinine of 2.71 which is similar to baseline, hemoglobin 9.4 hematocrit 28.[address] head was negative for acute findings, chest x-ray unremarkable. Patient does have drift of the right lower extremity, mild slurred speech, paresthesias of the right side. Given aspirin in ED, will admit for further evaluation management possible ischemic CVA versus TIA [id number] 10:03 This 44 yrs old Black Female presents to ER via Wheelchair with complaints of right dr5 sided facial numbness. 10:03 Patient is a 44-year-old female with history of asthma, CHF, hypothyroidism, dr5 hypertension, diabetes, CVA 3 months ago. Patient reports that she has had right-sided deficits and decreased strength since her stroke 3 months ago. Patient reports last night around 9 PM her face started becoming numb and tingling. Patient also reports that she is not compliant with her medications due to her not needing them. Patient denies chest pain, shortness of breath at rest, nausea, vomiting, diarrhea, or fever. Patient did note that she had 1 episode of hematuria with voiding this morning. Patient denies dysuria.. Allergies hydralazine Allergy (Severe, Verified 08/10/24 12:15) Home medications list reviewed: Yes Home Medications: Albuterol Sulfate [Albuterol Sulfate 0.083% Neb Soln] 0.63 mg NEB Q6HP PRN 04/11/22 Budesonide/Formoterol Fumarate [Symbicort 160-4.5 Mcg Inhaler] 2 puff IH PRN 04/11/22 Linagliptin [Tradjenta] 5 mg PO DAILY 04/11/22 carvediloL [Coreg] 25 mg PO BID #60 tablet 04/17/22 Bumetanide 2 mg PO DAILY 07/30/24 Doxazosin [Cardura*] 4 mg PO BEDTIME 07/30/24 Levothyroxine [Synthroid*] 75 mcg PO [id number] 07/30/24 Metformin ER [Glucophage ER*] 500 mg PO BID 07/30/24 Tirzepatide [Mounjaro] 7.5 mg SQ Q7D 07/30/24 Gabapentin 300 mg PO DAILY 11/08/24 Isosorbide [place] (Bid) [Ismo 10 mg Tab*] 10 mg PO BID 11/08/24 - Past Medical/Surgical History Diabetic: Yes -: HTN -: CVA -: DM II -: CKD IV/ Proteinuria (Dr. Lee/ Redd) -: CHF -: Urinary Retension -: C SECTION -: RIGHT KNEE SURGERY -: T & A - Family History Mother Medical History: Hypertension, Diabetes Father Medical History: Hypertension, Diabetes, Stroke - Social History Smoking Status: Unknown if ever smoked Alcohol use: No CD- Drugs: No Caffeine use: Yes Place of Residence: Home Review of Systems 10-point ROS is otherwise unremarkable Neurological: Weakness Physical Examination Temp Pulse Resp BP Pulse Ox 98.1 F 91 H 12 162/77 H 100 11/09/24 08:00 11/09/24 08:00 11/09/24 08:00 11/09/24 08:00 11/09/24 08:00 General: In no apparent distress, Oriented x3, Cooperative HEENT: Atraumatic Neck: Supple Respiratory: Normal air movement Cardiovascular: No edema, Regular rate/rhythm Gastrointestinal: Soft and benign, Non-distended Musculoskeletal: No clubbing, No contractures Integumentary: No rashes, No cyanosis Neurological: Normal speech Laboratory Data (last 24 hrs) 11/08/24 11/08/24 11/08/24 10:15 10:15 10:15 WBC 9.80 Hgb 9.4 L Hct 28.1 L Plt Count 336 PT 12.3 INR 1.10 APTT 38.2 H Sodium 140 Potassium 4.3 BUN 35 H Creatinine 2.71 H Glucose 105 Imagings Data: [id number] Procedure: Chest Single View HISTORY: Shortness of breath COMPARISON: July 2024 FINDINGS: The lungs appear clear of acute infiltrate. No significant pleural effusion noted. The heart is moderately enlarged.. IMPRESSION: No acute abnormality is displayed. [id number] EXAM: CT brain without contrast HISTORY: Numbness COMPARISON: July 2024 TECHNIQUE: Multiple contiguous axial images were obtained and a CT of the brain without contrast.. Sagittal and coronal reconstruction performed. Automated exposure control, adjustment of the mA and/or kV according to patient size, and/or iterative reconstruction. Unless otherwise specified, incidental findings do not require dedicated imaging follow-up FINDINGS: An intracranial bleed is not seen Ventricles are normal caliber No extra-axial fluid collection noted Subacute left basal ganglia infarction. Old right internal capsule/basal ganglia infarcts. Right occipital/parietal infarct. No fluid within the visualized sinuses or mastoids noted. IMPRESSION: No acute intracranial abnormality noted. If the patient continues to have Conclusions/Impression: CKD IV with Proteinuria -No NSAIDs HTN with CKD -Continue Coreg 25mg BID -Increase Doxazosin 4mg BID -Continue Isosorbid Peripheral Edema -Continue Bumex DM II with CKD -RISS prn Anemia in chronic illness -Retacrit prn CKD MBD Secondary HyperParathyroidism -Start Calcitriol Hospitalist and ER notes reviewed Thank you kindly for the consultation
--- NOTE | 2024-11-09 10:53 | RAD REPORT ---
EXAMINATION: MRI BRAIN WITHOUT CONTRAST CLINICAL INDICATION: Female, 44 years old.[facility] Right leg weakness, slurred speech TECHNIQUE: Multiplanar multisequence MR images of the brain were obtained without intravenous contras t. Unless otherwise specified, incidental findings do not require dedicated imaging follow-up. COMPARISON: 07/30/[address] 11/08/2024 FINDINGS: INTRACRANIAL: Midline structures are unremarkable. Crescentic focus of diffusion signal abnormality along the posterior most left posterior limb of inte rnal capsule, extending along the centrum semiovale bowel. Another focus of diffusion signal abnormality present within the lentiform nucleus on the right. Right parietal region of encephalomalacia is stable. Bilateral basal ganglia/centrum semiovale foci o f hypointensity and surrounding gliosis are stable, suggestive of remote small infarcts. There is mild diffuse parenchymal brain atrophy with moderateT2/FLAIR hyperintensities in the periven tricular and deep white matter regions, likely representing chronic microvascular ischemic changes, stable. There is no mass effect or midline shift. No abnormal extraaxial fluid collection. 2 foci of susceptibility signal abnormality in the right basal ganglia region are stable, suggestive of remote microhemorrhages. Small extra-axial focus of mineralization along the right frontal convexity, may represent a calcifie d sessile meningioma, stable in appearance. VASCULATURE: Normal signal voids in the larger intracranial arteries and dural venous sinuses. SINUSES: The paranasal sinuses and mastoid air cells are predominantly clear. BONE: The marrow signal pattern is within normal limits. IMPRESSION: There are 2 new foci of diffusion signal abnormality in the left posterior limb of internal capsule e xtending to the centrum semiovale, and right lentiform nucleus, concerning for acute to subacute infarcts. Other chronic findings including findings suggestive of remote ischemia and chronic small vessel isch emic changes appear stable.
[2024-11-09] MEDS: LABETALOL 20 MG/4ML SYRINGE IV ONE (14:48)
--- NOTE | 2024-11-09 15:00 | P.PN ---
Date of Service: 11/09/24 Subjective: Still with right lower extremity weakness, right facial paresthesias No other acute events overnight ROS: 10 point ROS as noted above, otherwise negative Physical exam GEN: Alert, oriented, NAD HEENT: Normal conjunctiva, sclera anicteric CV: Regular rate and rhythm, no edema Pulm: Nonlabored respirations on room air ABD: Soft, nontender, nondistended MSK: No joint tenderness Integumentary: No rashes Neuro: Normal speech, normal affect, right lower extremity weakness, facial paresthesias NIH score 2 Vitals reviewed Assessment: Acute CVA of the Left posterior limb of internal capsule extending to the centrum semiovale, and right lentiform nucleus CKD 4 Diabetes mellitus type [id number] Hypertension Plan: Acute CVA of the Left posterior limb of internal capsule extending to the centrum semiovale, and right lentiform nucleus July had left basal ganglia CVA MRI positive for acute CVA Continue aspirin, Plavix, statin patient was not taking his medications outpatient- Continue blood pressure medications, allow for permissive hypertension to 220/110 Neurology consultation Serial neuroexams Patient did well with PT today, ordered for outpatient PT in place Blood pressure still markedly elevated, will continue to monitor patient in hospital at least overnight NIH score 2 CKD 4 Nephrology consult continue home medications when verified monitor renal function daily Diabetes mellitus type [id number]-vgzbxnmsw ACHS Accu-Chek, sliding scale insulin Hypertension Continue home medications when verified DVT PPX: Heparin subcu for DVT prophylaxis given renal dysfunction, avoiding Lovenox Code status: Full Discharge Plan: Home Plan to discharge in: 24 Hours Time Spent Managing Pts Care (In Minutes): 35
[2024-11-09] MEDS: DOXAZOSIN 4 MG TAB PO SCH (20:47)
[2024-11-09] MEDS: DOCUSATE NA 100 MG CAP PO SCH (21:00)
--- NOTE | 2024-11-09 21:59 | CON ---
Reason For Consultation: New stroke. History Of Present Illness: Ms. Donovan is a 44-year-old, right-handed, patient with kdc-xlyyqle-qprebjbkk diabetes mellitus, hypertension, multiple prior strokes, and class 3-4 obesity who developed worsening symptoms of right-sided weakness, numbness, or balance around 8:00 or 9:00 p. m. on 11/07/2024. She most recently had a stroke in July 2024. Stroke involved the left basal ganglia. However, following the stroke, she was not compliant with aspirin, Plavix, or statin. Her evaluation in the emergency room showed elevated creatinine and her CT scan of the head showed no acu te findings. The MRI, however, which is done today identified multiple areas of stroke including new foci to diffusion signal abnormalities in the left posterior limb internal capsule extending into th e centrum semiovale and right lentiform nucleus. This is mapped to the patient's right-sided symptom s. In addition, there were some other chronic issues on the left. She did have a right parietal enc ephalomalacia from a prior stroke. There was left posterior limb of the internal capsule stroke is n oted and that the foci of susceptibility in the right basal ganglia were suggestive of remote hemorrh ages. In addition, mineralization along the right frontal convexity may represent calcified sessile meningioma, which appears to be stable. The patient said that since onset, she has had some moderate recovery of the right-sided numbness, weakness, and is able to stand and ambulate and she did so wit h physical therapist earlier today. Her CBC with differential was remarkable for mild anemia and basic metabolic panel showed chronic quinton vation of creatinine. She was 2.71 prior to hydration and 2.66 following hydration and blood sugars were well controlled. LDL cholesterol 91, HDL 36, cholesterol 145, cholesterol HDL ratio 4.03, and u rinalysis is essentially unremarkable except for 1+ protein and turbid clarity. Past Medical History: Morbid obesity, hypertension, prior strokes, diabetes mellitus type 2, stage 4 kidney disease followed by renal service. Past Surgical History: , right knee surgery. Family History: Positive for diabetes and hypertension in mother and father and stroke in the father . Allergies: HYDRALAZINE. Current Medications: Tylenol 500 mg every 4 hours as needed, albuterol nebulizer 0.63 mg nebulizer e very 6 hours as needed, aspirin 162 mg daily, Lipitor 40 mg at bedtime, Bumex 2 mg daily, Rocaltrol 0 .5 mcg daily, carvedilol 25 mg twice daily, Plavix 75 mg daily, Colace 100 mg twice daily, Cardura 4 mg twice daily, vitamin D 50,000 units weekly, gabapentin 300 mg daily. She has heparin 5000 units e very 12 hours, isosorbide mononitrate 10 mg twice daily, Synthroid 0.075 mg daily, Zofran 4 mg every 6 hours as needed. Review of Systems: She reports right-sided weakness, numbness and coordination, balance issues. Otherwise mild myalgias , arthralgias, but no rash. No psychiatric issues. No other complaints. Social History: No alcohol, tobacco, or IV drug use. Lives in single family home. Physical Examination: Vital Signs: Blood pressure 185/80, pulse 80, respiratory rate 12-16, temperature 98.1, oxygen satur ation 98% to 100% on room air. Weight 341 pounds, height 5 feet 6 inches, BMI 55. General: Ms. Donovan is lying in bed. She is in no significant distress. She does appear to be a cla ss 4 obesity patient. HEENT: She is otherwise normocephalic, atraumatic. Sclerae anicteric. Oropharynx pink, moist. Neck: Supple. Chest: Clear. Heart: Regular. Extremities: No significant edema, cyanosis, or clubbing noted. Neurological: Face appears intact. Difficult to determine any focal facial weakness and numbness, a lthough there is some right-sided tingling the patient has to the face. Perhaps a mild decreased celsa olabial fold in terms of excursion, but overall fairly symmetric. In the motor examination of upper extremity on the right, around 4/5 proximally and distally and in the right lower extremity as well, 4/5. On the left side, she was 5/5 proximally and distally. Decreased sensation in the right face, arm, and leg compared to the left side. Weakness on the right side and not on the left. Intact coor dination. She worked with the physical therapist today and was able to ambulate about 150 feet with front wheeled walker with standby assistance. Did take 1 seated rest break. She did toileting indep endently, noted that she would benefit from aggressive therapy, if possible inpatient rehabilitation. The speech pathologist did see the patient, provided education, and she was found to have modified independence for short-term memory, independent for long-term memory. Her comprehension was independ ent, intelligibility was independent and she was not recommended to continue speech as she had no swa llowing issues. Assessment And Plan: Ms. Donovan is a 44-year-old patient who has multiple strokes and these occurred in part to the brain, most likely related to uncontrolled hypertension, which the patient does have a nd these are likely lacunar strokes, which affect basal ganglia, brainstem, thalamus, internal capsul e, and cerebellum. In her case as noted above, the new stroke on the left brain has explained jodi rowland's right-sided symptoms and she has had chronic strokes in vascular territories. Plan: She should have aggressive management of her hypertension. Blood sugars are better controlled currently and dyslipidemia is also controlled. She should work on a weight loss plan to decrease BM I to less than 30. Modifications of diet and exercise are very critical and were communicated with kashif elizondo patient. At this point, she does require aggressive therapy to help her return towards a good lev el of functioning and minimize the risk of her going home and worsening. Therefore, it is recommende d that she if possible in inpatient rehabilitation to regain functioning and minimize her again risk of worsening such as falling and injury and continue aggressive current medication management includi ng aspirin, Plavix, folic acid, statin, and again blood pressure management. LB/MODL Voice ID: [id number] Report ID: [id number]
[2024-11-10 05:27] LABS: Absolute Eosinophils 0.2 K/uL (0-0.5); Absolute Neutrophil 4.7 K/uL (1.8-8.0); Basophils % 0.5 % (0-1.3); Eosinophils % 2.5 % (0-4.4); Hematocrit 24.9 % (36.0-45.0); Hemoglobin 8.4 g/dL (12.0-15.0); Lymphocytes % 33.3 % (15.3-44.8); MCH 30.8 pg (27.0-35.0); MCHC 33.7 g/dL (32.0-36.0); MCV 91.3 fL (80-100); MPV 7.4 fL (7.6-11.3); Monocytes % 10.8 % (3.3-12.3); Neutrophils % 52.9 % (41.7-73.7); Nucleated Red Blood Cells % 0.1 % (0-0); Platelets 310 thou/uL (152-406); RBC Red Blood Cell Count 2.73 M/uL (3.86-4.86); Red Cell Distribution Width 14.7 % (12.1-15.2)
[2024-11-10 06:45] LABS: Anion Gap 10.8 mEq/L (5.0-15.0); Magnesium 1.7 mg/dL (1.6-2.4); Phosphorus 3.8 mg/dL (2.5-4.9); Potassium 3.8 mEq/L (3.5-5.1); Uric Acid 10.4 mg/dL (2.6-6.0)
[2024-11-10] MEDS: CALCITROL 0.25 MCG CAP PO SCH (09:13)
[2024-11-10] MEDS: DRISDOL (VITAMIN D=ERGOCALCIFEROL) 50000 UNIT CAP PO SCH (09:13)
[2024-11-10] MEDS: AMLODIPINE 10 MG TAB PO SCH (09:13)
--- NOTE | 2024-11-10 16:54 | P.DS ---
Admission Date: 11/09/24 Discharge Date: 11/10/24 Disposition: ROUTINE DISCHARGE Discharge Condition: GOOD Reason for Admission: Right sided paresthesias, weakness Brief History of Present Illness: Diagnosis Acute CVA of the Left posterior limb of internal capsule extending to the centrum semiovale, and right lentiform nucleus CKD 4 Diabetes mellitus type [id number] Hypertension HPI 11/08/23 Mireille Donovan is a 44-year-old female with history of uhv-hiqvzhz-inaauomlx diabetes, hypertension, previous CVA presents emergency department chief complaint of right lower extremity weakness, right-sided paresthesias, slurred speech. She reports symptoms began around 8 or 9 PM last night on 11/07. She had a recent stroke in July 2024 to the posterior left basal ganglia. She denies taking aspirin, Plavix or a statin outpatient. Patient was evaluated in the emergency department labs are significant for A creatinine of 2.71 which is similar to baseline, hemoglobin 9.4 hematocrit 28[address] head was negative for acute findings, chest x-ray unremarkable. Patient does have drift of the right lower extremity, mild slurred speech, paresthesias of the right side. Given aspirin in ED, will admit for further evaluation management possible ischemic CVA versus TIA Hospital Course: Mireille Donovan is a pleasant 44 year old female with a past medical history significant for kzr-dbjcnhh-oezelyjpq diabetes, hypertension, previous CVA who was admitted to the [facility] on CVA evaluation for 11/08/24. Mireille experienced extremity weakness, right-sided parethesia, and slurred speech. She reports not taking her medications as prescribed and had a recent stroke in July 2024. MRI brain reports "2 new foci of diffusion signal abnormality in the left posterior limb of internal capsule extending to the centrum semiovale, and right lentiform nucleus, concerning for acute to subacute infarcts". On evaulation this morning, she was ambulating in her room slowly but independently with her walker. She has worked with physical therapy. Because she is non-compliant she is a high risk for continued stroke and repeat admission. Education was provided concerning medication compliance for better recovery and reducing the risk of continued strokes. On 11/10/24, Mireille was seen on morning rounds and deemed medically stable for discharge home with family support and OP physical therapy. Mireille was discharged with instructions to schedule follow-up appointments with Dr. Kunz, Dr. Lee, and PCP. Mireille was provided prescriptions for Norvasc, Statin, plavix. Physical exam GEN: Alert and oriented x 3, NAD HEENT: Normal conjunctiva, sclera anicteric CV: Regular rate and rhythm, no edema Pulm: Nonlabored respirations on room air ABD: Soft and benign on palpation, ND/NT, normal active bowel sounds MSK: No joint tenderness Integumentary: No rashes Neuro: Normal speech, normal affect, right lower extremity weakness, NIH score 2 Vital Signs/Physical Exam: Temp Pulse Resp BP Pulse Ox 98.4 F 86 16 161/84 H 98 11/10/24 12:00 11/10/24 12:00 11/10/24 12:00 11/10/24 12:00 11/10/24 12:00 Laboratory Data at Discharge: WBC 8.90 thou/uL (4.3-10.9) 11/10/24 05:07 Hgb 8.4 g/dL (12.0-15.0) L 11/10/24 05:07 Hct 24.9 % (36.0-45.0) L 11/10/24 05:07 Plt Count 310 thou/uL (152-406) 11/10/24 05:07 PT 12.3 SECONDS (9.4-12.5) 11/08/24 10:15 INR 1.10 11/08/24 10:15 APTT 38.2 SECONDS (24.3-36.9) H 11/08/24 10:15 Sodium 142 mEq/L (136-145) 11/10/24 05:07 Potassium 3.8 mEq/L (3.5-5.1) 11/10/24 05:07 BUN 35 mg/dL (7-18) H 11/10/24 05:07 Creatinine 2.60 mg/dL (0.55-1.02) H 11/10/24 05:07 Glucose 88 mg/dL (74-106) 11/10/24 05:07 Uric Acid 10.4 mg/dL (2.6-6.0) H 11/10/24 05:07 Phosphorus 3.8 mg/dL (2.5-4.9) 11/10/24 05:07 Magnesium 1.7 mg/dL (1.6-2.4) 11/10/24 05:07 Triglycerides 92 mg/dL (<150) 11/09/24 06:18 Cholesterol 145 mg/dL (<200) 11/09/24 06:18 HDL Cholesterol 36 mg/dL (40-60) L 11/09/24 06:18 Cholesterol/HDL Ratio 4.03 11/09/24 06:18 Home Medications: Albuterol Sulfate [Albuterol Sulfate 0.083% Neb Soln] 0.63 mg NEB Q6HP PRN 04/11/22 Budesonide/Formoterol Fumarate [Symbicort 160-4.5 Mcg Inhaler] 2 puff IH PRN 04/11/22 Linagliptin [Tradjenta] 5 mg PO DAILY 04/11/22 carvediloL [Coreg] 25 mg PO BID #60 tablet 04/17/22 Bumetanide 2 mg PO DAILY 07/30/24 Doxazosin [Cardura*] 4 mg PO BEDTIME 07/30/24 Levothyroxine [Synthroid*] 75 mcg PO [id number] 07/30/24 Metformin ER [Glucophage ER*] 500 mg PO BID 07/30/24 Tirzepatide [Mounjaro] 7.5 mg SQ Q7D 07/30/24 Gabapentin 300 mg PO DAILY 11/08/24 Isosorbide Carolina (Bid) [Ismo 10 mg Tab*] 10 mg PO BID 11/08/24 Atorvastatin Calcium [Lipitor] 40 mg PO BEDTIME #30 tab 11/09/24 Clopidogrel Bisulfate [Plavix*] 75 mg PO DAILY #30 tab 11/09/24 Amlodipine [Norvasc*] 10 mg PO DAILY 30 Days #30 tab 11/10/24 New Medications: Atorvastatin Calcium [Lipitor] 40 mg PO BEDTIME #30 tab Amlodipine [Norvasc*] 10 mg PO DAILY 30 Days #30 tab Clopidogrel Bisulfate [Plavix*] 75 mg PO DAILY #30 tab Physician Discharge Instructions: Patient was admitted to the hospital for right leg weakness, right facial paresthesias. She had a history of a stroke in July affecting the left basal ganglia. She stayed inpatient rehab and had a good recovery. CT head on admission was negative for acute findings, MRI of the brain was performed on 11/09/2024 which showed 2 new foci of diffusion signal abnormality in the left posterior limb of the internal capsule extending to the centrum semiovale and right lentiform nucleus concerning for acute to subacute infarcts. Patient is experiencing some weakness in the right lower extremity and paresthesias to the right side of the face, her NIH score is 2. She did work with physical therapy when he was able to ambulate with a walker with contact- guard assist. Patient interested in an outpatient physical therapy which will be arranged. Patient reports that she was not taking aspirin, Plavix or a statin at home prior to this most recent CVA. She does have CKD and her renal function is at baseline. She was counseled on the importance of antiplatelet medications with daily aspirin until otherwise instructed by her physician as well as 1 month of clopidogrel 75 mg daily and a statin at night. Prescriptions for Plavix, statin, and Norvasc sent to [facility] in [place]. Continue daily baby aspirin Continue other medications as previously prescribed Follow-up with Dr. Kunz as scheduled on 11/12 Diet: Renal Activity: Fall precautions Followup: Vitor Lee DO [ACTIVE - CAN ADMIT] - 1 Week Ventura Kunz MD [ASSOCIATE-ACTIVE - CAN ADMIT] - 2-3 Days Marc Perez MD [Primary Care Provider] - 1 Week
[2024-11-10 17:17] VITALS: BP 162/74; TEMP 98
--- NOTE | 2024-11-10 20:13 | P.PN ---
Date of Service: 11/10/24 Vital Signs Temp Pulse Resp BP Pulse Ox 98.0 F 84 16 162/74 H 98 11/10/24 16:00 11/10/24 16:00 11/10/24 16:00 11/10/24 16:00 11/10/24 16:00 Assessment/ Plan: Nephrology No dyspnea No chest pain Feeling better No acute events overnight Vitals, medications, blood work and imaging reviewed in the chart General: In no apparent distress, Oriented x3, Cooperative HEENT: Atraumatic Neck: Supple Respiratory: Normal air movement Cardiovascular: No edema, Regular rate/rhythm Gastrointestinal: Soft and benign, Non-distended Musculoskeletal: No clubbing, No contractures Integumentary: No rashes, No cyanosis Neurological: Normal speech Laboratory Data (last 24 hrs) 11/08/24 11/08/24 11/08/24 10:15 10:15 10:15 WBC 9.80 Hgb 9.4 L Hct 28.1 L Plt Count 336 PT 12.3 INR 1.10 APTT 38.2 H Sodium 140 Potassium 4.3 BUN 35 H Creatinine 2.71 H Glucose 105 Imagings Data: [id number] Procedure: Chest Single View HISTORY: Shortness of breath COMPARISON: July 2024 FINDINGS: The lungs appear clear of acute infiltrate. No significant pleural effusion noted. The heart is moderately enlarged.. IMPRESSION: No acute abnormality is displayed. [id number] EXAM: CT brain without contrast HISTORY: Numbness COMPARISON: July 2024 TECHNIQUE: Multiple contiguous axial images were obtained and a CT of the brain without contrast.. Sagittal and coronal reconstruction performed. Automated exposure control, adjustment of the mA and/or kV according to patient size, and/or iterative reconstruction. Unless otherwise specified, incidental findings do not require dedicated imaging follow-up FINDINGS: An intracranial bleed is not seen Ventricles are normal caliber No extra-axial fluid collection noted Subacute left basal ganglia infarction. Old right internal capsule/basal ganglia infarcts. Right occipital/parietal infarct. No fluid within the visualized sinuses or mastoids noted. IMPRESSION: No acute intracranial abnormality noted. If the patient continues to have Conclusions/Impression: CKD IV with Proteinuria -No NSAIDs HTN with CKD -Continue Coreg 25mg BID -Continue Doxazosin 4mg BID -Continue Isosorbide -Agree with Amlodipine Peripheral Edema -Continue Bumex DM II with CKD -RISS prn Anemia in chronic illness -Retacrit prn CKD MBD Secondary HyperParathyroidism -Continue Calcitriol Case reviewed with Dr. Smith
--- NOTE | 2024-11-16 11:13 | EKG ---
Test Date: 2024-11-08 Test Time: 10:37:55 Professor Computer Science: AWILDA MEASUREMENT RESULTS: Intervals: Rate: 77 TX: 194 QRSD: 92 QT: 422 QTc: 477 Keller: P: 46 TX: 194 QRS: 6 T: 61 INTERPRETIVE STATEMENTS: Normal sinus rhythm Normal ECG Compared to ECG 07/29/2024 16:54:50 No significant changes Electronically Signed On 11-16-24 11:01:55 TRIAGE CLINICIAN by Evan Pantoja
== END 2024-11-10 17:38 | disposition home or self-care (01) | DRG 65 ==
LOC: ER 09:07 → ERHOLD 13:11 → 2ND 15:06 → OBSVTOIN 11-09 14:43
PROVIDERS: ADMIT Hospitalist; ATTEND Internal Medicine
DX: I63.9 Cerebral infarction, unspecified (principal); I69.351 Hemiplegia and hemiparesis following cerebral infarction affecting right dominant side; N18.4 Chronic kidney disease, stage 4 (severe); N25.81 Secondary hyperparathyroidism of renal origin; Z68.43 Body mass index [BMI] 50.0-59.9, adult; E66.01 Morbid (severe) obesity due to excess calories; I12.9 Hypertensive chronic kidney disease with stage 1 through stage 4 chronic kidney disease, or unspecified chronic kidney disease; E11.22 Type 2 diabetes mellitus with diabetic chronic kidney disease; D63.1 Anemia in chronic kidney disease; G83.11 Monoplegia of lower limb affecting right dominant side; E78.5 Hyperlipidemia, unspecified; E03.9 Hypothyroidism, unspecified; R20.2 Paresthesia of skin; R29.702 NIHSS score 2; R47.81 Slurred speech; Z59.82 Transportation insecurity; Z56.0 Unemployment, unspecified; Z79.4 Long term (current) use of insulin; Z79.02 Long term (current) use of antithrombotics/antiplatelets; Z59.71 Insufficient health insurance coverage; Z79.890 Hormone replacement therapy; Z79.84 Long term (current) use of oral hypoglycemic drugs; Z91.148 Patient's other noncompliance with medication regimen for other reason; Z79.899 Other long term (current) drug therapy
CPT/HCPCS: 36415; 70450; 70551; 71045; 80048; 80061; 81001; 82947; 83735; 83880; 84100; 84484; 84550; 85025; 85610; 85730; 92523; 93005; 97116; 97161; 97530; 99285; G0378; J0360; J1644; J3535

== ENCOUNTER 2025-01-27 18:43 | Emergency (ER) | payer OTHER ==
[2025-01-27] MEDS ORDERED: ACETAMINOPHEN 500 MG TAB ONE (19:26)
[2025-01-27] MEDS ORDERED: IBUPROFEN 400 MG TAB ONE (19:26)
--- NOTE | 2025-01-27 20:01 | RAD REPORT ---
Exam:Knee Left 3 View HISTORY: Left knee pain FINDINGS: No fracture or dislocation seen. Small joint effusion. Mild to moderate osteoarthritis. Osteoporosis. If the patient continues to have symptoms to suggest an occult fracture, ligamentous or meniscal inju ry then MRI would be recommended
--- NOTE | 2025-01-27 20:01 | RAD REPORT ---
Exam:Knee Right 3 View HISTORY: Right knee pain FINDINGS: No fracture or dislocation seen Mild to moderate osteoarthritis If the patient continues to have symptoms to suggest an occult fracture, ligamentous or meniscal inju ry then MRI would be recommended
--- NOTE | 2025-01-27 20:06 | ER ---
Nurse's Notes [facility] Name: Mireille Donovan Age: 44 yrs Sex: Female : 1980 Arrival Date: 01/27/2025 Time: 18:43 Bed DX4 Private MD: Diagnosis: Pain in right knee;Pain in left knee Presentation: 01/27 19:15 Onset of symptoms was January 26, 2025. iw 19:15 Acuity: NICOLE 4 iw 19:16 Chief complaint: EMS states: fell in shower last night, unable to bear weight today. iw Coronavirus screen: At this time, the client does not indicate any symptoms associated with coronavirus-19. Ebola Screen: No symptoms or risks identified at this time. Initial Sepsis Screen: Does the patient meet any 2 criteria? No. Patient's initial sepsis screen is negative. Does the patient have a suspected source of infection? No. Patient's initial sepsis screen is negative. Risk Assessment: Do you want to hurt yourself or someone else? Patient reports no desire to harm self or others. 19:16 Method Of Arrival: EMS: [facility] iw Triage Assessment: 20:33 General: Appears in no apparent distress. obese, well groomed, Behavior is calm, vc1 cooperative, appropriate for age. Pain: Complains of pain in right knee Pain does not radiate. Neuro: Level of Consciousness is awake, alert, obeys commands, Oriented to person, place, time, situation, Appropriate for age. Derm: Skin is intact, is healthy with good turgor, Skin is dry, Skin temperature is warm. Musculoskeletal: Reports pain in right knee. Historical: - Allergies: 19:14 No Known Allergies; iw - PMHx: 19:14 Asthma; CHF; CVA; Diabetes - IDDM; Hypertension; Hypothyroidism; stroke; iw - PSHx: 19:14 Adenoid excision; section; knee; Tonsillectomy; iw - Immunization history:: Adult Immunizations not up to date. - Infectious Disease History:: Denies. - Social history:: Smoking status: . Screenin:32 [facility] ED Fall Risk Assessment (Adult) History of falling in the last 3 months, vc1 including since admission Yes- single mechanical fall (1 pt) Confusion or Disorientation No (0 pts) Intoxicated or Sedated No (0 pts) Impaired Gait No (0 pts) Mobility Assist Device Used No (0 pt) Altered Elimination No (0 pt) Score/Fall Risk Level 0 - 2 = Low Risk Oriented to surroundings, Maintained a safe environment, Educated pt \T\ family on fall prevention, incl call for assistance when getting out of bed. Abuse screen: Denies threats or abuse. Nutritional screening: No deficits noted. Tuberculosis screening: No symptoms or risk factors identified. Vital Signs: 19:14 BP 147 / 81; Pulse 94; Resp 16; Temp 98.4; Pulse Ox 100% on R/A; Weight 145.15 kg; iw Height 5 ft. 5 in. ; Pain 9/10; 19:14 Body Mass Index 53.25 (145.15 kg, 165.1 cm) iw 19:14 Pain Scale: Adult iw ED Course: 18:44 Patient arrived in ED. mr 18:45 Mariano Williamson MD is Attending Physician. ec2 19:15 Triage completed. iw 19:56 Knee Right 3 View XRAY In Process Unspecified. EDMS 19:56 Knee Left 3 View XRAY In Process Unspecified. EDMS 20:33 Arm band placed on right wrist. vc1 20:33 No provider procedures requiring assistance completed. Patient did not have IV access vc1 during this emergency room visit. Administered Medications: 19:43 Drug: Acetaminophen PO 1000 mg PO once Route: PO; iw 19:43 Drug: Ibuprofen PO 800 mg PO once Route: PO; iw Medication: 20:34 VIS not applicable for this client. vc1 Outcome: 20:06 Discharge ordered by MD. ec2 20:34 Discharged to home via wheelchair, with family, vc1 20:34 Condition: stable 20:34 Discharge instructions given to patient, Instructed on discharge instructions, follow up and referral plans. Demonstrated understanding of instructions, follow-up care, 20:34 Patient left the ED. vc1 Signatures: Dispatcher [employer] EDKeyonna Lange, Reg Reg Leeann Tate RN RN iw Lesa Grijalva RN RN vc1 Mariano Williamson MD MD ec2 Corrections: (The following items were deleted from the chart) 19:15 19:14 BP 147 / 81; Pulse 94bpm; Resp 16bpm; Pulse Ox 100% RA; Temp 98.4F; iw iw
--- NOTE | 2025-01-27 20:06 | EDPHYS ---
Physician Documentation [facility] Name: Mireille Donovan Age: 44 yrs Sex: Female : 1980 Arrival Date: 01/27/2025 Time: 18:43 Bed DX4 Private MD: ED Physician Mariano Williamson HPI: 01/27 19:18 This 44 yrs old Black Female presents to ER via EMS with complaints of Fall Injury, ec2 Knee Injury. 19:18 Patient arrives today for evaluation of bilateral knee pain. Had a fall yesterday and ec2 fell onto her knees while tracking on the shower. No LOC, reports bilateral knee pain.. Historical: - Allergies: 19:14 No Known Allergies; iw - PMHx: 19:14 Asthma; CHF; CVA; Diabetes - IDDM; Hypertension; Hypothyroidism; stroke; iw - PSHx: 19:14 Adenoid excision; section; knee; Tonsillectomy; iw - Immunization history:: Adult Immunizations not up to date. - Infectious Disease History:: Denies. - Social history:: Smoking status: . ROS: 19:18 Constitutional: as per hpi ec2 Exam: 19:18 Constitutional: GEN: NAD Head: atraumatic Eyes: EOMI Ears: External ears are ec2 normal. CV: regular rate LUNGS: no respiratory distress ABD: non-distended SKIN: no evidence of rashes MSK: Bilateral knees with medial knee TTP without significant deformities appreciated. No proximal or distal discomfort on palpation Vital Signs: 19:14 BP 147 / 81; Pulse 94; Resp 16; Temp 98.4; Pulse Ox 100% on R/A; Weight 145.15 kg; iw Height 5 ft. 5 in. ; Pain 9/10; 19:14 Body Mass Index 53.25 (145.15 kg, 165.1 cm) iw 19:14 Pain Scale: Adult iw MDM: 19:17 Medical Screening Exam initiated ec2 19:18 Data reviewed: vital signs, nurses notes. ED course: Patient arrives today for ec2 evaluation of bilateral knee pain after fall. Examination yields MSK findings above. Will obtain radiographs. DDx includes contusion, fracture.. 20:04 ED course: Bilateral knee x-rays are negative for acute traumatic pathology. Will ec2 discharge home have her follow-up with primary care doctor. Instructed [id number] medications. Return precautions given.. 01/27 19:18 Order name: Knee Right 3 View XRAY; Complete Time: 20:04 ec2 01/27 19:18 Order name: Knee Left 3 View XRAY; Complete Time: 20:04 ec2 Administered Medications: 19:43 Drug: Acetaminophen PO 1000 mg PO once Route: PO; iw 19:43 Drug: Ibuprofen PO 800 mg PO once Route: PO; iw Disposition Summary: 01/27/25 20:06 Discharge Ordered Notes: Location: Home ec2 Condition: Stable ec2 Diagnosis - Pain in right knee ec2 - Pain in left knee ec2 Followup: ec2 - With: Private Physician - When: - Reason: Re-evaluation by your physician Discharge Instructions: - Discharge Summary Sheet ec2 - Acute Knee Pain, Adult ec2 Forms: - Medication Reconciliation Form ec2 - Antibiotic Education ec2 - Prescription Opioid Use ec2 - Patient Portal Instructions ec2 - Leadership Thank You Letter ec2 Signatures: Dispatcher [employer] Leeann Medley RN RN iw Corral, Edwin, MD MD ec2
[2025-01-27 21:58] VITALS: BP 147/81; TEMP 98.4; O2SAT 100
== END 2025-01-27 20:34 | disposition home or self-care (01) ==
LOC: ER 18:43
DX: M25.562 Pain in left knee (principal); M25.561 Pain in right knee; W18.30XA Fall on same level, unspecified, initial encounter

== ENCOUNTER 2025-07-20 08:25 | Day surgery (SDC) | payer OTHER ==
[2025-07-19 08:59] LABS: Absolute Lymphocytes (CBC) 2.9 K/uL (0.7-4.9); Hematocrit 30.8 % (36.0-45.0); Hemoglobin 10.1 g/dL (12.0-15.0); MCH 31.1 pg (27.0-35.0); MCHC 32.8 g/dL (32.0-36.0); MCV 94.8 fL (80-100); MPV 7.6 fL (7.6-11.3); Nucleated RBC Absolute Count 0.0 (0-0); Nucleated Red Blood Cells % 0.0 % (0-0); RBC Red Blood Cell Count 3.25 M/uL (3.86-4.86); White Blood Count 6.20 thou/uL (4.3-10.9)
[2025-07-19 09:03] LABS: PT Prothrombin Time 11.6 SECONDS (10-13.0); PTT, Activated Partial Thromb 33.1 SECONDS (27.2-37.4); Protime INR 1.03
[2025-07-19 09:13] LABS: Anion Gap 10.1 mEq/L (5.0-15.0); BUN Blood Urea Nitrogen 31.0 mg/dL (7-18); Glucose Level 108.0 mg/dL (74-106); Potassium 4.1 mEq/L (3.5-5.1)
[2025-07-20] MEDS: NA CHLORIDE 0.9% 1,000 ML ONE (08:25)
[2025-07-20] MEDS ORDERED: GENTAMICIN SULF 80 MG/2ML INJ ONE (09:41)
[2025-07-20] MEDS ORDERED: GLUCAGON 1 MG/VIAL ONE (09:41)
[2025-07-20] MEDS ORDERED: LIDOCAINE 1% MPF 5 ML VIAL ONE (09:47)
[2025-07-20] MEDS ORDERED: EPHEDRINE SULF 50 MG/ML VIAL ONE (09:48)
[2025-07-20] MEDS ORDERED: FENTANYL CITR 100 MCG/2 ML ONE (10:02)
[2025-07-20] MEDS ORDERED: MIDAZOLAM HCL 2 MG/2 ML INJ ONE (11:58)
[2025-07-20] MEDS ORDERED: GLYCOPYRROLATE 0.2 MG/ML SYR ONE (13:13)
[2025-07-20] MEDS ORDERED: ONDANSETRON 4 MG/2 ML VIAL ONE (13:13)
[2025-07-20 13:42] VITALS: TEMP 97.1
[2025-07-20 13:43] VITALS: O2SAT 98
[2025-07-20 13:44] VITALS: BP 137/77
== END 2025-07-20 13:40 | disposition home or self-care (01) ==
LOC: OR 08:25
PROVIDERS: ATTEND Internal Medicine Gastroenterology
PROC: 0FC98ZZ Extirpation of Matter from Common Bile Duct, Via Natural or Artificial Opening Endoscopic (ICD-10-PCS; 2025-07-20)
PROC: 0F798DZ Dilation of Common Bile Duct with Intraluminal Device, Via Natural or Artificial Opening Endoscopic (ICD-10-PCS; principal; 2025-07-20 10:00)
DX: K80.20 Calculus of gallbladder without cholecystitis without obstruction (principal); R10.9 Unspecified abdominal pain; R10.11 Right upper quadrant pain; K59.00 Constipation, unspecified; R10.13 Epigastric pain
CPT/HCPCS: 85025; 80048; 36415; 85610; 82947 ×2; 85730; 43262; 43273; 43264; 43277; 43274; J2704; J2003; J2250; J3010; J2405; J7030; C1769; J1580; J1610